=== PATIENT | male | born 1975 | race Caucasian/White ===

== ENCOUNTER 2018-06-26 19:16 | Inpatient (IN) ==
[2018-06-26] MEDS ORDERED: 0.9 % Sodium Chloride 1,000 ML IVC ONE (19:53)
--- NOTE | 2018-06-26 19:56 | Emergency Department Note ---
Disposition Clinical Impression: Seizure disorder, Encephalopathy Disposition: Admitted As Inpatient Condition: Fair Seizure HPI - General Chief Complaint: ED Seizure Stated Complaint: headache,disoriented Time Seen by Provider: 06/26/18 19:31 Source: patient Mode of arrival: ambulatory Limitations: no limitations Nursing Notes Reviewed: Yes Vital Signs Reviewed: Yes - History of Present Illness HPI Narrative: 43-year-old male history of seizure disorder presents for evaluation of disorientation. Patient's history provided V the family at bedside. Patient patient had a seizure proximally 3 days ago decided to burger. States that he has had 2 seizures that prompted that ED visit and hospitalization. Patient observed overnight and was sent home. Since in the patient's had 3 seizures yesterday the longest lasting proximally 20 minutes. No abortive medication was given. Described as generalized convulsive seizures with postictal periods. Patient denied any chest pain, short of breath, fevers. Family states that his seizures are typically do not last that long. Patient reports that he has been taking seizure medications as prescribed. Patient denies any abdominal pain. Patient's family became concerned today as the patient's been acting differently over the past 24 hours. States the patient has seen things that are not entirely there. Also states the patient has been hearing things that are not there is well. Patient's also been acting inappropriately for the family that is not his normal self. - Related Data Allergies Allergy/AdvReac Type Severity Reaction Status Date / Time No Known Allergies Allergy Verified 06/26/18 20:04 All systems ED: reviewed and negative except as stated. Constitutional: Denies: fever Cardiovascular: Denies: chest pain Respiratory: Denies: cough Gastrointestinal: Denies: abdominal pain, nausea, vomiting Musculoskeletal: Denies: back pain, neck pain Past Medical History - Past Medical History Source: patient Medical history: Reports: diabetes, hypertension Psychiatric history: Reports: no psych history - Social History Smoking Status: Never smoker Alcohol use: Reports: none Drug use: Reports: none Physical Exam - General Limitations: altered mental status General appearance: alert - Head Head exam: atraumatic, normocephalic, normal inspection - Eye Eye exam: Present: normal appearance, PERRL, EOMI - ENT ENT exam: normal exam, mucous membranes moist - Neck Neck exam: Present: normal inspection - Chest Chest inspection: Present: normal inspection, symmetric chest wall rise - Respiratory Respiratory exam: Present: normal lung sounds bilaterally. Absent: respiratory distress - Cardiovascular Cardiovascular exam: Present: regular rate, normal rhythm. Absent: systolic murmur - Abdominal Exam Abdominal exam: Present: soft, Non-Tender - Extremities Exam Extremities exam: Present: normal inspection. Absent: pedal edema - Back Exam Back exam: Present: normal inspection - Neurological Exam Neurological exam: Present: alert, CN II-XII intact. Absent: oriented X3 - Expanded Neurological Exam Patient oriented to: Present: person, place Speech: Present: fluid speech Cranial nerves: EOM function (II, III, IV, ): Normal, facial sensation (V): Normal, facial palsy (VII): Normal, spinal accessory function (XI): Normal, tongue deviation (XII): Normal Motor strength - LUE: 5/5 Motor strength - RUE: 5/5 Motor strength - LLE: 5/5 Motor strength - RLE: 5/5 Coma Scale Eye Opening: Spontaneous Coma Scale Motor Response: Obeys Commands Coma Scale Verbal Response: Confused Coma Scale Total: 14 - Skin Skin exam: Present: warm, dry, intact, normal color Course Course Narrative: Patient seen and examined. Patient will get basic laboratory evaluation, and drug levels, urinalysis urine drug screen. Patient also get CT imaging of the head. Will tend to gain records from his hospitalization at [facility]. - Reevaluation(s) Reevaluation #1: Patient's lab results and ED course was discussed with the patient family at bedside. All questions were answered. Time: 22:22 - Consultations Consultation #1: Discussed case with Dr. Garcia, neurology. Was aware of plan of care. States that Depakote typically causes elevated ammonia levels. We will check a Depakote level. Family is not entirely reliable on the patient's medications. Recommended loading with Dilantin. Time: 21:22 Consultation #2: Dr. Dubose discussed the case with hepatology at [facility] who felt this was not related to the liver given the unremarkable labs and INR and trans-aminases. States that they would pursue neurologic evaluation for the elevated ammonia level. Time: 23:43 Vital Signs Temperature 98.2 F 06/26/18 19:23 Pulse Rate 86 06/26/18 19:23 Respiratory Rate 18 06/26/18 19:23 Blood Pressure 170/83 06/26/18 19:23 O2 Sat by Pulse Oximetry 97 06/26/18 19:23 Temperature 98.7 F 06/27/18 00:25 Pulse Rate 79 06/27/18 00:25 Respiratory Rate 16 06/27/18 03:35 Blood Pressure 140/85 06/27/18 03:35 O2 Sat by Pulse Oximetry 100 06/27/18 03:35 Oxygen Delivery Oxygen Delivery Room Air Seizure - MDM Narrative Medical decision making narrative: Patient presents with confusion and altered mental status with disorientation. Patient does have history of seizure disorder. Patient has been having seizures concerns for possible post ictal. Patient does not appear to be having any subclinical seizures. Patient had subtherapeutic levels and was loaded with Dilantin per neurology's recommendations. Patient also is noted have an elevated ammonia level. Etiology of this is unclear as the patient does not appear to be Depakote toxic. Patient was given lactulose. Patient will be admitted to the hospital service to help ensure symptom resolution. Ultimately the patient's case was also discussed with hepatology at [facility]. They recommended did not believe that this was related to his liver given his normal liver function tests. Stated they would continue to pursue MANUAL LAT[employer]ACHIN[employer] etiology of his encephalopathy. Agreed with the lactulose. Clinically on exam the patient does not appear to have any signs would exhibit any meningitis symptoms. Patient's altered mental status is likely secondary to his metabolic abnormalities. - Lab Data Lab results reviewed: Yes I reviewed the patient's lab results. Result diagrams: 06/27/18 03:15 06/27/18 03:15 Lab Results 06/26/18 06/26/18 06/26/18 Range/Units 20:00 20:00 20:00 WBC 6.6 (4.3-11.1) K/mcL RBC 4.45 (4.19-5.50) M/mcL Hgb 14.4 (12.9-16.9) g/dL Hct 40.1 (37.5-50.1) % MCV 90.1 (83.0-100.0) fL MCH 32.4 (28.0-33.3) pg MCHC 35.9 H (31.6-35.5) g/dL RDW 13.5 (11.5-14.5) % Plt Count 127 L (140-400) K/mcL MPV 10.7 (9.4-12.4) fL Immature Gran % 0.2 (0-4) % Seg Neutrophils % 39.7 % Lymphocytes % 45.5 % Monocytes % 11.5 % Eosinophils % 1.7 % Basophils % 1.4 % Neutrophils # 2.6 (1.6-8.9) K/mcL Lymphocytes # 3.0 (0.6-4.6) K/mcL Monocytes # 0.8 (0.0-1.3) K/mcL Eosinophils # 0.1 (0.0-0.6) K/mcL Basophils # 0.1 (0.0-0.2) K/mcL PT (9.4-12.1) Seconds INR Sodium 141 (136-145) mEq/L Potassium 3.6 (3.5-5.1) mEq/L Chloride 109 H (98-107) mEq/L Carbon Dioxide 22 L (23-29) mEq/L BUN 8 (6-20) mg/dL Creatinine 0.91 (0.70-1.30) mg/dL Est GFR ( Amer) > 60 (> 60) Est GFR (Non-Af Amer) > 60 (> 60) BUN/Creatinine Ratio 9 (6-26) Glucose 141 H (70-105) mg/dL Calculated Osmolality 293 (280-300) Calcium 9.3 (8.6-10.3) mg/dL Phosphorus 3.6 (2.7-4.5) mg/dL Magnesium 1.9 (1.6-2.6) mg/dL Total Bilirubin 1.3 H (0.3-1.0) mg/dL AST 15 (13-39) Units/L ALT 11 (7-52) Units/L Alkaline Phosphatase 77 (34-104) Units/L Ammonia 130 H (16-53) mcmol/L Troponin I 0.03 (< 0.04) ng/mL Serum Total Protein 8.1 (6.4-8.9) g/dL Albumin 4.0 (3.5-5.7) g/dL Globulin 4.1 H (2.4-3.5) g/dL Albumin/Globulin Ratio 1.0 L (1.1-2.2) Urine Color (Yellow) Urine Clarity (Clear) Urine pH (5.0-8.0) pH Units Ur Specific [place] (1.010-1.025) Urine Protein (Neg-Trace) mg/dL Urine Glucose (UA) (Normal) mg/dL Urine Ketones (Negative) mg/dL Urine Blood (Negative) Urine Nitrite (Negative) Urine Bilirubin (Negative) Urine Urobilinogen (Normal) mg/dL Ur Leukocyte Esterase (Negative) Urine Opiates Screen (Elfkrm=110) ng/mL Ur Barbiturates Screen (Iraonr=731) ng/mL Phenytoin < 0.5 L (10.0-20.0) mcg/mL Valproic Acid < 4 L (50-100) mcg/mL Carbamazepine < 1 L (4-12) mcg/mL Ur Phencyclidine Scrn (Cutoff=25) ng/mL Ur Amphetamines Screen (Tsdrou=6940) ng/mL U Benzodiazepines Scrn (Addtmc=376) ng/mL Urine Cocaine Screen (Cutoff= 300) ng/mL U Marijuana (THC) Screen (Cutoff = 50) ng/mL Ur Drug Screen Interp Ethyl Alcohol < 10 (Less than 10) mg/dL 06/26/18 06/26/18 06/26/18 Range/Units 20:00 20:25 20:25 WBC (4.3-11.1) K/mcL RBC (4.19-5.50) M/mcL Hgb (12.9-16.9) g/dL Hct (37.5-50.1) % MCV (83.0-100.0) fL MCH (28.0-33.3) pg MCHC (31.6-35.5) g/dL RDW (11.5-14.5) % Plt Count (140-400) K/mcL MPV (9.4-12.4) fL Immature Gran % (0-4) % Seg Neutrophils % % Lymphocytes % % Monocytes % % Eosinophils % % Basophils % % Neutrophils # (1.6-8.9) K/mcL Lymphocytes # (0.6-4.6) K/mcL Monocytes # (0.0-1.3) K/mcL Eosinophils # (0.0-0.6) K/mcL Basophils # (0.0-0.2) K/mcL PT 15.9 H (9.4-12.1) Seconds INR 1.4 Sodium (136-145) mEq/L Potassium (3.5-5.1) mEq/L Chloride (98-107) mEq/L Carbon Dioxide (23-29) mEq/L BUN (6-20) mg/dL Creatinine (0.70-1.30) mg/dL Est GFR ( Amer) (> 60) Est GFR (Non-Af Amer) (> 60) BUN/Creatinine Ratio (6-26) Glucose (70-105) mg/dL Calculated Osmolality (280-300) Calcium (8.6-10.3) mg/dL Phosphorus (2.7-4.5) mg/dL Magnesium (1.6-2.6) mg/dL Total Bilirubin (0.3-1.0) mg/dL AST (13-39) Units/L ALT (7-52) Units/L Alkaline Phosphatase (34-104) Units/L Ammonia (16-53) mcmol/L Troponin I (< 0.04) ng/mL Serum Total Protein (6.4-8.9) g/dL Albumin (3.5-5.7) g/dL Globulin (2.4-3.5) g/dL Albumin/Globulin Ratio (1.1-2.2) Urine Color Yellow (Yellow) Urine Clarity Clear (Clear) Urine pH 6.5 (5.0-8.0) pH Units Ur Specific [place] 1.010 (1.010-1.025) Urine Protein Negative (Neg-Trace) mg/dL Urine Glucose (UA) Normal (Normal) mg/dL Urine Ketones Negative (Negative) mg/dL Urine Blood Negative (Negative) Urine Nitrite Negative (Negative) Urine Bilirubin Negative (Negative) Urine Urobilinogen 4.0 H (Normal) mg/dL Ur Leukocyte Esterase Negative (Negative) Urine Opiates Screen Negative (Gatapf=504) ng/mL Ur Barbiturates Screen Negative (Knxuwm=518) ng/mL Phenytoin (10.0-20.0) mcg/mL Valproic Acid (50-100) mcg/mL Carbamazepine (4-12) mcg/mL Ur Phencyclidine Scrn Negative (Cutoff=25) ng/mL Ur Amphetamines Screen Negative (Zqvsap=7098) ng/mL U Benzodiazepines Scrn Negative (Ecddrk=079) ng/mL Urine Cocaine Screen Negative (Cutoff= 300) ng/mL U Marijuana (THC) Screen Negative (Cutoff = 50) ng/mL Ur Drug Screen Interp See Below Ethyl Alcohol (Less than 10) mg/dL - EKG Data EKG attestation: Yes I reviewed and interpreted this EKG. EKG shows normal: sinus rhythm Rate: normal Rhythm: NSR [place]/QRS: normal ST segment depression in: v2, v3, v4 Interpretation: no acute changes, nonspecific ST-T wave changes S.B.A.R. - S.[email or web address].ASumi Situation: Demographics Background: Presenting Complaint Assessment: Vital Signs, Course and respsone to treatment, Patient/Family Expectation Recommendation: Barrier(s) to disposition, Recommendation based on pending studies, treatments, or consults S.B.A.RJelani Report Given to: Dr. Mimi Guallpa Repor Time: 22:08 Attestation Statement - Attestation Attestation: I examined this patient and my medical decision-making was reviewed with the Resident Physician. I agree with the documented findings, disposition and treatment plan as described except to the extent set forth below. Findings consistent with encephalopathy. Discussed case with on-call storm window installer at [facility] who felt this is a neurological problem and not related to the liver dysfunction. Before meals nail to normal, total bilirubin is mildly elevated, no history of cirrhotic disease. We will admit for mental status clearance, start lactulose, discussed case with hospitalist.
[2018-06-26 20:10] LABS: Basophils # 0.1 K/mcL (0.0-0.2); Basophils % 1.4 %; Eosinophils # 0.1 K/mcL (0.0-0.6); Eosinophils % 1.7 %; Hematocrit 40.1 % (37.5-50.1); Hemoglobin 14.4 g/dL (12.9-16.9); Immature Granulocytes % 0.2 % (0-4); Lymphocytes % 45.5 %; Mean Corpuscular HGB Conc 35.9 g/dL (31.6-35.5); Mean Corpuscular Hemoglobin 32.4 pg (28.0-33.3); Mean Corpuscular Volume 90.1 fL (83.0-100.0); Mean Platelet Volume 10.7 fL (9.4-12.4); Monocytes # 0.8 K/mcL (0.0-1.3); Monocytes % 11.5 %; Neutrophils # 2.6 K/mcL (1.6-8.9); Platelet Count 127 K/mcL (140-400); Red Blood Count 4.45 M/mcL (4.19-5.50); Red Cell Distribution Width 13.5 % (11.5-14.5); Segmented Neutrophils % 39.7 %
[2018-06-26 20:39] LABS: Bilirubin,Urine Negative (Negative); Blood,Urine Negative (Negative); Clarity,Urine Clear (Clear); Color,Urine Yellow (Yellow); Glucose,Urine (UA) Normal (Normal); Ketones,Urine Negative (Negative); Leukocyte Esterase,Urine Negative (Negative); Nitrite,Urine Negative (Negative); PH,Urine 6.5 pH Units (5.0-8.0); Protein,Urine Negative (Neg-Trace)
[2018-06-26 20:53] LABS: Alanine Aminotransferase 11 Units/L (7-52); Alkaline Phosphatase 77 Units/L (34-104); Aspartate Amino Transferase 15 Units/L (13-39); BUN/Creatinine Ratio 9 (6-26); Bilirubin,Total 1.3 mg/dL (0.3-1.0); Blood Urea Nitrogen 8 mg/dL (6-20); Calcium 9.3 mg/dL (8.6-10.3); Carbamazepine (Tegretol) < 1 mcg/mL (4-12); Carbon Dioxide 22 mEq/L (23-29); Chloride 109 mEq/L (98-107); Globulin 4.1 g/dL (2.4-3.5); Glucose 141 mg/dL (70-105); Magnesium 1.9 mg/dL (1.6-2.6); Osmolality,Calculated 293 (280-300); Phenytoin (Dilantin) < 0.5 mcg/mL (10.0-20.0); Phosphorous 3.6 mg/dL (2.7-4.5); Potassium 3.6 mEq/L (3.5-5.1); Sodium 141 mEq/L (136-145); Total Protein 8.1 g/dL (6.4-8.9); Troponin I 0.03 ng/mL (< 0.04); eGFR For Non-African Americans > 60 (> 60)
[2018-06-26 20:58] LABS: Amphetamine Screen,Urine Negative ng/mL (Cutoff=1000); Barbiturate Screen,Urine Negative ng/mL (Cutoff=200); Benzodiazepines Screen,Urine Negative ng/mL (Cutoff=200); Cannabinoid Screen,Urine Negative ng/mL (Cutoff = 50); Cocaine Screen,Urine Negative ng/mL (Cutoff= 300); Opiate Screen,Urine Negative ng/mL (Cutoff=300); Phencyclidine Screen,Urine Negative ng/mL (Cutoff=25)
[2018-06-26] MEDS ORDERED: Lactulose Oral Soln 20 GM/30 ML UDC PO ONE (21:05)
[2018-06-26 21:41] LABS: Valproate < 4 mcg/mL (50-100)
[2018-06-26] MEDS ORDERED: Phenytoin 1,000 MG in SYRINGE 1 EACH IVPB ONE (21:49)
--- NOTE | 2018-06-26 22:38 | Internal Med History&Physical ---
<Peewee Alvarado - Last Filed: 06/27/18 01:30> Date of Encounter: 06/26/18 Time of Encounter: 22:38 Internal Medicine - H&P: HPI Chief complaint: Seizure Admitted From: Home History of present illness: Mr. Carreon is a 43 year old male with a PMH of DM type 2, HTN, and Seizure disorder who presented form home due to recurrent seizure activity. Of note, patient was admitted at [facility] 3 days ago for similar symptoms. Patient was discharged home without abortive medication after overnight observation. He presented to the [facility] ED today because family reports he had two more witnessed generalized convulsive seizures with postictal periods. Patient is very confused on exam and unable to provide adequate history of present illness. The patient has been seeing things and hearing things for the past 24 hours that other people don't see or hear according to his family. This is an acute change from his baseline mental status. Patient reports that he has been taking all of his seizure medications as prescribed. Patient denies fever, chills, head or neck trauma, tongue trauma, CP, SOB, abd pain, N/V/D, constipation, urinary incontinence, dysuria, leg edema, or extremity injuries. Past Med Surg Social Fam HX - Past Medical History Medical history: diabetes, hypertension Psychiatric history: no psych history - Past Surgical History Surgical History: no surgical history Additional surgical history: EEG - Social History Smoking Status: Never smoker Alcohol use: none Drug use: none Occupational status: employed ("[employer]") Current living situation: Home, With Family Activity Level: Independent ambulation - Family History Mother Living Status: Still Living Hx Family Neuromuscular Disorders: No Hx Family Neurologic Disorders: No Hx Family Psychosocial Disorders: Yes (ADHD) Father Living Status: Still Living Hx Family Neuromuscular Disorders: No Hx Family Neurologic Disorders: No Internal Medicine - H&P: Meds 3 Allergy/AdvReac Type Severity Reaction Status Date / Time No Known Allergies Allergy Verified 06/26/18 20:04 ROS unobtainable: due to mental status All Systems PM: A 10-system review of systems was performed and is negative for pertinent findings except as documented above in the HPI. - Constitutional Vitals: Temp Pulse Resp BP Pulse Ox 98.2 F 18 85 128/74 96 06/26/18 19:23 06/26/18 21:19 06/26/18 21:19 06/26/18 21:19 06/26/18 21:19 General appearance: Present: cooperative, A&O X 2, no acute distress, obese. Absent: answers questions appropriately - Head Head exam: Present: atraumatic, normocephalic - Eye Eye exam: Present: EOMI, PERRL, conjuntiva pink, sclera anicteric Pupils: Present: PERRL - ENT ENT exam: Present: mucous membranes dry, normal oropharynx - Neck Neck exam general surgery: Present: full ROM, normal inspection, supple, trachea midline. Absent: lymphadenopathy, tenderness, nuchal rigidity - Respiratory Respiratory exam: Present: CTAB. Absent: accessory muscle use, rales, rhonchi, wheezes - Cardiovascular Cardiovascular exam: Present: RRR, +S1, +S2. Absent: diastolic murmur, gallop, rubs, systolic murmur - GI/Abdominal GI/Abdominal exam: Present: guarding (RUQ), normal bowel sounds, soft, no peritoneal signs. Absent: distended, tenderness - Extremities Exam Extremities exam: Present: normal capillary refill, normal inspection, warm, radial pulses palpable and symmetrical. Absent: calf tenderness, cyanotic, pedal edema - Back Exam Back exam: Present: normal inspection. Absent: paraspinal tenderness, tenderness - Neurological Exam Neurological exam: Present: abnormal gait (unsteady), altered, strengths equal and symetr throughout (unable to co-operate with exam due to AMS, no gross neurologic motor sensory deficits). Absent: motor sensory deficit, pronater drift, facial droop, speech deficit - Skin Skin exam: Present: dry, intact, normal color, warm. Absent: rash Internal Med - H&P Results - Labs CBC & Chem 7: 06/26/18 20:00 06/26/18 20:00 - Pulse Oximetry Interpretation Digit-Finger O2 Sat by Pulse Oximetry: 96 (On room air) - EKG Data -: EKG Interpreted by Myself EKG shows normal: sinus rhythm Rate: normal (nonspecific ST-T wave changes with ST segment depression in: v2, v3, v4) - Impressions ITS Impressions Head CT 06/26/18 19:54 IMPRESSION: No acute intracranial abnormality. Unchanged encephalomalacia within the right anterior temporal lobe, with unchanged slight midline shift to the right secondary to volume loss. No new abnormalities identified. D/ / 06/26/2018 20:41:39 Jayce Rodriguez MD / [email or web address] Interpreting Provider: Jayce Rodriguez MD - Assessment and plan (1) Acute metabolic encephalopathy Current Visit: Yes Status: Acute Assessment and plan: Ammonia level 130 (Depakote typically causes elevated ammonia levels per neurologist) Dilantin level < 0.5, Valproic acid level < 4, Carbamazepine level < 1 CT brain revealed no acute intracranial abnormality. Unchanged encephalomalacia within the right anterior temporal lobe, with unchanged slight midline shift to the right secondary to volume loss. Continue Lactulose 30mg PO q1h until patient has 2-3 soft bowel movements Sitter at bedside (2) Seizure disorder Current Visit: Yes Status: Chronic Assessment and plan: On 06/16/17 his 48 hour ambulatory EEG captured intermittent epileptiform discharged at the right anterior temporal region. 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 Please correlate clinically. Patient admitted at [facility] 3 days ago for similar symptoms. Patient was discharged home without abortive medication after overnight observation. Records were requested. Emergency room physician discussed case with neurologist, Dr. Garcia, who recommended giving a loading dose of Dilantin EEG pending Continue seizure precautions Fall/ aspiration precautions Neurology consulted (3) DM type 2 (diabetes mellitus, type 2) Current Visit: No Status: Chronic Assessment and plan: HGB a1c level 5.9 on 01/04/18 Continue accuchecks and low dose SSI Continue monitoring Qualifiers: Diabetes mellitus fci insulin use: without intermediate project manager use Diabetes mellitus complication status: without complication Qualified Code(s): E11.9 - Type 2 diabetes mellitus without complications (4) HTN (hypertension) Current Visit: Yes Status: Chronic Assessment and plan: Hydralazine prn SBP >170 / DBP >100 Continue monitoring Qualifiers: Hypertension type: essential hypertension Qualified Code(s): I10 - Essential (primary) hypertension (5) Obesity (BMI 30.0-34.9) Current Visit: No Status: Chronic Assessment and plan: Lifestyle modification (6) DVT prophylaxis Current Visit: Yes Status: Acute Assessment and plan: EPCDs - Time Spent With Patient Total time spent is greater than 50% in coordination of care (as documented) at patient's floor/unit and/or counseling patient: <Burton Le P - Last Filed: 06/27/18 07:40> Date of Encounter: 06/27/18 Internal Medicine - H&P: HPI History of present illness: Mr. Carreon is a 43 year old male All Systems PM: A 10-system review of systems was performed and is negative for pertinent findings except as documented above in the HPI. - Constitutional Vitals: Temp Pulse Resp BP Pulse Ox 98.5 F 80 17 145/95 99 06/27/18 07:21 06/27/18 07:21 06/27/18 07:21 06/27/18 07:21 06/27/18 07:21 Internal Med - H&P Results - Labs CBC & Chem 7: 06/27/18 03:15 06/27/18 03:15 Labs: Short CBC 06/27/18 Range/Units 03:15 WBC 6.3 (4.3-11.1) K/mcL Hgb 14.0 (12.9-16.9) g/dL Hct 39.7 (37.5-50.1) % Plt Count 131 L (140-400) K/mcL BMP 06/27/18 03:15 Sodium 140 Potassium 3.5 Chloride 111 H Carbon Dioxide 20 L BUN 7 Creatinine 0.74 Glucose 154 H Calcium 8.9 - Attending Attestation I have seen the patient and performed my own history and physical examination. I have discussed the case with the admitting resident, and I agree with his assessment and plan of care as documented in his H&P. Briefly, patient admitted for seizure activity and post-ictal state. He also had hyperammonemia , possibly secondary to depakote use. Patient was loaded with dilantin in ED. Neurology has been consulted. We will admit inpatient. Obtain EEG in AM. We will await further recommendations from neurology in regards to anti- epileptics. We have started lactulose for hyperammonemia. We will need to investigate this further in the AM, as patient is still confused, and it is difficult to get accurate history from him. - Assessment and plan (1) Seizure disorder Current Visit: Yes Status: Chronic (2) Acute metabolic encephalopathy Current Visit: Yes Status: Acute (3) DM type 2 (diabetes mellitus, type 2) Current Visit: No Status: Chronic Qualifiers: Diabetes mellitus intermediate project manager insulin use: without intermediate project manager use Diabetes mellitus complication status: without complication Qualified Code(s): E11.9 - Type 2 diabetes mellitus without complications (4) Obesity (BMI 30.0-34.9) Current Visit: No Status: Chronic (5) HTN (hypertension) Current Visit: Yes Status: Chronic Qualifiers: Hypertension type: essential hypertension Qualified Code(s): I10 - Essential (primary) hypertension (6) DVT prophylaxis Current Visit: Yes Status: Acute - Time Spent With Patient Total time spent is greater than 50% in coordination of care (as documented) at patient's floor/unit and/or counseling patient:
[2018-06-26] MEDS ORDERED: D5% in Water 1,000 ML IVC PRN (23:33)
[2018-06-26] MEDS ORDERED: Naloxone 0.4 MG/ML INJ IVP PRN (23:33)
[2018-06-26] MEDS ORDERED: Dextrose Gel 15 GM/37.5 ML TUBE PO PRN ×2 (23:33)
[2018-06-26] MEDS ORDERED: *HR* Dextrose 50 % in Water (Syg) 50 ML SYRINGE IVP PRN (23:33)
[2018-06-27 00:09] LABS: INR 1.4; Prothrombin Time 15.9 Seconds (9.4-12.1)
[2018-06-27 00:15] LABS: Ethanol < 10 mg/dL (Less than 10)
[2018-06-27] MEDS: Insulin LISPRO 300 UNITS/3 ML VIAL SQ SCH ×4 (01:49→18:01)
[2018-06-27] MEDS: OXcarbazepine 150 MG TABLET PO SCH ×5 (02:25→20:35)
[2018-06-27] MEDS: 0.9 % Sodium Chloride 1,000 ML IVC SCH ×2 (02:25→11:54)
[2018-06-27] MEDS: Lactulose Oral Soln 20 GM/30 ML UDC PO SCH ×5 (02:25→20:32)
[2018-06-27 03:58] LABS: Hematocrit 39.7 % (37.5-50.1); Mean Corpuscular HGB Conc 35.3 g/dL (31.6-35.5); Mean Corpuscular Hemoglobin 31.6 pg (28.0-33.3); Mean Corpuscular Volume 89.6 fL (83.0-100.0); Mean Platelet Volume 10.9 fL (9.4-12.4); Platelet Count 131 K/mcL (140-400); Red Blood Count 4.43 M/mcL (4.19-5.50); Red Cell Distribution Width 13.5 % (11.5-14.5)
[2018-06-27 04:19] LABS: BUN/Creatinine Ratio 9 (6-26); Blood Urea Nitrogen 7 mg/dL (6-20); Calcium 8.9 mg/dL (8.6-10.3); Carbon Dioxide 20 mEq/L (23-29); Chloride 111 mEq/L (98-107); Glucose 154 mg/dL (70-105); Osmolality,Calculated 291 (280-300); Potassium 3.5 mEq/L (3.5-5.1); Sodium 140 mEq/L (136-145); eGFR For Non-African Americans > 60 (> 60)
[2018-06-27 05:02] LABS: Hepatitis A Antibody IgM Nonreactive (Nonreactive); Hepatitis B Core IgM Nonreactive (Nonreactive); Hepatitis B Surface Antigen Nonreactive (Nonreactive); Hepatitis C Virus Antibody Nonreactive (Nonreactive)
[2018-06-27] MEDS: Pantoprazole 40 MG VIAL IVP SCH (06:46)
[2018-06-27] MEDS: Topiramate 100 MG TABLET PO SCH ×2 (08:36→20:35)
[2018-06-27] MEDS: Acetaminophen 325 MG TABLET PO PRN (08:41)
[2018-06-27] MEDS ORDERED: Lactulose Oral Soln 20 GM/30 ML UDC PO SCH (09:00)
--- NOTE | 2018-06-27 10:38 | Internal Med Progress Note ---
<SpencerEmigdioMoi W - Last Filed: 06/27/18 15:08> Date of Encounter: 06/27/18 Time of Encounter: 10:34 - Assessment and plan (1) Acute metabolic encephalopathy Current Visit: Yes Status: Acute Assessment and plan: Cause of KESHIA unknown at this time seizure related vs metabolic vs infectious Ammonia level 130 (Depakote typically causes elevated ammonia levels per neurologist) today it is 47 after lactulose treatment Dilantin level < 0.5, Valproic acid level < 4, Carbamazepine level < 1 CT brain revealed no acute intracranial abnormality. Unchanged encephalomalacia within the right anterior temporal lobe, with unchanged slight midline shift to the right secondary to volume loss. Continue Lactulose until patient has 2-3 soft bowel movements continue Sitter at bedside (2) Seizure disorder Current Visit: Yes Status: Chronic Assessment and plan: On 06/16/17 his 48 hour ambulatory EEG captured intermittent epileptiform discharged at the right anterior temporal region. 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 Please correlate clinically. Patient admitted at [facility] 3 days ago for similar symptoms. Patient was discharged home without abortive medication after overnight observation. Records were requested. Emergency roomgave loading dose of Dilantin EEG pending Continue current seizure medications per neurology appreciate recs Fall/ aspiration precautions (3) DM type 2 (diabetes mellitus, type 2) Current Visit: No Status: Chronic Assessment and plan: HGB a1c level 5.9 on 01/04/18 Continue accuchecks and low dose SSI Continue monitoring Qualifiers: Diabetes mellitus residential insulin use: without residential use Diabetes mellitus complication status: without complication Qualified Code(s): E11.9 - Type 2 diabetes mellitus without complications (4) HTN (hypertension) Current Visit: Yes Status: Chronic Assessment and plan: Hydralazine prn SBP >170 / DBP >100 Continue monitoring Qualifiers: Hypertension type: essential hypertension Qualified Code(s): I10 - Essential (primary) hypertension (5) DVT prophylaxis Current Visit: Yes Status: Acute Assessment and plan: Pt refused EPCDs - Subjective Interval history: Mr. Carreon is a 43 year old male with a PMH of DM type 2, HTN, and Seizure disorder who presented form home due to recurrent seizure activity. Of note, patient was admitted at [facility] 3 days ago for similar symptoms. Patient was discharged home without abortive medication after overnight observation. He presented to the [facility] ED today because family reports he had two more witnessed generalized convulsive seizures with postictal periods. Patient was sitting up in bed on exam. sitter was in the room. Patient still appears to be altered. He was slow to respond on questioning. Patient states he is doing the same since yesterday. He states he it "tired of this" but wouldn't elaborate. Patient was easily agitated. No seizures today. ammonia level 47 today down from 130 on admission. - Constitutional Vitals: Temp Pulse Resp BP Pulse Ox 98.5 F 80 17 145/95 99 06/27/18 07:21 06/27/18 07:21 06/27/18 07:21 06/27/18 07:21 06/27/18 07:21 General appearance: Present: A&O X 3. Absent: answers questions appropriately - Head Head exam: Present: atraumatic, normocephalic - Eye Eye exam: Present: EOMI, normal appearance Pupils: Present: PERRL - Respiratory Respiratory exam: Present: CTAB. Absent: accessory muscle use, respiratory distress, rhonchi, stridor, wheezes - Cardiovascular Cardiovascular exam: Present: RRR, +S1, +S2 - GI/Abdominal GI/Abdominal exam: Present: normal bowel sounds, soft. Absent: diminished bowel sounds, rebound - Neurological Exam Neurological exam: Present: CN II-XII intact - Psychiatric Psychiatric exam: Present: agitated, flat affect (some inappropriate responses) Internal Medicine: Result - Labs CBC & Chem 7: 06/27/18 03:15 06/27/18 03:15 Labs: Short CBC 06/27/18 Range/Units 03:15 WBC 6.3 (4.3-11.1) K/mcL Hgb 14.0 (12.9-16.9) g/dL Hct 39.7 (37.5-50.1) % Plt Count 131 L (140-400) K/mcL BMP 06/27/18 03:15 Sodium 140 Potassium 3.5 Chloride 111 H Carbon Dioxide 20 L BUN 7 Creatinine 0.74 Glucose 154 H Calcium 8.9 - ABG Interpretation ABG results: PT/INR, D-dimer PT 15.9 Seconds (9.4-12.1) H 06/26/18 20:00 - VTE Documentation of Mechanical Device: Intermittent pneumatic compression device Consult Discharge Plan - Plan Referrals: Henri Montejo DO [Primary Care Provider] - <Janis Chaparro - Last Filed: 06/27/18 22:37> Date of Encounter: 06/27/18 - Constitutional Vitals: Temp Pulse Resp BP Pulse Ox 99.4 F 72 17 131/94 97 06/27/18 19:33 06/27/18 19:33 06/27/18 19:33 06/27/18 19:33 06/27/18 19:33 Internal Medicine: Result - Labs CBC & Chem 7: 06/27/18 03:15 06/27/18 03:15 Labs: Short CBC 06/27/18 Range/Units 03:15 WBC 6.3 (4.3-11.1) K/mcL Hgb 14.0 (12.9-16.9) g/dL Hct 39.7 (37.5-50.1) % Plt Count 131 L (140-400) K/mcL BMP 06/27/18 03:15 Sodium 140 Potassium 3.5 Chloride 111 H Carbon Dioxide 20 L BUN 7 Creatinine 0.74 Glucose 154 H Calcium 8.9 - ABG Interpretation ABG results: PT/INR, D-dimer PT 15.9 Seconds (9.4-12.1) H 06/26/18 20:00 - Impressions Impressions Abdomen Ultrasound 06/27/18 13:00 IMPRESSION: Coarsened liver echotexture with slightly nodular contour concerning for cirrhosis. No other liver abnormality noted. Nonspecific wall thickening to the gallbladder which otherwise appears unremarkable without findings for acute cholecystitis. If there is persistent clinical concern for gallbladder pathology consider further evaluation with nuclear medicine study. Nonvisualization of the pancreas. D/ / 06/27/2018 14:02:37 Satya Villafuerte MD / Shannon Elizondo Interpreting Provider: Satya Villafuerte MD - Attending Attestation I examined this patient and my medical decision-making was reviewed with the Resident Physician. I agree with the documented findings, disposition and treatment plan as described except to the extent set forth below. Patient has been removing IV sites multiple times today. Patient has flat affect this AM and not easily cooperative with exam. Lungs CTAB, CVS: RRR. Neuro CN II-XII grossly intact. INR elevated at 1.4. Ammonia was in 130s now is within normal limits. No reports of seizure like activities today. 1. Acute metabolic encephalopathy - Seizures vs hyperammonemia vs psychiatric in nature vs other 2. Seizure disorder 3. DM 4. Hypertension - Appreciate Neurology input. Currently getting EEG - Liver biopsy scheduled for today - Continue seizure medications as per Neurology guidance. Appreciate input.
--- NOTE | 2018-06-27 12:26 | Neurology - Consult Note ---
<Leopoldo Daniel - Last Filed: 06/27/18 12:35> Date of Encounter: 06/27/18 Time of Encounter: 11:50 Assessment and Plan (1) Acute metabolic encephalopathy Current Visit: Yes Status: Acute Code(s): G93.41 - Metabolic encephalopathy SNOMED Code(s): 40338508, 756170367 (2) Seizure disorder Current Visit: Yes Status: Chronic Code(s): G40.909 - Epilepsy, unspecified , not intractable, without status epilepticus SNOMED Code(s): 082783267 History of Present Illness Chief complaint: Neurology consult for seizure/confusion HPI: Mr. Carreon is a 43 year old male with a PMH significant for seizure's who he is a pt of Dr Wang, HTN and DM with neurology being consulted for seizures and confusion. Most of the history is obtained from nursing staff and his medical record as he is not providing adequate history due to confusion. 4 days ago he had seizure activity and went to the ED where he was observed overnight and sent home without any antiepileptics given. The next day, he had 2 seizures that were described as "major" and witnessed by his . He denies remembering the event or leading up to the event. His reported he has been confused for about a week and has been very confused since having the seizure activity. He reports losing bladder control he noticed on the way to [place] ED. He says he has been very fatigued and has some minor muscle weakness since. He thinks the last time he had a seizure was months ago. He takes phenytoin and valproic acid at home and says he does not miss any doses. He denies having any aura or knows he is about to have an event. He denies any dizziness, vision changes, diplopia , blurry vision, JI, recent illness/vomiting/diarrhea, cocaine use, anxiety, falls/head trauma, muscle soreness, parasthesia's, or loss of bowel function. Past Med Surg Social Fam HX - Past Medical History Medical history: diabetes, hypertension Psychiatric history: no psych history - Past Surgical History Surgical History: no surgical history Additional surgical history: EEG - Social History Smoking Status: Never smoker Alcohol use: none Drug use: none - Family History Mother Living Status: Still Living Hx Family Neuromuscular Disorders: No Hx Family Neurologic Disorders: No Hx Family Psychosocial Disorders: Yes (ADHD) Father Living Status: Still Living Hx Family Neuromuscular Disorders: No Hx Family Neurologic Disorders: No Medications and Allergies Amitriptyline [Elavil] 50 mg PO DAILY 06/27/18 [History] Metformin HCl [Glucophage] 1,000 mg PO BID 06/27/18 [History] OXcarbazepine [Oxcarbazepine] 300 mg PO QID 06/27/18 [History] Omeprazole [PriLOSEC] 20 mg PO DAILY 06/27/18 [History] Sertraline [Zoloft] 50 mg PO DAILY 06/27/18 [History] Topiramate [Topamax] 100 mg PO BID 06/27/18 [History] 3 Allergy/AdvReac Type Severity Reaction Status Date / Time No Known Allergies Allergy Verified 06/26/18 20:04 All Systems: The remainder of the systems were reviewed and are negative - Constitutional Constitutional ROS IM: fatigue, lethargy - Neurological Neurological ROS: as per HPI Physical Examination - Vital Signs Vital Signs: Initial Vital Signs Temp Pulse Resp BP Pulse Ox 98.2 F 86 18 170/83 97 06/26/18 19:23 06/26/18 19:23 06/26/18 19:23 06/26/18 19:23 06/26/18 19:23 - Constitutional General appearance: comfortable - Neurologic Sensorimotor examination: intact Motor examination - right side: 5/5: deltoids, biceps, triceps, wrist flexion, wrist extension, diabetes manager, hip flexors, tibialis Anterior, quadriceps, toe extension (EHL), plantarflexion Motor examination - left side: 5/5: deltoids, biceps, triceps, wrist flexion, wrist extension, hip flexors, diabetes manager, quadriceps, tibialis Anterior, toe extension (EHL), plantarflexion Detailed sensory examination: intact Mental Status Examination: drowsy, lethargic, agitated, opens eyes to voice, follows simple commands, not reliable historian Cranial nerve examination: PERRL, EOMI, visual maravilla intact, sensory to face intact, no facial asymmetry is present, no dysarthria, hearing is intact symmetrically, soft palate elevates bilaterally upon phonation, flexes SCM and trapezius muscles symmetrically with full power, tongue protrudes midline, no atrophy or facial fasiculations present Cerebellar examination: performs finger to nose and heel to brower symmetrically without ataxia, no difficulty with rapid alternating movements Results - Laboratory Findings CBC and BMP: 06/27/18 03:15 06/27/18 03:15 Abnormal lab findings: Abnormal lab results Plt Count 131 K/mcL (140-400) L 06/27/18 03:15 PT 15.9 Seconds (9.4-12.1) H 06/26/18 20:00 Chloride 111 mEq/L (98-107) H 06/27/18 03:15 Carbon Dioxide 20 mEq/L (23-29) L 06/27/18 03:15 Glucose 154 mg/dL (70-105) H 06/27/18 03:15 Total Bilirubin 1.3 mg/dL (0.3-1.0) H 06/26/18 20:00 Globulin 4.1 g/dL (2.4-3.5) H 06/26/18 20:00 Albumin/Globulin Ratio 1.0 (1.1-2.2) L 06/26/18 20:00 Urine Urobilinogen 4.0 mg/dL (Normal) H 06/26/18 20:25 Phenytoin < 0.5 mcg/mL (10.0-20.0) L 06/26/18 20:00 Valproic Acid < 4 mcg/mL (50-100) L 06/26/18 20:00 Carbamazepine < 1 mcg/mL (4-12) L 06/26/18 20:00 Consult Discharge Plan - Plan Referrals: NONE,PCP [Primary Care Provider] - <Gilbert Garcia I - Last Filed: 06/27/18 13:16> Date of Encounter: 06/27/18 Assessment and Plan (1) Seizure disorder Current Visit: Yes Status: Chronic (2) Acute metabolic encephalopathy Current Visit: Yes Status: Acute Pt was seen and examined, my medical decision was reviewed with the Resident Physician, I agree with the documented findings, disposition and treatment plas as described except to the extent set forth below This is a 43 years old male who was been admitted with increasing confusion without any clinical sinus symptoms to be suggestive of seizure. Patient has an history of seizures and is been on multiple medications for it. He noted to have increasing confusion distal not back to his baseline. His ammonia level at the time of admission was noted to be elevated but that has been decreased and back to normal now your functions are within normal limits. At the moment no clinical sinus symptoms to be suggestive of meningitis neither any sinus symptoms to be suggestive of his stroke. With this clinical presentation certainly there is a possibility of nonconvulsive seizures will get a stat EEG. In the meantime we will continue him on current seizure medication. Next and also suggested check for underlying metabolic or any infectious etiologies that might be causing or contributing to his symptoms. If all is been negative perhaps he may need spinal tap to rule out any underlying ARCHITECTURE PROFESSOR infection though clinically does not seem to have any features at the moment. Other treatment is as per primary team also suggested check for other metabolic and infectious etiologies like UTI or any other sinus symptoms of infection Gilbert Garcia MD History of Present Illness HPI: Mr. Carreon is a 43 year old male All Systems: The remainder of the systems were reviewed and are negative Physical Examination - Vital Signs Vital Signs: Initial Vital Signs Temp Pulse Resp BP Pulse Ox 98.2 F 86 18 170/83 97 06/26/18 19:23 06/26/18 19:23 06/26/18 19:23 06/26/18 19:23 06/26/18 19:23 Results - Laboratory Findings CBC and BMP: 06/27/18 03:15 06/27/18 03:15 Abnormal lab findings: Abnormal lab results Plt Count 131 K/mcL (140-400) L 06/27/18 03:15 PT 15.9 Seconds (9.4-12.1) H 06/26/18 20:00 Chloride 111 mEq/L (98-107) H 06/27/18 03:15 Carbon Dioxide 20 mEq/L (23-29) L 06/27/18 03:15 Glucose 154 mg/dL (70-105) H 06/27/18 03:15 Total Bilirubin 1.3 mg/dL (0.3-1.0) H 06/26/18 20:00 Globulin 4.1 g/dL (2.4-3.5) H 06/26/18 20:00 Albumin/Globulin Ratio 1.0 (1.1-2.2) L 06/26/18 20:00 Urine Urobilinogen 4.0 mg/dL (Normal) H 06/26/18 20:25 Phenytoin < 0.5 mcg/mL (10.0-20.0) L 06/26/18 20:00 Valproic Acid < 4 mcg/mL (50-100) L 06/26/18 20:00 Carbamazepine < 1 mcg/mL (4-12) L 06/26/18 20:00
--- NOTE | 2018-06-27 15:12 | EEG/EMG/Oth Biometrics Report ---
EEG Procedure Report EEG Procedure: Routine EEG Procedure Note: FINDINGS: Background rhythm during awake stage shows poorly organized, low voltage fast beta activity in the anterior regions. No [id number] discharges or any lateralizing abnormalities are seen. Almost constant EMG artifacts and tremor artifacts are noted making the study suboptimal. Photic stimulation did not produce any abnormalities. Stage II sleep was not observed. The patient was noted by the radiography technician to be restless and moving all the time during the study and having tremors of the mouth and arms. Stage II sleep was not achieved. IMPRESSION: Suboptimal study, no clear paroxysmal activities or epileptiform discharges were seen. Prominent beta activity in the anterior regions could be secondary to anxiety or medication effect.
[2018-06-27] MEDS: Ondansetron 4 MG/2 ML VIAL IVP PRN (15:35)
--- NOTE | 2018-06-27 17:20 | Electrocardiograph Report ---
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
[2018-06-28] MEDS: Insulin LISPRO 300 UNITS/3 ML VIAL SQ SCH ×4 (01:03→17:55)
[2018-06-28] MEDS: Ondansetron 4 MG/2 ML VIAL IVP PRN ×2 (04:29→20:54)
[2018-06-28] MEDS: Pantoprazole 40 MG VIAL IVP SCH (04:32)
[2018-06-28 08:49] LABS: Basophils # 0.1 K/mcL (0.0-0.2); Basophils % 1.2 %; Eosinophils # 0.1 K/mcL (0.0-0.6); Eosinophils % 0.7 %; Hematocrit 44.5 % (37.5-50.1); Immature Granulocytes % 0.4 % (0-4); Lymphocytes # 2.7 K/mcL (0.6-4.6); Lymphocytes % 25.7 %; Mean Corpuscular HGB Conc 36.4 g/dL (31.6-35.5); Mean Corpuscular Hemoglobin 33.1 pg (28.0-33.3); Mean Corpuscular Volume 90.8 fL (83.0-100.0); Mean Platelet Volume 10.5 fL (9.4-12.4); Monocytes # 1.1 K/mcL (0.0-1.3); Monocytes % 10.7 %; Neutrophils # 6.4 K/mcL (1.6-8.9); Platelet Count 127 K/mcL (140-400); Red Cell Distribution Width 13.4 % (11.5-14.5); Segmented Neutrophils % 61.3 %
[2018-06-28 09:03] LABS: Hemoglobin 16.2 g/dL (12.9-16.9)
[2018-06-28 09:06] LABS: BUN/Creatinine Ratio 9 (6-26); Blood Urea Nitrogen 7 mg/dL (6-20); Calcium 8.9 mg/dL (8.6-10.3); Carbon Dioxide 19 mEq/L (23-29); Chloride 110 mEq/L (98-107); Glucose 138 mg/dL (70-105); Osmolality,Calculated 284 (280-300); Potassium 3.4 mEq/L (3.5-5.1); Sodium 137 mEq/L (136-145); eGFR For Non-African Americans > 60 (> 60)
[2018-06-28] MEDS: Lactulose Oral Soln 20 GM/30 ML UDC PO SCH ×2 (09:30→20:54)
[2018-06-28] MEDS: OXcarbazepine 150 MG TABLET PO SCH ×4 (09:30→20:54)
[2018-06-28] MEDS: Topiramate 100 MG TABLET PO SCH ×2 (09:30→20:54)
--- NOTE | 2018-06-28 10:21 | Internal Med Progress Note ---
<Moi Palmer W - Last Filed: 06/28/18 15:08> Date of Encounter: 06/28/18 Time of Encounter: 10:19 - Assessment and plan (1) Acute metabolic encephalopathy Current Visit: Yes Status: Acute Assessment and plan: Cause of KESHIA unknown at this time seizure related vs metabolic vs infectious white count still normal but has incase from 6.3 to 10.4 ammonia was elevate at 78 lactulose is continued to be given. no bowel movements but patient is NPO still altered IR on board liver biopsy possible Infectious source workup spinal tap MRI of Head and brain (2) Seizure disorder Current Visit: Yes Status: Chronic Assessment and plan: On 06/16/17 his 48 hour ambulatory EEG captured intermittent epileptiform discharged at the right anterior temporal region. 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 Please correlate clinically. Most current EEG showed no seizure activity Patient admitted at [facility] 3 days ago for similar symptoms. Patient was discharged home without abortive medication after overnight observation. Continue current seizure medications per neurology appreciate recs Fall/ aspiration precautions (3) DM type 2 (diabetes mellitus, type 2) Current Visit: No Status: Chronic Assessment and plan: HGB a1c level 5.9 on 01/04/18 Continue accuchecks and low dose SSI Continue monitoring Qualifiers: Diabetes mellitus manager intermediate insulin use: without manager intermediate use Diabetes mellitus complication status: without complication Qualified Code(s): E11.9 - Type 2 diabetes mellitus without complications (4) HTN (hypertension) Current Visit: Yes Status: Chronic Assessment and plan: Hydralazine prn SBP >170 / DBP >100 Continue monitoring Qualifiers: Hypertension type: essential hypertension Qualified Code(s): I10 - Essential (primary) hypertension (5) DVT prophylaxis Current Visit: Yes Status: Acute Assessment and plan: Pt refused EPCDs - Subjective Interval history: Mr. Carreon is a 43 year old male with a PMH of DM type 2, HTN, and Seizure disorder who presented form home due to recurrent seizure activity. Of note, patient was admitted at [facility] 3 days ago for similar symptoms. Patient was discharged home without abortive medication after overnight observation. He presented to the [facility] ED today because family reports he had two more witnessed generalized convulsive seizures with postictal periods. 06/27/18 Patient was sitting up in bed on exam. sitter was in the room. Patient still appears to be altered. He was slow to respond on questioning. Patient states he is doing the same since yesterday. He states he it "tired of this" but wouldn't elaborate. Patient was easily agitated. No seizures today. ammonia level 47 today down from 130 on admission. 06/28/18 no acute events overnight. Sitter at bedside. Patient still with altered mental status. When entering the room he told me to take out my headphones. He did seem less agitated today however, he did not answer questions appropriately. Concerns for hallucination. Admits to sleeping well. States she has some pain in his lower abdominal quadrants. - Constitutional Vitals: Temp Pulse Resp BP Pulse Ox 100.3 F H 82 20 142/84 100 06/28/18 07:55 06/28/18 07:55 06/28/18 07:55 06/28/18 07:55 06/28/18 09:38 General appearance: Present: A&O X 1 (oriented to person). Absent: answers questions appropriately - Head Head exam: Present: atraumatic, normocephalic - Eye Eye exam: Present: EOMI, PERRL - Respiratory Respiratory exam: Present: CTAB. Absent: respiratory distress, rhonchi, stridor , wheezes - Cardiovascular Cardiovascular exam: Present: RRR, +S1, +S2. Absent: +S3, +S4 - GI/Abdominal GI/Abdominal exam: Present: normal bowel sounds, soft, tenderness. Absent: hepatomegaly, splenomegaly - Neurological Exam Neurological exam: Present: altered - Psychiatric Psychiatric exam: Present: agitated (possible hallucinations), flat affect Internal Medicine: Result - Labs CBC & Chem 7: 06/28/18 08:35 06/28/18 08:35 Labs: Short CBC 06/28/18 Range/Units 08:35 WBC 10.4 D (4.3-11.1) K/mcL Hgb 16.2 D (12.9-16.9) g/dL Hct 44.5 (37.5-50.1) % Plt Count 127 L (140-400) K/mcL Neutrophils # 6.4 (1.6-8.9) K/mcL BMP 06/28/18 08:35 Sodium 137 Potassium 3.4 L Chloride 110 H Carbon Dioxide 19 L BUN 7 Creatinine 0.74 Glucose 138 H Calcium 8.9 - ABG Interpretation ABG results: PT/INR, D-dimer PT 15.9 Seconds (9.4-12.1) H 06/26/18 20:00 - Impressions Impressions Abdomen Ultrasound 06/27/18 13:00 IMPRESSION: Coarsened liver echotexture with slightly nodular contour concerning for cirrhosis. No other liver abnormality noted. Nonspecific wall thickening to the gallbladder which otherwise appears unremarkable without findings for acute cholecystitis. If there is persistent clinical concern for gallbladder pathology consider further evaluation with nuclear medicine study. Nonvisualization of the pancreas. D/ / 06/27/2018 14:02:37 Satya Villafuerte MD / Shannon Elizondo Interpreting Provider: Satya Villafuerte MD - VTE Documentation of Mechanical Device: Intermittent pneumatic compression device Consult Discharge Plan - Plan Referrals: Henri Montejo DO [Primary Care Provider] - <Janis Chaparro - Last Filed: 06/28/18 22:23> Date of Encounter: 06/28/18 - Constitutional Vitals: Temp Pulse Resp BP Pulse Ox 99.6 F 84 16 131/81 95 06/28/18 18:44 06/28/18 18:44 06/28/18 18:44 06/28/18 18:44 06/28/18 21:15 Internal Medicine: Result - Labs CBC & Chem 7: 06/28/18 08:35 06/28/18 08:35 Labs: Short CBC 06/28/18 Range/Units 08:35 WBC 10.4 D (4.3-11.1) K/mcL Hgb 16.2 D (12.9-16.9) g/dL Hct 44.5 (37.5-50.1) % Plt Count 127 L (140-400) K/mcL Neutrophils # 6.4 (1.6-8.9) K/mcL BMP 06/28/18 08:35 Sodium 137 Potassium 3.4 L Chloride 110 H Carbon Dioxide 19 L BUN 7 Creatinine 0.74 Glucose 138 H Calcium 8.9 - ABG Interpretation ABG results: PT/INR, D-dimer PT 15.9 Seconds (9.4-12.1) H 06/26/18 20:00 - Impressions Impressions Brain MRI 06/28/18 08:24 IMPRESSION: 1. No acute intracranial abnormality. 2. Stable right temporal encephalomalacia in keeping with sequela of prior infarct. D/ / Satya Ozuna / Satya Ozuna Interpreting Provider: Satya Ozuna - Attending Attestation I examined this patient and my medical decision-making was reviewed with the Resident Physician. I agree with the documented findings, disposition and treatment plan as described except to the extent set forth below. No change in mental status today. Family at bedside stating this is not his baseline, he is usually dependant and able to do tasks on his own and usually has coherent thought process. MRI done today showed no acute findings, showed an old infarct that was seen on a previous MRI. I was informed by IR that LP could not be done because of patient lack of cooperation. Will need close monitoring. Appreciate recommendations 1. Acute encephalopathy 2. Elevated INR - suspect liver pathology related 3. History of CVA as seen on MRI and previous MRI 4. Seizure disorder 5. Diabetes 6. Hypertension - Unsure if LP should be reattempted given his inability to cooperate with exam. There are no signs of acute meningitis/encephalitis - Continue close monitoring. - Continue home seizure medications. - If all remain negative findings, may need Psychiatric eval in case this is psychosis-related mental status changes.
--- NOTE | 2018-06-28 10:32 | Neurology Progress Note ---
<Leopoldo Daniel - Last Filed: 06/28/18 10:34> Date of Encounter: 06/28/18 Time of Encounter: 10:20 Assessment and Plan (1) Acute metabolic encephalopathy Current Visit: Yes Status: Acute Ammonia level back to normal since lactulose Metabolic labs are normal with only slight abnormalities unlikely to cause his state All [employer] imaging has been normal. Abdominal US report concerning for possible cirrhosis Recommend ID workup and will hold off on LP for now due to no supporting symptoms Code(s): G93.41 - Metabolic encephalopathy SNOMED Code(s): 39801356, 407422676 (2) Seizure disorder Current Visit: Yes Status: Chronic No new seizure activity EEG normal from yesterday Labs have been reassuring as unlikely cause of seizures Continue current antiepileptics Code(s): G40.909 - Epilepsy, unspecified, not intractable, without status epilepticus SNOMED Code(s): 942446274 Subjective Principal diagnosis: Acute metabolic encephalopathy with seizure activity Interval history: He seems to be doing better today. He is less agitated with questioning and seems less confused. He gave more appropriate answers. He no longer complains of fatigue and says he slept well. He says he is feeling better. He denies any further seizure activity. He says he no longer is seeing "the tv bounce around" and has no new neurological complaints today. He denies any fever/chills, JI, neck pain, N/V. Objective - Constitutional Vitals: Temp Pulse Resp BP Pulse Ox 100.3 F H 82 20 142/84 100 06/28/18 07:55 06/28/18 07:55 06/28/18 07:55 06/28/18 07:55 06/28/18 09:38 General appearance: Present: cooperative, A&O X 3, no acute distress, answers questions appropriately - Head Head exam: Present: atraumatic, normocephalic - Eye Eye exam: Present: EOMI, normal appearance, PERRL - Neurological Exam Sensorimotor examination: Present: intact Motor examination - right side: 5/5: deltoids, biceps, triceps, wrist flexion, wrist extension, police pilot, hip flexors, tibialis Anterior, quadriceps, toe extension (EHL), plantarflexion Motor examination - left side: 5/5: deltoids, biceps, triceps, wrist flexion, wrist extension, hip flexors, police pilot, quadriceps, tibialis Anterior, toe extension (EHL), plantarflexion Sensation intact: Present: intact Mental Status Examination: Present: alert, oriented to person, oriented to place , oriented to time, follows commands appropriately, answers questions appropriately Cranial nerve examination: Present: PERRL, EOMI, visual maravilla intact, sensory to face intact, no facial asymmetry is present, no dysarthria, hearing is intact symmetrically, soft palate elevates bilaterally upon phonation, flexes SCM and trapezius muscles symmetrically with full power, tongue protrudes midline, no atrophy or facial fasiculations present Cerebellar examination: Present: performs finger to nose and heel to brower symmetrically without ataxia, no difficulty with rapid alternating movements - VTE Documentation of Mechanical Device: Intermittent pneumatic compression device Results - Laboratory Findings CBC and BMP: 06/28/18 08:35 06/28/18 08:35 Abnormal lab findings: Abnormal lab results MCHC 36.4 g/dL (31.6-35.5) H 06/28/18 08:35 Plt Count 127 K/mcL (140-400) L 06/28/18 08:35 PT 15.9 Seconds (9.4-12.1) H 06/26/18 20:00 Potassium 3.4 mEq/L (3.5-5.1) L 06/28/18 08:35 Chloride 110 mEq/L (98-107) H 06/28/18 08:35 Carbon Dioxide 19 mEq/L (23-29) L 06/28/18 08:35 Glucose 138 mg/dL (70-105) H 06/28/18 08:35 POC Glucose 133 mg/dL (70-99) H 06/28/18 05:43 Total Bilirubin 1.3 mg/dL (0.3-1.0) H 06/26/18 20:00 Globulin 4.1 g/dL (2.4-3.5) H 06/26/18 20:00 Albumin/Globulin Ratio 1.0 (1.1-2.2) L 06/26/18 20:00 Urine Urobilinogen 4.0 mg/dL (Normal) H 06/26/18 20:25 Phenytoin < 0.5 mcg/mL (10.0-20.0) L 06/26/18 20:00 Valproic Acid < 4 mcg/mL (50-100) L 06/26/18 20:00 Carbamazepine < 1 mcg/mL (4-12) L 06/26/18 20:00 Consult Discharge Plan - Plan Referrals: Henri Montejo, [Primary Care Provider] - <Gilbert Garcia I - Last Filed: 06/28/18 12:19> Date of Encounter: 06/28/18 Assessment and Plan (1) Seizure disorder Current Visit: Yes Status: Chronic Pt was seen and examined, my medical decision was reviewed with the Resident Physician, I agree with the documented findings, disposition and treatment plas as described except to the extent set forth below Patient continued to have these fluctuating mental status though no obvious sign of infection and no other significant metabolic abnormalities his ammonia and I will seems to be back to normal now. No clinical sinus symptoms to be suggestive of meningitis. As he still not back to the baseline I suggest getting an MRI of the brain to look for any other abnormality. He may need to repeat EEG did have an abnormal EEG in the past at the same time if MRI is normal in patients did not show any sign of improvement perhaps may need a spinal tap. Continue on current seizure medication check the level especially of Dilantin and keep it therapeutic Gilbert Garcia MD (2) Acute metabolic encephalopathy Current Visit: Yes Status: Acute Objective - Constitutional Vitals: Temp Pulse Resp BP Pulse Ox 99.4 F 84 20 152/98 100 06/28/18 11:51 06/28/18 11:51 06/28/18 11:51 06/28/18 11:51 06/28/18 11:51 Results - Laboratory Findings CBC and BMP: 06/28/18 08:35 06/28/18 08:35 Abnormal lab findings: Abnormal lab results MCHC 36.4 g/dL (31.6-35.5) H 06/28/18 08:35 Plt Count 127 K/mcL (140-400) L 06/28/18 08:35 PT 15.9 Seconds (9.4-12.1) H 06/26/18 20:00 Potassium 3.4 mEq/L (3.5-5.1) L 06/28/18 08:35 Chloride 110 mEq/L (98-107) H 07/31/18 08:35 Carbon Dioxide 19 mEq/L (23-29) L 06/28/18 08:35 Glucose 138 mg/dL (70-105) H 06/28/18 08:35 POC Glucose 153 mg/dL (70-99) H 06/28/18 11:45 Total Bilirubin 1.3 mg/dL (0.3-1.0) H 06/26/18 20:00 Ammonia 78 mcmol/L (16-53) H 06/28/18 10:57 Globulin 4.1 g/dL (2.4-3.5) H 06/26/18 20:00 Albumin/Globulin Ratio 1.0 (1.1-2.2) L 06/26/18 20:00 Urine Urobilinogen 4.0 mg/dL (Normal) H 06/26/18 20:25 Phenytoin < 0.5 mcg/mL (10.0-20.0) L 06/26/18 20:00 Valproic Acid < 4 mcg/mL (50-100) L 06/26/18 20:00 Carbamazepine < 1 mcg/mL (4-12) L 06/26/18 20:00
[2018-06-29] MEDS: Insulin LISPRO 300 UNITS/3 ML VIAL SQ SCH ×4 (01:19→17:32)
[2018-06-29 05:27] LABS: Basophils # 0.1 K/mcL (0.0-0.2); Basophils % 1.1 %; Eosinophils # 0.2 K/mcL (0.0-0.6); Eosinophils % 1.3 %; Hematocrit 43.6 % (37.5-50.1); Immature Granulocytes % 0.4 % (0-4); Lymphocytes # 4.1 K/mcL (0.6-4.6); Lymphocytes % 32.9 %; Mean Corpuscular HGB Conc 36.7 g/dL (31.6-35.5); Mean Corpuscular Hemoglobin 32.5 pg (28.0-33.3); Mean Corpuscular Volume 88.6 fL (83.0-100.0); Mean Platelet Volume 10.9 fL (9.4-12.4); Monocytes # 1.2 K/mcL (0.0-1.3); Monocytes % 9.9 %; Neutrophils # 6.7 K/mcL (1.6-8.9); Platelet Count 138 K/mcL (140-400); Red Blood Count 4.92 M/mcL (4.19-5.50); Red Cell Distribution Width 13.3 % (11.5-14.5); Segmented Neutrophils % 54.4 %
[2018-06-29 06:03] LABS: BUN/Creatinine Ratio 13 (6-26); Blood Urea Nitrogen 10 mg/dL (6-20); Carbon Dioxide 17 mEq/L (23-29); Chloride 112 mEq/L (98-107); Glucose 129 mg/dL (70-105); Osmolality,Calculated 291 (280-300); Potassium 3.3 mEq/L (3.5-5.1); Sodium 140 mEq/L (136-145); eGFR For Non-African Americans > 60 (> 60)
[2018-06-29] MEDS: Pantoprazole 40 MG VIAL IVP SCH (06:25)
--- NOTE | 2018-06-29 08:33 | Neurology Progress Note ---
<Leopoldo Daniel - Last Filed: 06/29/18 08:27> Date of Encounter: 06/29/18 Time of Encounter: 08:15 Assessment and Plan (1) Acute metabolic encephalopathy Current Visit: Yes Status: Acute Mental status decline from yesterday. Complaining of people spying on him and watching him through the TV. LP attempted yesterday but unsuccessful due to pt moving on side. Can retry today with some sedation. MRI brain did not show any new lesions but a stable R encephalomalacia from prior infarct. When infectious origin ruled out, would recommend psych consult Code(s): G93.41 - Metabolic encephalopathy SNOMED Code(s): 18491218, 412800444 (2) Seizure disorder Current Visit: Yes Status: Chronic Self reported seizure yesterday, sitter in room denies. Will repeat portable EEG today Continue current antiepileptics Code(s): G40.909 - Epilepsy, unspecified, not intractable, without status epilepticus SNOMED Code(s): 274811002 Subjective Principal diagnosis: Acute metabolic encephalopathy with seizure activity Interval history: He is complaining today of people in the hallway spying on him and listening to everything he says. He indicate his tv has been flickering more and that is someone watching him. He has self reported seizure yesterday afternoon but his room sitter denied this. ID attempted a LP yesterday and was unable to get a sample cause the pt was moving around on his side. Today, he is drowsy and needs questions repeated multiple times before providing an answer that sometimes does not make sense to what was asked. He denies any dizziness, lightheadedness, vision changes, JI, fever/chills, neck pain, N/V, or muscle weakness/soreness. MRI brain from yesterday did not show any acute changes. Objective - Constitutional Vitals: Temp Pulse Resp BP Pulse Ox 98.0 F 84 19 145/93 100 06/29/18 08:05 06/29/18 08:05 06/29/18 08:05 06/29/18 08:05 06/29/18 08:05 General appearance: Present: no acute distress - Neurological Exam Sensorimotor examination: Present: intact Motor examination - right side: 5/5: deltoids, biceps, triceps, wrist flexion, wrist extension, pest control supervisor, hip flexors, tibialis Anterior, quadriceps, toe extension (EHL), plantarflexion Motor examination - left side: 04/02: deltoids, biceps, triceps, wrist flexion, wrist extension, hip flexors, pest control supervisor, quadriceps, tibialis Anterior, toe extension (EHL), plantarflexion Sensation intact: Present: intact Mental Status Examination: Present: drowsy, lethargic, delerious, opens eyes to voice, follows simple commands, impaired cognition, not reliable historian Cranial nerve examination: Present: PERRL, EOMI, visual maravilla intact, sensory to face intact, no facial asymmetry is present, no dysarthria, hearing is intact symmetrically, soft palate elevates bilaterally upon phonation, flexes SCM and trapezius muscles symmetrically with full power, tongue protrudes midline, no atrophy or facial fasiculations present - VTE Documentation of Mechanical Device: Intermittent pneumatic compression device Results - Laboratory Findings CBC and BMP: 06/29/18 05:12 06/29/18 05:12 Abnormal lab findings: Abnormal lab results WBC 12.4 K/mcL (4.3-11.1) H 06/29/18 05:12 MCHC 36.7 g/dL (31.6-35.5) H 06/29/18 05:12 Plt Count 138 K/mcL (140-400) L 06/29/18 05:12 PT 15.9 Seconds (9.4-12.1) H 06/26/18 20:00 Potassium 3.3 mEq/L (3.5-5.1) L 06/29/18 05:12 Chloride 112 mEq/L (98-107) H 06/29/18 05:12 Carbon Dioxide 17 mEq/L (23-29) L 06/29/18 05:12 Glucose 129 mg/dL (70-105) H 06/29/18 05:12 POC Glucose 144 mg/dL (70-99) H 06/28/18 23:59 Total Bilirubin 1.3 mg/dL (0.3-1.0) H 06/26/18 20:00 Ammonia 70 mcmol/L (16-53) H 06/29/18 05:12 Globulin 4.1 g/dL (2.4-3.5) H 06/26/18 20:00 Albumin/Globulin Ratio 1.0 (1.1-2.2) L 06/26/18 20:00 Urine Urobilinogen 4.0 mg/dL (Normal) H 06/26/18 20:25 Phenytoin < 0.5 mcg/mL (10.0-20.0) L 06/26/18 20:00 Valproic Acid < 4 mcg/mL (50-100) L 06/26/18 20:00 Carbamazepine < 1 mcg/mL (4-12) L 06/26/18 20:00 Consult Discharge Plan - Plan Referrals: Henri Montejo DO [Primary Care Provider] - <Gilbert Garcia I - Last Filed: 06/29/18 10:13> Date of Encounter: 06/29/18 Assessment and Plan (1) Seizure disorder Current Visit: Yes Status: Chronic Pt was seen and examined, my medical decision was reviewed with the Resident Physician, I agree with the documented findings, disposition and treatment plas as described except to the extent set forth below Patient continued to have these fluctuating mental status predominantly more paranoid behavior now no focal neurological deficit. No evidence of any clinical DISTRICT [employer]NAGER [employer] infection. With his history of for seizure disorder and being on multiple antiepileptic medication I would like to repeat an EEG to make sure that he is not having any nonconvulsive episodic seizures. MRI of the brain is negative for any acute abnormality. So far neurological workup seems to be negative strongly recommend evaluation by a psychiatrist. Discussed with the primary team Gilbert Garcia MD (2) Acute metabolic encephalopathy Current Visit: Yes Status: Acute Objective - Constitutional Vitals: Temp Pulse Resp BP Pulse Ox 98.0 F 84 19 145/93 100 06/29/18 08:05 06/29/18 08:05 06/29/18 08:05 06/29/18 08:05 06/29/18 08:05 Results - Laboratory Findings CBC and BMP: 06/29/18 05:12 06/29/18 05:12 Abnormal lab findings: Abnormal lab results WBC 12.4 K/mcL (4.3-11.1) H 06/29/18 05:12 MCHC 36.7 g/dL (31.6-35.5) H 06/29/18 05:12 Plt Count 138 K/mcL (140-400) L 06/29/18 05:12 PT 15.9 Seconds (9.4-12.1) H 06/26/18 20:00 Potassium 3.3 mEq/L (3.5-5.1) L 06/29/18 05:12 Chloride 112 mEq/L (98-107) H 06/29/18 05:12 Carbon Dioxide 17 mEq/L (23-29) L 06/29/18 05:12 Glucose 129 mg/dL (70-105) H 06/29/18 05:12 POC Glucose 144 mg/dL (70-99) H 06/28/18 23:59 Total Bilirubin 1.3 mg/dL (0.3-1.0) H 06/26/18 20:00 Ammonia 70 mcmol/L (16-53) H 06/29/18 05:12 Globulin 4.1 g/dL (2.4-3.5) H 06/26/18 20:00 Albumin/Globulin Ratio 1.0 (1.1-2.2) L 06/26/18 20:00 Urine Urobilinogen 4.0 mg/dL (Normal) H 06/26/18 20:25 Phenytoin < 0.5 mcg/mL (10.0-20.0) L 06/26/18 20:00 Valproic Acid < 4 mcg/mL (50-100) L 06/26/18 20:00 Carbamazepine < 1 mcg/mL (4-12) L 06/26/18 20:00
--- NOTE | 2018-06-29 09:11 | Internal Med Progress Note ---
<SpencerEmigdioMoi W - Last Filed: 06/29/18 11:10> Date of Encounter: 06/29/18 Time of Encounter: 09:08 - Assessment and plan (1) Acute encephalopathy Current Visit: Yes Status: Acute Assessment and plan: Cause of encephalopathy unknown at this time seizure related vs metabolic vs infectious white count elevated todayl but has incase from 6.3 to 10.4 to 12.4 today ammonia was elevate at 70 Patient passed swallow eval advanced to regular diet restart lactulose. 1 small bowel movement yesterday still altered dilantin level ordered US concerned from cirrhosis IR on board liver biopsy possible B1, B6, B12, folate ABG Infectious source workup spinal tap unable to be performed yesterday due to non compliance will reattempt today with possible anxiolytic If infectious and metabolic workup negative consider psych consult continue supportive care MRI of Head and brain 1. No acute intracranial abnormality. 2. Stable right temporal encephalomalacia in keeping with sequela of prior infarct. (2) Seizure disorder Current Visit: Yes Status: Chronic Assessment and plan: On 06/16/17 his 48 hour ambulatory EEG captured intermittent epileptiform discharged at the right anterior temporal region. 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 Please correlate clinically. Patient admitted at [facility] 3 days ago for similar symptoms. Patient was discharged home without abortive medication after overnight observation. Most current EEG showed no seizure activity Discussed with neuro possible repeat EEG today Continue current seizure medications per neurology appreciate recs Fall/ aspiration precautions (3) History of CVA (cerebrovascular accident) Current Visit: Yes Status: Acute Assessment and plan: MRI 06/28/18 1. No acute intracranial abnormality. 2. Stable right temporal encephalomalacia in keeping with sequela of prior infarct. 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: without waste management recycling technician use Diabetes mellitus complication status: without complication Qualified Code(s): E11.9 - Type 2 diabetes mellitus without complications (5) HTN (hypertension) Current Visit: Yes Status: Chronic Assessment and plan: Hydralazine prn SBP >170 / DBP >100 Continue monitoring Qualifiers: Hypertension type: essential hypertension Qualified Code(s): I10 - Essential (primary) hypertension (6) Hypokalemia Current Visit: Yes Status: Acute Assessment and plan: Potassium 3.3 today 40 juan potassium chloride PO ordered (7) DVT prophylaxis Current Visit: Yes Status: Acute Assessment and plan: Pt refused EPCDs - Subjective Interval history: Mr. Carreon is a 43 year old male with a PMH of DM type 2, HTN, and Seizure disorder who presented form home due to recurrent seizure activity. Of note, patient was admitted at [facility] 3 days ago for similar symptoms. Patient was discharged home without abortive medication after overnight observation. He presented to the [facility] ED today because family reports he had two more witnessed generalized convulsive seizures with postictal periods. 06/27/18 Patient was sitting up in bed on exam. sitter was in the room. Patient still appears to be altered. He was slow to respond on questioning. Patient states he is doing the same since yesterday. He states he it "tired of this" but wouldn't elaborate. Patient was easily agitated. No seizures today. ammonia level 47 today down from 130 on admission. 06/28/18 no acute events overnight. Sitter at bedside. Patient still with altered mental status. When entering the room he told me to take out my headphones. He did seem less agitated today however, he did not answer questions appropriately. Concerns for hallucination. Admits to sleeping well. States she has some pain in his lower abdominal quadrants. 06/29/18 No acute events overnight. Patient is still altered. Said there were children and people in the room when there wasn't. Asked me to turn off his glasses because there was a listening device hat was giving him a JI. Also stated he had a seizure last night but there was no report of this per bedside sitter. Lumbar puncture has not done yesterday due to patients inability to comply - Constitutional Vitals: Temp Pulse Resp BP Pulse Ox 98.0 F 84 19 145/93 100 06/29/18 08:05 06/29/18 08:05 06/29/18 08:05 06/29/18 08:05 06/29/18 08:05 General appearance: Present: A&O X 1 (oriented to person). Absent: answers questions appropriately - Head Head exam: Present: atraumatic, normocephalic - Eye Eye exam: Present: EOMI, PERRL - Respiratory Respiratory exam: Present: CTAB. Absent: respiratory distress, rhonchi, stridor , wheezes - Cardiovascular Cardiovascular exam: Present: RRR, +S1, +S2. Absent: +S3, +S4 - Neurological Exam Neurological exam: Present: altered. Absent: oriented X3, pronater drift, facial droop - Psychiatric Additional comments: As per HPI Internal Medicine: Result - Labs CBC & Chem 7: 06/29/18 05:12 06/29/18 05:12 Labs: Short CBC 06/29/18 Range/Units 05:12 WBC 12.4 H (4.3-11.1) K/mcL Hgb 16.0 (12.9-16.9) g/dL Hct 43.6 (37.5-50.1) % Plt Count 138 L (140-400) K/mcL Neutrophils # 6.7 (1.6-8.9) K/mcL BMP 06/29/18 05:12 Sodium 140 Potassium 3.3 L Chloride 112 H Carbon Dioxide 17 L BUN 10 Creatinine 0.79 Glucose 129 H Calcium 9.0 - ABG Interpretation ABG results: PT/INR, D-dimer PT 15.9 Seconds (9.4-12.1) H 06/26/18 20:00 - Impressions Impressions Brain MRI 06/28/18 08:24 IMPRESSION: 1. No acute intracranial abnormality. 2. Stable right temporal encephalomalacia in keeping with sequela of prior infarct. D/ / Satya Ozuna / Satya Ozuna Interpreting Provider: Satya Ozuna - VTE Documentation of Mechanical Device: Intermittent pneumatic compression device Consult Discharge Plan - Plan Referrals: Henri Montejo DO [Primary Care Provider] - <Janis Chaparro - Last Filed: 06/29/18 17:42> Date of Encounter: 06/29/18 - Constitutional Vitals: Temp Pulse Resp BP Pulse Ox 99.3 F 75 18 123/79 97 06/29/18 11:33 06/29/18 17:01 06/29/18 17:01 06/29/18 17:01 06/29/18 17:01 Internal Medicine: Result - Labs CBC & Chem 7: 06/29/18 05:12 06/29/18 05:12 Labs: Short CBC 06/29/18 Range/Units 05:12 WBC 12.4 H (4.3-11.1) K/mcL Hgb 16.0 (12.9-16.9) g/dL Hct 43.6 (37.5-50.1) % Plt Count 138 L (140-400) K/mcL Neutrophils # 6.7 (1.6-8.9) K/mcL BMP 06/29/18 05:12 Sodium 140 Potassium 3.3 L Chloride 112 H Carbon Dioxide 17 L BUN 10 Creatinine 0.79 Glucose 129 H Calcium 9.0 - ABG Interpretation ABG results: PT/INR, D-dimer PT 15.9 Seconds (9.4-12.1) H 06/26/18 20:00 - Impressions Impressions Lumbar Puncture Fluoroscopy 06/28/18 08:51 IMPRESSION: Unsuccessful lumbar puncture. D/ / Michele Gonzalez MD / Michele Gonzalez MD Interpreting Provider: Michele Gonzalez MD - Attending Attestation I examined this patient and my medical decision-making was reviewed with the Resident Physician. I agree with the documented findings, disposition and treatment plan as described except to the extent set forth below. Patient more alert today but still confused. at bedside. He is eating without difficulty but does have some paranoid thoughts and delusions. B12 level has returned low, TSH low. LP could not be done yesterday due to non compliance. Ammonia high again today at 70. Restart lactulose now that he can safely eat Replace B12 Neurology following, recommendations appreciated May need Psychiatry consulted tomorrow.
[2018-06-29 10:12] LABS: VBG HCO3 21 mEq/L (21-27); VBG PCO2 37 mmHg (41-51); VBG PH 7.35 pH Units (7.32-7.42); VBG PO2 56 mmHg (25-50)
[2018-06-29] MEDS: Lactulose Oral Soln 20 GM/30 ML UDC PO SCH ×2 (10:51→20:26)
[2018-06-29] MEDS: OXcarbazepine 150 MG TABLET PO SCH ×4 (10:52→20:25)
[2018-06-29] MEDS: Topiramate 100 MG TABLET PO SCH ×2 (10:52→20:25)
[2018-06-29 10:55] LABS: Thyroid Stimulating Hormone 0.258 mcIU/mL (0.340-5.600)
[2018-06-29 10:58] LABS: Acetaminophen < 10 mcg/mL (10-20); Salicylate < 2.5 mg/dL (15.0-30.0)
[2018-06-29 11:05] LABS: Folate 13.4 ng/mL (3.0-16.0)
[2018-06-29 12:48] LABS: Phenytoin (Dilantin) 1.9 mcg/mL (10.0-20.0)
--- NOTE | 2018-06-29 14:40 | EEG/EMG/Oth Biometrics Report ---
EEG Procedure Report EEG Procedure: Routine EEG Procedure Note: Routine 21-channel digital EEG performed and recorded utilizing the standard international 10-20 electrode placement system. FINDINGS: This patient has predominant waking background rhythm which is well- organized, well-developed, average voltage 8 to 10 hertz alpha activity in the posterior regions, symmetrical over the both hemispheres reactive to eye opening and closing, and it is bilaterally synchronous. No [id number] discharges or any lateralizing abnormalities are seen. Photic stimulation and hyperventilation did not produce any convulsive response. No abnormalities were found during the procedure. Intermittent EMG artifacts were seen. Stage II sleep was not achieved. IMPRESSION: Within the broad range of normal EEG, No epileptiform discharges or any other paroxysmal activities or focal abnormalities seen. ( Please note that normal EEG does not exclude the diagnosis of seizure or epilepsy, Clinical correlation is recommended.
[2018-06-29] MEDS: *HR* Enoxaparin 40 MG/0.4 ML SYRINGE SQ SCH (17:22)
[2018-06-29] MEDS: Aspirin Enteric Coated 81 MG Tablet PO SCH (17:22)
[2018-06-29] MEDS ORDERED: Cyanocobalamin (B-12) 1,000 MCG/ML VIAL SQ ONE (17:38)
[2018-06-30 03:48] LABS: Basophils # 0.1 K/mcL (0.0-0.2); Basophils % 1.4 %; Eosinophils # 0.2 K/mcL (0.0-0.6); Eosinophils % 1.8 %; Hematocrit 43.5 % (37.5-50.1); Hemoglobin 15.7 g/dL (12.9-16.9); Immature Granulocytes % 0.3 % (0-4); Mean Corpuscular HGB Conc 36.1 g/dL (31.6-35.5); Mean Corpuscular Volume 88.6 fL (83.0-100.0); Mean Platelet Volume 10.7 fL (9.4-12.4); Monocytes # 1.1 K/mcL (0.0-1.3); Monocytes % 10.5 %; Neutrophils # 4.8 K/mcL (1.6-8.9); Platelet Count 144 K/mcL (140-400); Red Blood Count 4.91 M/mcL (4.19-5.50); Red Cell Distribution Width 13.3 % (11.5-14.5)
[2018-06-30 04:13] LABS: BUN/Creatinine Ratio 13 (6-26); Blood Urea Nitrogen 10 mg/dL (6-20); Calcium 8.9 mg/dL (8.6-10.3); Carbon Dioxide 18 mEq/L (23-29); Chloride 109 mEq/L (98-107); Glucose 140 mg/dL (70-105); Osmolality,Calculated 287 (280-300); Potassium 3.1 mEq/L (3.5-5.1); Sodium 138 mEq/L (136-145); eGFR For Non-African Americans > 60 (> 60)
[2018-06-30 04:15] LABS: Chol/HDL Ratio 3.2 (0-4.9)
[2018-06-30 04:29] LABS: Triiodothyronine (T3) Free 3.23 pg/mL (2.50-3.90)
[2018-06-30] MEDS: Insulin LISPRO 300 UNITS/3 ML VIAL SQ SCH ×4 (07:10→20:47)
[2018-06-30] MEDS: *HR* Enoxaparin 40 MG/0.4 ML SYRINGE SQ SCH (07:11)
[2018-06-30] MEDS: OXcarbazepine 150 MG TABLET PO SCH ×4 (08:48→21:03)
[2018-06-30] MEDS: Aspirin Enteric Coated 81 MG Tablet PO SCH (08:48)
[2018-06-30] MEDS: Topiramate 100 MG TABLET PO SCH ×2 (08:48→21:03)
[2018-06-30] MEDS: Lactulose Oral Soln 20 GM/30 ML UDC PO SCH ×2 (08:48→21:04)
[2018-06-30] MEDS: Cyanocobalamin (B-12) 1,000 MCG TABLET PO SCH (08:48)
--- NOTE | 2018-06-30 08:50 | Neurology Progress Note ---
<Leopoldo Daniel - Last Filed: 06/30/18 09:07> Date of Encounter: 06/30/18 Time of Encounter: 08:30 Assessment and Plan (1) Acute metabolic encephalopathy Current Visit: Yes Status: Acute B12 yst low and being replaced. Will check homocysteine level Lactulose restarted Retry LP with premed lorazepam but further supporting infectious origin not present currently Recommend psych consult as status does not seem to be metabolic/toxic/infectious /neurologic in origin Code(s): G93.41 - Metabolic encephalopathy SNOMED Code(s): 56312116, [id number] (2) Seizure disorder Current Visit: Yes Status: Chronic Repeat EEG yesterday did not show any epileptiform activity Continue current antiepileptics Dilantin level 1.9 mcg/ml Code(s): G40.909 - Epilepsy, unspecified, not intractable, without status epilepticus SNOMED Code(s): 642840074 Subjective Principal diagnosis: Acute metabolic encephalopathy with seizure activity Interval history: He is complaining today of people in the hallway spying on him and listening to everything he says while also indicating his tv has been flickering more and that is someone watching him the same as yesterday. He has self reported seizure yesterday afternoon but his room sitter denied this. He says he was dreaming during the seizure yesterday and that's how he knows it happened. Today , he is not as drowsy and answers questions more quickly than before. He denies any dizziness, lightheadedness, vision changes, JI, fever/chills, neck pain, N/V , or muscle weakness/soreness. Objective - Constitutional Vitals: Temp Pulse Resp BP Pulse Ox 98.2 F 77 16 134/88 97 06/30/18 07:15 06/30/18 07:15 06/30/18 07:15 06/30/18 07:15 06/30/18 07:15 General appearance: Present: no acute distress - Neurological Exam Sensorimotor examination: Present: intact Motor examination - right side: 5/5: deltoids, biceps, triceps, wrist flexion, wrist extension, dental floss packer, hip flexors, tibialis Anterior, quadriceps, toe extension (EHL), plantarflexion Motor examination - left side: 5/5: deltoids, biceps, triceps, wrist flexion, wrist extension, hip flexors, dental floss packer, quadriceps, tibialis Anterior, toe extension (EHL), plantarflexion Sensation intact: Present: intact Mental Status Examination: Present: drowsy, delerious, follows simple commands, impaired cognition, not reliable historian Cranial nerve examination: Present: PERRL, EOMI, visual maravilla intact, sensory to face intact, no facial asymmetry is present, no dysarthria, hearing is intact symmetrically, soft palate elevates bilaterally upon phonation, flexes SCM and trapezius muscles symmetrically with full power, tongue protrudes midline, no atrophy or facial fasiculations present Cerebellar examination: Present: performs finger to nose and heel to brower symmetrically without ataxia, no difficulty with rapid alternating movements - VTE Documentation of Mechanical Device: Intermittent pneumatic compression device Results - Laboratory Findings CBC and BMP: 06/30/18 03:32 06/30/18 03:32 Abnormal lab findings: Abnormal lab results MCHC 36.1 g/dL (31.6-35.5) H 06/30/18 03:32 PT 15.9 Seconds (9.4-12.1) H 06/26/18 20:00 VBG pCO2 37 mmHg (41-51) L 06/29/18 10:03 VBG pO2 56 mmHg (25-50) H 06/29/18 10:03 Potassium 3.1 mEq/L (3.5-5.1) L 06/30/18 03:32 Chloride 109 mEq/L (98-107) H 06/30/18 03:32 Carbon Dioxide 18 mEq/L (23-29) L 06/30/18 03:32 Glucose 140 mg/dL (70-105) H 06/30/18 03:32 POC Glucose 125 mg/dL (70-99) H 06/30/18 06:02 Total Bilirubin 1.3 mg/dL (0.3-1.0) H 06/26/18 20:00 Ammonia 70 mcmol/L (16-53) H 06/29/18 05:12 Globulin 4.1 g/dL (2.4-3.5) H 06/26/18 20:00 Albumin/Globulin Ratio 1.0 (1.1-2.2) L 06/26/18 20:00 HDL Cholesterol 38 mg/dL (40-59) L 06/30/18 03:32 Vitamin B12 138 pg/mL (250-1100) L 06/29/18 09:30 TSH 0.258 mcIU/mL (0.340-5.600) L 06/29/18 09:30 Urine Urobilinogen 4.0 mg/dL (Normal) H 06/26/18 20:25 Salicylates < 2.5 mg/dL (15.0-30.0) L 06/29/18 09:30 Acetaminophen < 10 mcg/mL (10-20) L 06/29/18 09:30 Phenytoin 1.9 mcg/mL (10.0-20.0) L 06/29/18 09:30 Valproic Acid < 4 mcg/mL (50-100) L 06/26/18 20:00 Carbamazepine < 1 mcg/mL (4-12) L 06/26/18 20:00 Consult Discharge Plan - Plan Referrals: Henri Montejo DO [Primary Care Provider] - <Gilbert Garcia I - Last Filed: 06/30/18 13:18> Date of Encounter: 06/30/18 Assessment and Plan (1) Seizure disorder Current Visit: Yes Status: Chronic (2) Acute metabolic encephalopathy Current Visit: Yes Status: Acute Pt was seen and examined, my medical decision was reviewed with the Resident Physician, I agree with the documented findings, disposition and treatment plas as described except to the extent set forth below So far all workup is been negative including MRI of the brain, EEG, blood work did reveal significantly low level of vitamin B12 and folic acid though potentially B12 deficiency can cause memory changes but does does not explain patient paranoid and aggressive behavior which is be very unusual for B12 deficiency He has already received the B12 injection I would suggest that we should continue with oral supplementation with multivitamins including folate Recommend psych evaluation, discussed plan with the family Gilbert Garcia MD Objective - Constitutional Vitals: Temp Pulse Resp BP Pulse Ox 99.3 F 80 16 130/87 94 06/30/18 11:05 06/30/18 11:05 06/30/18 11:05 06/30/18 11:05 06/30/18 11:05 Results - Laboratory Findings CBC and BMP: 06/30/18 03:32 06/30/18 03:32 Abnormal lab findings: Abnormal lab results MCHC 36.1 g/dL (31.6-35.5) H 06/30/18 03:32 PT 15.9 Seconds (9.4-12.1) H 06/26/18 20:00 VBG pCO2 37 mmHg (41-51) L 06/29/18 10:03 VBG pO2 56 mmHg (25-50) H 06/29/18 10:03 Potassium 3.1 mEq/L (3.5-5.1) L 06/30/18 03:32 Chloride 109 mEq/L (98-107) H 06/30/18 03:32 Carbon Dioxide 18 mEq/L (23-29) L 06/30/18 03:32 Glucose 140 mg/dL (70-105) H 06/30/18 03:32 POC Glucose 125 mg/dL (70-99) H 06/30/18 06:02 Total Bilirubin 1.3 mg/dL (0.3-1.0) H 06/26/18 20:00 Ammonia 70 mcmol/L (16-53) H 06/29/18 05:12 Globulin 4.1 g/dL (2.4-3.5) H 06/26/18 20:00 Albumin/Globulin Ratio 1.0 (1.1-2.2) L 06/26/18 20:00 HDL Cholesterol 38 mg/dL (40-59) L 06/30/18 03:32 Vitamin B12 138 pg/mL (250-1100) L 06/29/18 09:30 TSH 0.258 mcIU/mL (0.340-5.600) L 06/29/18 09:30 Urine Urobilinogen 4.0 mg/dL (Normal) H 06/26/18 20:25 Salicylates < 2.5 mg/dL (15.0-30.0) L 06/29/18 09:30 Acetaminophen < 10 mcg/mL (10-20) L 06/29/18 09:30 Phenytoin 1.9 mcg/mL (10.0-20.0) L 06/29/18 09:30 Valproic Acid < 4 mcg/mL (50-100) L 06/26/18 20:00 Carbamazepine < 1 mcg/mL (4-12) L 06/26/18 20:00
--- NOTE | 2018-06-30 10:27 | Internal Med Progress Note ---
<Moi Palmer W - Last Filed: 06/30/18 16:10> Date of Encounter: 06/30/18 Time of Encounter: 10:23 - Assessment and plan (1) Acute encephalopathy Current Visit: Yes Status: Acute Assessment and plan: Cause of encephalopathy unknown at this time seizure related vs metabolic vs infectious WBC count 8.6 still altered US concerned from cirrhosis Slight B12 deficiency Spinal tap attempted after ativan was unsuccessful Plan Psych has been consulted; family approved Considering sedated spinal tap per neuro continue lactulose will reassess tomorrow B12 given follow labs continue supportive care (2) Seizure disorder Current Visit: Yes Status: Chronic Assessment and plan: On 06/16/17 his 48 hour ambulatory EEG captured intermittent epileptiform discharged at the right anterior temporal region. 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 Please correlate clinically. Patient admitted at [facility] days ago for similar symptoms. Patient was discharged home without abortive medication after overnight observation. Most current EEG showed no seizure activity Plan Continue current seizure medications per neurology appreciate recs Fall/ aspiration precautions (3) History of CVA (cerebrovascular accident) Current Visit: Yes Status: Acute Assessment and plan: MRI 06/28/18 1. No acute intracranial abnormality. 2. Stable right temporal encephalomalacia in keeping with sequela of prior infarct. (4) DM type 2 (diabetes mellitus, type 2) Current Visit: No Status: Chronic Assessment and plan: HGB a1c level 5.9 on 01/04/18 Continue accuchecks and low dose SSI Qualifiers: Diabetes mellitus supervisor intermediates insulin use: without fdc use Diabetes mellitus complication status: without complication Qualified Code(s): E11.9 - Type 2 diabetes mellitus without complications (5) HTN (hypertension) Current Visit: Yes Status: Chronic Assessment and plan: Hydralazine prn SBP >170 / DBP >100 Continue monitoring Qualifiers: Hypertension type: essential hypertension Qualified Code(s): I10 - Essential (primary) hypertension (6) Hypokalemia Current Visit: Yes Status: Acute Assessment and plan: Potassium 3.1 today 40 juan potassium chloride PO given this am another scheduled this afternoon (7) DVT prophylaxis Current Visit: Yes Status: Acute - Subjective Interval history: no acute events overnight. Patient still altered, however, he seemed improved since yesterday. He does have a history of waxing and waning mentation throughout the day. Patient was able to say his name date of . And with slight prompting this able to say he was at [place]. He knew the year and the president. However, he did state that the TV was telling him things. Last evening patient exhibited some inappropriate sexual behavior in the restroom. Patient does seem less agitated. States he is writing things down to help him remember because he has been confused the past 3 days. - Constitutional Vitals: Temp Pulse Resp BP Pulse Ox 98.2 F 77 16 134/88 97 06/30/18 07:15 06/30/18 07:15 06/30/18 07:15 06/30/18 07:15 06/30/18 07:15 General appearance: Present: A&O X 1 (With prompting was able to stay where he was and the year). Absent: answers questions appropriately - Eye Eye exam: Present: EOMI, PERRL - Respiratory Respiratory exam: Present: CTAB. Absent: rales, respiratory distress, rhonchi, stridor, wheezes - Cardiovascular Cardiovascular exam: Present: RRR, +S1, +S2. Absent: +S3, +S4 - Neurological Exam Neurological exam: Present: altered, CN II-XII intact. Absent: oriented X3, no focal deficits, facial droop, speech deficit - Psychiatric Additional comments: As per history of present illness Internal Medicine: Result - Labs CBC & Chem 7: 06/30/18 03:32 06/30/18 03:32 Labs: Short CBC 06/30/18 Range/Units 03:32 WBC 10.2 (4.3-11.1) K/mcL Hgb 15.7 (12.9-16.9) g/dL Hct 43.5 (37.5-50.1) % Plt Count 144 (140-400) K/mcL Neutrophils # 4.8 (1.6-8.9) K/mcL BMP 06/30/18 03:32 Sodium 138 Potassium 3.1 L Chloride 109 H Carbon Dioxide 18 L BUN 10 Creatinine 0.77 Glucose 140 H Calcium 8.9 - ABG Interpretation ABG results: PT/INR, D-dimer PT 15.9 Seconds (9.4-12.1) H 06/26/18 20:00 - Impressions Impressions Lumbar Puncture Fluoroscopy 06/28/18 08:51 IMPRESSION: Unsuccessful lumbar puncture. D/ / Michele Gonzalez MD / Michele Gonzalez MD Interpreting Provider: Michele Gonzalez MD - VTE Documentation of Mechanical Device: Intermittent pneumatic compression device Consult Discharge Plan - Plan Referrals: Henri Montejo DO [Primary Care Provider] - <[email or web address] - Last Filed: 06/30/18 17:32> Date of Encounter: 06/30/18 - Constitutional Vitals: Temp Pulse Resp BP Pulse Ox 97.6 F 67 18 115/71 96 06/30/18 15:49 06/30/18 15:49 06/30/18 15:49 06/30/18 15:49 06/30/18 15:49 Internal Medicine: Result - Labs CBC & Chem 7: 06/30/18 03:32 06/30/18 03:32 Labs: Short CBC 06/30/18 Range/Units 03:32 WBC 10.2 (4.3-11.1) K/mcL Hgb 15.7 (12.9-16.9) g/dL Hct 43.5 (37.5-50.1) % Plt Count 144 (140-400) K/mcL Neutrophils # 4.8 (1.6-8.9) K/mcL BMP 06/30/18 03:32 Sodium 138 Potassium 3.1 L Chloride 109 H Carbon Dioxide 18 L BUN 10 Creatinine 0.77 Glucose 140 H Calcium 8.9 - ABG Interpretation ABG results: PT/INR, D-dimer PT 15.9 Seconds (9.4-12.1) H 06/26/18 20:00 - Attending Attestation I examined this patient and my medical decision-making was reviewed with the Resident Physician. I agree with the documented findings, disposition and treatment plan as described except to the extent set forth below.
[2018-06-30] MEDS ORDERED: *HR* LORazepam 2 MG/ML VIAL IVP STA (11:21)
[2018-06-30] MEDS ORDERED: *HR* LORazepam 2 MG/ML VIAL IVP PRN (11:21)
[2018-06-30] MEDS: Acetaminophen 325 MG TABLET PO PRN (11:42)
--- NOTE | 2018-06-30 13:26 | Event Note ---
<MaríaLeopoldo T - Last Filed: 06/30/18 13:17> Date of Encounter: 06/30/18 Time of Encounter: 12:30 LP was attempted but unsuccessful with pt inability to stay still. Consent for LP signed, pt was premedicated with 1 mg IV Ativan, correctly positioned pt L lateral decubitis with hips/knees flexed for flexion of lumbar spine. After mechanical and chemical prep with betadine x3 and sterile drapes placed attempted to inject local anesthetic when he moved backwards, reached behind himself and grabbed the syringe containing lidocaine. LP was aborted at this point due to risk of pt inability to stay still when spinal needle placed. <Gilbert Garcia I - Last Filed: 07/06/18 11:42> Date of Encounter: 07/06/18 I was present for LP , pt not cooperative, procedure discontinued Gilbert Garcia MD
--- NOTE | 2018-06-30 18:14 | Consult Note ---
Date of Encounter: 06/30/18 Time of Encounter: 17:45 Assessment & Recommendation (1) Delirium due to known physiological condition Current visit: Yes Status: Acute History of Present Illness Patient: new to practice Requesting Physician: Burton Le Reason for consult: AMS paranoia History of present illness: Mr. Carreon is a 43 year old male This patient has been diagnosed with seizure disorder for a long period of time and he reports that he has been dealing with seizures since 6 months old. Chief complaint I saw small helicopter and I thought I was flying. I think I am and TV. History of present illness the patient continued as having seizures and today a lumbar puncture was attempted but fluid was not collected. Nonetheless the patient has had EEGs showing Ye and wave back to temporal lobe ablation. The patient and I speculated on the cause of this but his level of confusion. The patient has been observed to have ideas of reference and thought insertion thought withdrawal. The patient is also identified little helicopters and little man suggesting lilliputian hallucinations. These are visual hallucinations and he has some insight into the. The patient was able to identify a window but saw this as a large picture suggesting an illusion. His interpretation was idiosyncratic or concrete. He was overinclusive in his answers he was perseverative in his answers and incorporated additional details. There is a slight amount of confabulation. The patient is grossly oriented but his calculation is poor. His memory is impaired his reasoning is impaired he has some insight into his illness and recognizes that he was not functioning well. Report of observation of the family suggest the patient's mental status is changed in the past week. This is most consistent with an interictal psychosis. The location and the disturbance may account for this. In some patients a more chronic pattern that resemble schizophrenia may occur. This patient's presentation is more acute. CC: Burton Le Past Med Surg Social Fam HX - Past Medical History Medical history: diabetes, hypertension - Past Psychiatric History Psychiatric history: Reports: no psych history Family psychiatric history: Unknown Family History of Suicide: Unknown - Past Surgical History Surgical History: no surgical history - Social History Smoking Status: Never smoker Alcohol use: none Drug use: none Occupational status: disabled Current living situation: Home, With Family Activity Level: Independent ambulation Recent Out of Country Travel Within the Last 8 Weeks: No Exposure or Possible Exposure to Illness During Travel: No - Family History Mother Living Status: Still Living Hx Family Neuromuscular Disorders: No Hx Family Neurologic Disorders: No Hx Family Psychosocial Disorders: Yes (ADHD) Father Living Status: Still Living Hx Family Neuromuscular Disorders: No Hx Family Neurologic Disorders: No Medications & Allergies Amitriptyline [Elavil] 50 mg PO DAILY 06/27/18 [History] Metformin HCl [Glucophage] 1,000 mg PO BID 06/27/18 [History] OXcarbazepine [Oxcarbazepine] 300 mg PO QID 06/27/18 [History] Omeprazole [PriLOSEC] 20 mg PO DAILY 06/27/18 [History] Sertraline [Zoloft] 50 mg PO DAILY 06/27/18 [History] Topiramate [Topamax] 100 mg PO BID 06/27/18 [History] 3 Allergy/AdvReac Type Severity Reaction Status Date / Time No Known Allergies Allergy Verified 06/26/18 20:04 Review of Systems Psychiatric: Reports: anxiety, visual hallucinations, difficulty concentrating Psychiatry Exam - Constitutional Vitals: Temp Pulse Resp BP Pulse Ox 97.6 F 67 18 115/71 96 06/30/18 15:49 06/30/18 15:49 06/30/18 15:49 06/30/18 15:49 06/30/18 15:49 General appearance: age & developmentally appropriate, well-nourished - Musculoskeletal Station: posturing Strength & Tone: abnormal flexion - Psychiatric Patient Orientation: Yes Person, Yes Time, Yes Place Level of alertness: Alert Behavior: calm, cooperative Psychomotor activity: Normal Eye Contact: Maintains Eye Contact Mood Description: Euthymic/stable Affect description: congruent with mood, blunted Speech Volume: Normal Speech pattern: normal rate, normal rhythm, normal tone, fluent, spontaneous Language & Vocabulary: limited Thought Process: Linear, Goal Oriented, [place] Thought Content: No Suicidal ideation, No Homicidal ideation, No Overt delusions , Yes Ideas of reference, Yes Paranoid delusion, Yes Thought broadcasting, Yes Thought insertion Perceptual Disturbances: No Auditory hallucinations, Yes Visual hallucinations, Yes Illusions Attention Span Ability: Capable of Focused Attention Memory Description: Grossly Intact Patient Reliability: Not Reliable Historian Fund of knowledge: Yes below average, Yes aware of current events Intelligence Estimate: Average Judgment: Limited Insight: Minimal Results - Labs Labs: Laboratory Last Values WBC 10.2 K/mcL (4.3-11.1) 06/30/18 03:32 RBC 4.91 M/mcL (4.19-5.50) 06/30/18 03:32 Hgb 15.7 g/dL (12.9-16.9) 06/30/18 03:32 Hct 43.5 % (37.5-50.1) 06/30/18 03:32 MCV 88.6 fL (83.0-100.0) 06/30/18 03:32 MCH 32.0 pg (28.0-33.3) 06/30/18 03:32 MCHC 36.1 g/dL (31.6-35.5) H 06/30/18 03:32 RDW 13.3 % (11.5-14.5) 06/30/18 03:32 Plt Count 144 K/mcL (140-400) 06/30/18 03:32 MPV 10.7 fL (9.4-12.4) 06/30/18 03:32 Immature Gran % 0.3 % (0-4) 06/30/18 03:32 Seg Neutrophils % 47.0 % 06/30/18 03:32 Lymphocytes % 39.0 % 06/30/18 03:32 Monocytes % 10.5 % 06/30/18 03:32 Eosinophils % 1.8 % 06/30/18 03:32 Basophils % 1.4 % 06/30/18 03:32 Neutrophils # 4.8 K/mcL (1.6-8.9) 06/30/18 03:32 Lymphocytes # 4.0 K/mcL (0.6-4.6) 06/30/18 03:32 Monocytes # 1.1 K/mcL (0.0-1.3) 06/30/18 03:32 Eosinophils # 0.2 K/mcL (0.0-0.6) 06/30/18 03:32 Basophils # 0.1 K/mcL (0.0-0.2) 06/30/18 03:32 PT 15.9 Seconds (9.4-12.1) H 06/26/18 20:00 INR 1.4 06/26/18 20:00 VBG pH 7.35 pH Units (7.32-7.42) 06/29/18 10:03 VBG pCO2 37 mmHg (41-51) L 06/29/18 10:03 VBG pO2 56 mmHg (25-50) H 06/29/18 10:03 VBG HCO3 21 mEq/L (21-27) 06/29/18 10:03 Sodium 138 mEq/L (136-145) 06/30/18 03:32 Potassium 3.1 mEq/L (3.5-5.1) L 06/30/18 03:32 Chloride 109 mEq/L (98-107) H 06/30/18 03:32 Carbon Dioxide 18 mEq/L (23-29) L 06/30/18 03:32 BUN 10 mg/dL (6-20) 06/30/18 03:32 Creatinine 0.77 mg/dL (0.70-1.30) 06/30/18 03:32 Est GFR ( Amer) > 60 (> 60) 06/30/18 03:32 Est GFR (Non-Af Amer) > 60 (> 60) 06/30/18 03:32 BUN/Creatinine Ratio 13 (6-26) 06/30/18 03:32 Glucose 140 mg/dL (70-105) H 06/30/18 03:32 POC Glucose 125 mg/dL (70-99) H 06/30/18 11:45 Calculated Osmolality 287 (280-300) 06/30/18 03:32 Calcium 8.9 mg/dL (8.6-10.3) 06/30/18 03:32 Phosphorus 3.6 mg/dL (2.7-4.5) 06/26/18 20:00 Magnesium 1.9 mg/dL (1.6-2.6) 06/26/18 20:00 Total Bilirubin 1.3 mg/dL (0.3-1.0) H 06/26/18 20:00 AST 15 Units/L (13-39) 06/26/18 20:00 ALT 11 Units/L (7-52) 06/26/18 20:00 Alkaline Phosphatase 77 Units/L (34-104) 06/26/18 20:00 Ammonia 70 mcmol/L (16-53) H 06/29/18 05:12 Troponin I 0.03 ng/mL (< 0.04) 06/26/18 20:00 Serum Total Protein 8.1 g/dL (6.4-8.9) 06/26/18 20:00 Albumin 4.0 g/dL (3.5-5.7) 06/26/18 20:00 Globulin 4.1 g/dL (2.4-3.5) H 06/26/18 20:00 Albumin/Globulin Ratio 1.0 (1.1-2.2) L 06/26/18 20:00 Triglycerides 60 mg/dL (< 150) 06/30/18 03:32 Cholesterol 121 mg/dL (< 200) 06/30/18 03:32 LDL Cholesterol, Calc 71 mg/dL (0-99) 06/30/18 03:32 VLDL Cholesterol, Calc 12 mg/dL (< 31) 06/30/18 03:32 HDL Cholesterol 38 mg/dL (40-59) L 06/30/18 03:32 Cholesterol/HDL Ratio 3.2 (0-4.9) 06/30/18 03:32 Lipase 39 Units/L (11-82) 06/27/18 03:15 Vitamin B12 138 pg/mL (250-1100) L 06/29/18 09:30 Folate 13.4 ng/mL (3.0-16.0) 06/29/18 09:30 TSH 0.258 mcIU/mL (0.340-5.600) L 06/29/18 09:30 Free T4 0.75 ng/dl (0.70-2.00) 06/30/18 03:32 Free T3 3.23 pg/mL (2.50-3.90) 06/30/18 03:32 Urine Color Yellow (Yellow) 06/26/18 20:25 Urine Clarity Clear (Clear) 06/26/18 20:25 Urine pH 6.5 pH Units (5.0-8.0) 06/26/18 20:25 Ur Specific [place] 1.010 (1.010-1.025) 06/26/18 20:25 Urine Protein Negative mg/dL (Neg-Trace) 06/26/18 20:25 Urine Glucose (UA) Normal mg/dL (Normal) 06/26/18 20:25 Urine Ketones Negative mg/dL (Negative) 06/26/18 20:25 Urine Blood Negative (Negative) 06/26/18 20:25 Urine Nitrite Negative (Negative) 06/26/18 20:25 Urine Bilirubin Negative (Negative) 06/26/18 20:25 Urine Urobilinogen 4.0 mg/dL (Normal) H 06/26/18 20:25 Ur Leukocyte Esterase Negative (Negative) 06/26/18 20:25 Salicylates < 2.5 mg/dL (15.0-30.0) L 06/29/18 09:30 Urine Opiates Screen Negative ng/mL (Sghqbz=652) 06/26/18 20:25 Acetaminophen < 10 mcg/mL (10-20) L 06/29/18 09:30 Ur Barbiturates Screen Negative ng/mL (Eiqbfg=878) 06/26/18 20:25 Phenytoin 1.9 mcg/mL (10.0-20.0) L 06/29/18 09:30 Valproic Acid < 4 mcg/mL (50-100) L 06/26/18 20:00 Carbamazepine < 1 mcg/mL (4-12) L 06/26/18 20:00 Ur Phencyclidine Scrn Negative ng/mL (Cutoff=25) 06/26/18 20:25 Ur Amphetamines Screen Negative ng/mL (Gzhhil=3992) 06/26/18 20:25 U Benzodiazepines Scrn Negative ng/mL (Xrewci=352) 06/26/18 20:25 Urine Cocaine Screen Negative ng/mL (Cutoff= 300) 06/26/18 20:25 U Marijuana (THC) Screen Negative ng/mL (Cutoff = 50) 06/26/18 20:25 Ur Drug Screen Interp See Below 06/26/18 20:25 Ethyl Alcohol < 10 mg/dL (Less than 10) 06/26/18 20:00 Hepatitis A IgM Ab Nonreactive (Nonreactive) 06/27/18 03:15 Hep Bs Antigen Nonreactive (Nonreactive) 06/27/18 03:15 Hep B Core IgM Ab Nonreactive (Nonreactive) 06/27/18 03:15 Hepatitis C Ab Screen Nonreactive (Nonreactive) 06/27/18 03:15 Consult Discharge Plan - Plan Referrals: Henri Montejo DO [Primary Care Provider] -
[2018-07-01] MEDS: Insulin LISPRO 300 UNITS/3 ML VIAL SQ SCH ×4 (00:54→18:14)
[2018-07-01 01:46] LABS: Basophils # 0.1 K/mcL (0.0-0.2); Basophils % 1.6 %; Eosinophils # 0.2 K/mcL (0.0-0.6); Eosinophils % 2.3 %; Hemoglobin 14.7 g/dL (12.9-16.9); Immature Granulocytes % 0.1 % (0-4); Lymphocytes # 2.9 K/mcL (0.6-4.6); Lymphocytes % 39.9 %; Mean Corpuscular HGB Conc 35.9 g/dL (31.6-35.5); Mean Corpuscular Hemoglobin 31.7 pg (28.0-33.3); Mean Corpuscular Volume 88.6 fL (83.0-100.0); Mean Platelet Volume 10.6 fL (9.4-12.4); Monocytes # 0.8 K/mcL (0.0-1.3); Monocytes % 10.4 %; Neutrophils # 3.3 K/mcL (1.6-8.9); Platelet Count 136 K/mcL (140-400); Red Blood Count 4.63 M/mcL (4.19-5.50); Red Cell Distribution Width 13.2 % (11.5-14.5); Segmented Neutrophils % 45.7 %
[2018-07-01 02:12] LABS: BUN/Creatinine Ratio 13 (6-26); Blood Urea Nitrogen 9 mg/dL (6-20); Calcium 8.7 mg/dL (8.6-10.3); Carbon Dioxide 18 mEq/L (23-29); Chloride 111 mEq/L (98-107); Glucose 125 mg/dL (70-105); Osmolality,Calculated 288 (280-300); Potassium 3.3 mEq/L (3.5-5.1); Sodium 139 mEq/L (136-145); eGFR For Non-African Americans > 60 (> 60)
[2018-07-01] MEDS: *HR* Enoxaparin 40 MG/0.4 ML SYRINGE SQ SCH (07:41)
--- NOTE | 2018-07-01 09:25 | Internal Med Progress Note ---
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 Patient admitted at [facility] [place] 3 days ago for similar symptoms. Patient was discharged home without abortive medication after overnight observation. 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 Diabetes mellitus complication status: without complication Qualified Code(s): E11.9 - Type 2 diabetes mellitus without complications (4) HTN (hypertension) Current Visit: Yes Status: Chronic Assessment and plan: Hydralazine prn SBP >170 / DBP >100 Continue monitoring Qualifiers: Hypertension type: essential hypertension Qualified Code(s): I10 - Essential (primary) hypertension (5) Hypokalemia Current Visit: Yes Status: Acute Assessment and plan: Potassium 3.3 today after 2 doses of 40 juan Potassium chloride yesterday 40meq IV over 4 hours ordered (6) DVT prophylaxis Current Visit: Yes Status: Acute Assessment and plan: Pt refused EPCDs - Subjective Interval history: No acute events overnight. The patient's mentation seemed to be improving from yesterday, however, he is still altered. He was A&Ox3 and was able to answer the questions more quickly, but he did stop to look at the TV remote and say "foss, they can still hear us". States he knows he has been confused but it is improving. He thinks it has something to do with his seizure medication. - Constitutional Vitals: Temp Pulse Resp BP Pulse Ox 98.3 F 71 18 134/83 95 07/01/18 07:30 07/01/18 07:30 07/01/18 07:30 07/01/18 07:30 07/01/18 07:30 General appearance: Present: A&O X 3, no acute distress. Absent: answers questions appropriately - Eye Eye exam: Present: EOMI, PERRL - Respiratory Respiratory exam: Present: CTAB. Absent: respiratory distress, rhonchi, stridor , wheezes - Cardiovascular Cardiovascular exam: Present: RRR, +S1, +S2. Absent: +S3, +S4 - GI/Abdominal GI/Abdominal exam: Present: normal bowel sounds, soft - Neurological Exam Neurological exam: Present: altered, CN II-XII intact, oriented X3. Absent: no focal deficits, pronater drift, facial droop, speech deficit - Psychiatric Psychiatric exam: Present: flat affect. Absent: agitated Additional comments: Improving but still inappropriate. says he speaks with people or hears people who are not there. Internal Medicine: Result - Labs CBC & Chem 7: 07/01/18 01:24 07/01/18 01:24 Labs: Short CBC 07/01/18 Range/Units 01:24 WBC 7.3 (4.3-11.1) K/mcL Hgb 14.7 (12.9-16.9) g/dL Hct 41.0 (37.5-50.1) % Plt Count 136 L (140-400) K/mcL Neutrophils # 3.3 (1.6-8.9) K/mcL BMP 07/01/18 01:24 Sodium 139 Potassium 3.3 L Chloride 111 H Carbon Dioxide 18 L BUN 9 Creatinine 0.71 Glucose 125 H Calcium 8.7 - ABG Interpretation Interpretation: ABG interpreted by me ABG results: PT/INR, D-dimer PT 15.9 Seconds (9.4-12.1) H 06/26/18 20:00 - VTE Documentation of Mechanical Device: Intermittent pneumatic compression device Consult Discharge Plan - Plan Referrals: Henri Montejo DO [Primary Care Provider] - <Janis Chaparro - Last Filed: 07/01/18 19:33> Date of Encounter: 07/01/18 - Constitutional Vitals: Temp Pulse Resp BP Pulse Ox 98.5 F 98 16 123/71 97 07/01/18 19:24 07/01/18 19:24 07/01/18 19:24 07/01/18 19:24 07/01/18 19:24 Internal Medicine: Result - Labs CBC & Chem 7: 07/01/18 01:24 07/01/18 01:24 - ABG Interpretation ABG results: PT/INR, D-dimer PT 15.9 Seconds (9.4-12.1) H 06/26/18 20:00 - Attending Attestation I examined this patient and my medical decision-making was reviewed with the Resident Physician. I agree with the documented findings, disposition and treatment plan as described except to the extent set forth below.
[2018-07-01] MEDS: Cyanocobalamin (B-12) 1,000 MCG TABLET PO SCH (10:53)
[2018-07-01] MEDS: Topiramate 100 MG TABLET PO SCH ×2 (10:53→20:41)
[2018-07-01] MEDS: Aspirin Enteric Coated 81 MG Tablet PO SCH (10:54)
[2018-07-01] MEDS: Lactulose Oral Soln 20 GM/30 ML UDC PO SCH ×2 (10:54→20:40)
[2018-07-01] MEDS: OXcarbazepine 150 MG TABLET PO SCH ×3 (10:54→20:41)
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
[2018-07-01] MEDS ORDERED: 0.9 % Sodium Chloride 500 ML ONE (12:58)
[2018-07-01] MEDS ORDERED: *HR* LORazepam 2 MG/ML VIAL IVP PRN (15:01)
[2018-07-02] MEDS ORDERED: Haloperidol Lactate 5 MG/ML VIAL IVP ONE (00:29)
[2018-07-02] MEDS: Insulin LISPRO 300 UNITS/3 ML VIAL SQ SCH ×4 (00:32→16:53)
[2018-07-02] MEDS ORDERED: Haloperidol Lactate 5 MG/ML VIAL ONE (00:35)
[2018-07-02 06:41] LABS: Basophils # 0.1 K/mcL (0.0-0.2); Basophils % 1.5 %; Eosinophils # 0.2 K/mcL (0.0-0.6); Eosinophils % 3.2 %; Hematocrit 37.7 % (37.5-50.1); Hemoglobin 13.4 g/dL (12.9-16.9); Immature Granulocytes % 0.2 % (0-4); Lymphocytes # 3.2 K/mcL (0.6-4.6); Lymphocytes % 48.2 %; Mean Corpuscular HGB Conc 35.5 g/dL (31.6-35.5); Mean Corpuscular Hemoglobin 31.2 pg (28.0-33.3); Mean Corpuscular Volume 87.7 fL (83.0-100.0); Mean Platelet Volume 11.1 fL (9.4-12.4); Monocytes # 0.7 K/mcL (0.0-1.3); Monocytes % 10.7 %; Neutrophils # 2.4 K/mcL (1.6-8.9); Platelet Count 152 K/mcL (140-400); Red Cell Distribution Width 13.2 % (11.5-14.5); Segmented Neutrophils % 36.2 %
[2018-07-02 07:03] LABS: BUN/Creatinine Ratio 10 (6-26); Blood Urea Nitrogen 7 mg/dL (6-20); Calcium 8.4 mg/dL (8.6-10.3); Carbon Dioxide 19 mEq/L (23-29); Chloride 110 mEq/L (98-107); Glucose 115 mg/dL (70-105); Osmolality,Calculated 285 (280-300); Potassium 3.2 mEq/L (3.5-5.1); Sodium 138 mEq/L (136-145); eGFR For Non-African Americans > 60 (> 60)
[2018-07-02] MEDS: Aspirin Enteric Coated 81 MG Tablet PO SCH (09:11)
[2018-07-02] MEDS: Lactulose Oral Soln 20 GM/30 ML UDC PO SCH ×2 (09:11→22:53)
[2018-07-02] MEDS: Cyanocobalamin (B-12) 1,000 MCG TABLET PO SCH (09:11)
[2018-07-02] MEDS: *HR* Enoxaparin 40 MG/0.4 ML SYRINGE SQ SCH (09:11)
[2018-07-02] MEDS: Topiramate 100 MG TABLET PO SCH ×2 (09:11→22:53)
[2018-07-02] MEDS: OXcarbazepine 150 MG TABLET PO SCH ×2 (09:11→22:53)
--- NOTE | 2018-07-02 10:59 | Internal Med Progress Note ---
Hospitalist Progress Note - Encounter Date of Encounter: 07/02/18 Time of Encounter: 10:55 - Subjective Interval History: No acute events. and family at bedside. Patient has no complaints. He is slightly confused this morning. - Exam Vitals: Temp Pulse Resp BP Pulse Ox 97.8 F 76 16 116/78 96 07/02/18 06:45 07/02/18 06:45 07/02/18 04:45 07/02/18 06:45 07/02/18 04:45 Exam: GEN: NAD, AAOx3 CVS: RRR Lungs: CTAB ABD: sot, NT/ND Ext: no edema, no cyanosis Neuro: no focal deficits Psych: blunted affect, confused of current hospital situation. - Assessment and Plan (1) Acute encephalopathy Current Visit: Yes Status: Acute Assessment and Plan: Possibly interictal psychosis, based on Psychiatry eval. Remainder of workup was negative. LP was unable to be done due to compliance Seems to be improving but he is still confused. Psychiatry evaluated patient on 06/30 and addendum as well on 07/01. Recommend continuing Haldol on discharge. - Contiue Haldol as inpatient with close monitoring. He appears to be unsafe to go home at this time, he is still requiring a sitter. (2) Seizure disorder Current Visit: Yes Status: Chronic Assessment and Plan: On 06/16/17 his 48 hour ambulatory EEG captured intermittent epileptiform discharged at the right anterior temporal region. 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 Please correlate clinically. Patient admitted at [facility] 3 days prior to admission for similar symptoms. Continue seizure precautions Continue oxycarbazepine, Topamax. Ativan as prn seizures. Neurology Following (3) DM type 2 (diabetes mellitus, type 2) Current Visit: No Status: Chronic Assessment and Plan: HGB a1c level 5.9 on 01/04/18 Continue accuchecks and low dose SSI (4) HTN (hypertension) Current Visit: Yes Status: Chronic Assessment and Plan: Hydralazine prn SBP >170 / DBP >100 (5) DVT prophylaxis Current Visit: Yes Status: Acute Assessment and Plan: EPCDs (6) Hypokalemia Current Visit: Yes Status: Acute - Time Spent with Patient Total time spent is greater than 50% in coordination of care (as documented) at patient's floor/unit and/or counseling patient: Internal Medicine: Result - Labs CBC & Chem 7: 07/02/18 06:12 07/02/18 06:12 Labs: Short CBC 07/02/18 Range/Units 06:12 WBC 6.6 (4.3-11.1) K/mcL Hgb 13.4 (12.9-16.9) g/dL Hct 37.7 (37.5-50.1) % Plt Count 152 (140-400) K/mcL Neutrophils # 2.4 (1.6-8.9) K/mcL BMP 07/02/18 06:12 Sodium 138 Potassium 3.2 L Chloride 110 H Carbon Dioxide 19 L BUN 7 Creatinine 0.69 L Glucose 115 H Calcium 8.4 L - ABG Interpretation ABG results: PT/INR, D-dimer PT 15.9 Seconds (9.4-12.1) H 06/26/18 20:00 - VTE Documentation of Mechanical Device: Intermittent pneumatic compression device Consult Discharge Plan - Plan Referrals: Henri Montejo DO [Primary Care Provider] - (3) DM type 2 (diabetes mellitus, type 2) 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
[2018-07-03] MEDS: Insulin LISPRO 300 UNITS/3 ML VIAL SQ SCH ×4 (01:26→19:01)
[2018-07-03 04:56] LABS: BUN/Creatinine Ratio 7 (6-26); Blood Urea Nitrogen 5 mg/dL (6-20); Carbon Dioxide 24 mEq/L (23-29); Chloride 107 mEq/L (98-107); Glucose 146 mg/dL (70-105); Osmolality,Calculated 286 (280-300); Potassium 3.7 mEq/L (3.5-5.1); Sodium 138 mEq/L (136-145); eGFR For Non-African Americans > 60 (> 60)
[2018-07-03] MEDS: *HR* Enoxaparin 40 MG/0.4 ML SYRINGE SQ SCH (05:55)
[2018-07-03] MEDS: OXcarbazepine 150 MG TABLET PO SCH ×2 (09:23→19:06)
[2018-07-03] MEDS: Cyanocobalamin (B-12) 1,000 MCG TABLET PO SCH (09:24)
[2018-07-03] MEDS: Aspirin Enteric Coated 81 MG Tablet PO SCH (09:24)
[2018-07-03] MEDS: Topiramate 100 MG TABLET PO SCH (09:24)
[2018-07-03] MEDS: Lactulose Oral Soln 20 GM/30 ML UDC PO SCH (09:26)
--- NOTE | 2018-07-03 09:26 | Internal Med Progress Note ---
Hospitalist Progress Note - Encounter Date of Encounter: 07/03/18 Time of Encounter: 09:23 - Subjective Interval History: No acute events. and family at bedside. Patient has no complaints. reported to overnight nurse patient might need placement. No family at bedside during my assessment. He has no complaints. He is AAOx3. He does not appear to have any delusions or hallucinations at this point. He denies any history of abuse, PTSD that he knows of. Confused thoughts are less profound this AM compared to last several days, but he is still confused however. - Exam Vitals: Temp Pulse Resp BP Pulse Ox 98.8 F 76 14 145/95 94 07/03/18 06:20 07/03/18 06:20 07/03/18 06:20 07/03/18 06:20 07/03/18 06:20 Exam: Gen: NAD, AAOx3, slight confusion of situation CVS: RRR Lungs: CTAB Abd: NT/ND Ext: no edema Psych: AAOx3, affect no longer flat. confused of recent hospitalization but he is aware of his seizure issue causing hospitalization. No hallucinations or delusions. Normal Mood. No agitation. - Assessment and Plan (1) Acute encephalopathy Current Visit: Yes Status: Acute Assessment and Plan: Possibly interictal psychosis, based on Psychiatry evaluation on 06/30-07/01. Remainder of workup was negative. LP was unable to be done due to compliance, though suspicion for meningitis is low at this point. - MRI negative for acute process but does show a prior CVA. - Mental status improving, he has remained AAOx3, confusion is better but still present. - He still requires a sitter, making it questionable if he is safe for discharge. Disposition: - SW for resources if patient needs more [facility] services than what he has at home. The other situation is if the patient needs placed due to current mental capacity might make him unsafe at home. - He will need outpatient GI referral for hyperammonemia. Will need Lactulose on discharge. - He will need Psychiatry appointment follow-up. He will need Psychiatry appointment set on discharge. He will need Haldol rx for 1-6 months per Psychiatry recommendations. (2) Seizure disorder Current Visit: Yes Status: Chronic Assessment and Plan: On 06/16/17 his 48 hour ambulatory EEG captured intermittent epileptiform discharged at the right anterior temporal region. 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 Patient admitted at [facility] 3 days prior to admission for similar symptoms. Continue seizure precautions Continue oxycarbazepine, Topamax. Ativan as prn seizures. Neurology Following (3) DM type 2 (diabetes mellitus, type 2) Current Visit: No Status: Chronic Assessment and Plan: HGB a1c level 5.9 on 01/04/18 Continue accuchecks and low dose SSI (4) HTN (hypertension) Current Visit: Yes Status: Chronic Assessment and Plan: Hydralazine prn SBP >170 / DBP >100 (5) DVT prophylaxis Current Visit: Yes Status: Acute Assessment and Plan: EPCDs (6) Hypokalemia Current Visit: Yes Status: Acute - Time Spent with Patient Total time spent is greater than 50% in coordination of care (as documented) at patient's floor/unit and/or counseling patient: Internal Medicine: Result - Labs CBC & Chem 7: 07/02/18 06:12 07/03/18 04:08 Labs: BMP 07/03/18 04:08 Sodium 138 Potassium 3.7 Chloride 107 Carbon Dioxide 24 BUN 5 L Creatinine 0.70 Glucose 146 H Calcium 9.0 - ABG Interpretation ABG results: PT/INR, D-dimer PT 15.9 Seconds (9.4-12.1) H 06/26/18 20:00 - VTE Documentation of Mechanical Device: Intermittent pneumatic compression device Consult Discharge Plan - Plan Referrals: Henri Montejo DO [Primary Care Provider] - (3) DM type 2 (diabetes mellitus, type 2) 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
--- NOTE | 2018-07-03 15:01 | Discharge Summary ---
- NOTES TO OUTPATIENT PROVIDER Notes to Outpatient Provider: - Need follow-up with Psychiatry for Haldol and possible Psychiatric issues, vs itraictal psychosis. - Need GI follow-up for hyperammonemia. Sent home on Lactulose. - Follow-up B12 level in 4 weeks. Orders not resulted at time of discharge: Pending orders 07/02/18 06:12 Oxcarbazepine Routine Date of Encounter: 07/03/18 Time of Encounter: 14:54 - Discharge Diagnosis (1) Acute encephalopathy Priority: Primary Status: Acute (2) Seizure disorder Priority: Secondary Status: Chronic (3) DM type 2 (diabetes mellitus, type 2) Priority: Secondary Status: Chronic Qualifiers: Diabetes mellitus group home insulin use: without group home use Diabetes mellitus complication status: without complication Qualified Code(s): E11.9 - Type 2 diabetes mellitus without complications (4) HTN (hypertension) Priority: Secondary Status: Chronic Qualifiers: Hypertension type: essential hypertension Qualified Code(s): I10 - Essential (primary) hypertension (5) DVT prophylaxis Priority: Secondary Status: Acute (6) Hypokalemia Priority: Secondary Status: Acute Hospital course: Mr. Carreon is a 43 year old male with a PMH of DM type 2, HTN, and Seizure disorder who presented form home due to recurrent seizure activity. Of note, patient was admitted at [facility] 3 days ago for similar symptoms. Patient was discharged home without abortive medication after overnight observation. He presented to the [facility] ED because family reports he had two more witnessed generalized convulsive seizures with postictal periods. Patient is very confused on exam and unable to provide adequate history of present illness. The patient has been seeing things and hearing things for the past 24 hours that other people don't see or hear according to his family. This is an acute change from his baseline mental status. Patient reports that he has been taking all of his seizure medications as prescribed.He had no history of fever, chills, head or neck trauma, tongue trauma, CP, SOB, abd pain, N/V/D, constipation, urinary incontinence, dysuria, leg edema, or extremity injuries. His ammonia level was found to be elevated at 130. A CT of head showed no acute abnormalities. Ammonia level was corrected but patient still had confusion and encephalopathy. Neurology was consulted. An MRI of brain showed an old infarct but no acute process. Suspicion for meningitis was low, but an LP was attempted but could not be performed due to patient compliance with procedure and attempting to grab LP needle. TWo EEGs were done and fairly unremarkable, no signs of encephalopathy. Psychiatry was consulted since workup was unremarkable. 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 He was started on low dose Haldol. Patient confusion was still present but was better. He was AAOx3 and aware of situation but occasionally had delusions with confused thinking. His stated that patient is near his baseline mental status. She does, however, deny that he has any past psychiatric illness. They do not want to look into placement facility for patient and both patient and family feel safe for him to go home. Neurology has no further workup needed. Psychiatry to give recommendation if he is safe to be discharged home. - Continuing Lactulose on discharge - B12 low being replaced - Psychiatry notes that he will likely need 1-6 months of Haldol treatment. - Should get a GI follow-up for ammonia - Should get Psych appointment follow-up - Time Spent with Patient Total time spent providing and/or coordinating discharge services: - Discharge Medications Prescriptions: Aspirin Enteric Coated [Aspirin EC] 81 mg PO DAILY #30 tablet. Cyanocobalamin (B-12) [Vitamin B12] 1,000 mcg PO DAILY #30 tablet Home Medications: Amitriptyline [Elavil] 50 mg PO DAILY 06/27/18 [History] Metformin HCl [Glucophage] 1,000 mg PO BID 06/27/18 [History] OXcarbazepine [Oxcarbazepine] 600 mg PO QID 06/27/18 [History] Omeprazole [PriLOSEC] 20 mg PO DAILY 06/27/18 [History] Sertraline [Zoloft] 50 mg PO DAILY 06/27/18 [History] Topiramate [Topamax] 150 mg PO BID 06/27/18 [History] Aspirin Enteric Coated [Aspirin EC] 81 mg PO DAILY #30 tablet. 07/03/18 [Rx] Atorvastatin [Lipitor] 40 mg PO HS #30 tablet 07/03/18 [Rx] Cyanocobalamin (B-12) [Vitamin B12] 1,000 mcg PO DAILY #30 tablet 07/03/18 [Rx] Haloperidol [Haldol] 0.5 tab PO BID #30 tablet 07/03/18 [Rx] Lactulose 45 ml PO BID #2700 mls 07/03/18 [Rx] Allergies/Adverse Reactions: 3 Allergy/AdvReac Type Severity Reaction Status Date / Time No Known Allergies Allergy Verified 06/26/18 20:04 Date of admission: 07/01/18 15:22 Primary care physician: Henri Montejo DO Consults: 07/03/18 09:32 Consult to Slice Cutting Machine Operator [CONS] Routine Reason for SW Consult: Dispo: Placement vs [facility] Discharging clinician: Janis Chaparro - Constitutional Vitals: Temp Pulse Resp BP Pulse Ox 98.8 F 78 14 137/81 98 07/03/18 13:33 07/03/18 13:33 07/03/18 13:33 07/03/18 13:33 07/03/18 13:33 General appearance: Present: A&O X 3, no acute distress. Absent: answers questions appropriately - Head Head exam: Present: atraumatic, normocephalic - Eye Eye exam: Present: PERRL, conjuntiva pink, sclera anicteric Pupils: Present: PERRL - Neck Neck exam general surgery: Present: supple, trachea midline. Absent: lymphadenopathy - Respiratory Respiratory exam: Present: CTAB. Absent: accessory muscle use, rales, rhonchi, wheezes - Cardiovascular Cardiovascular exam: Present: RRR, +S1, +S2. Absent: diastolic murmur, gallop, rubs, systolic murmur - GI/Abdominal GI/Abdominal exam: Present: normal bowel sounds, soft, no peritoneal signs. Absent: distended, tenderness - Extremities Exam Extremities exam: Present: warm, radial pulses palpable and symmetrical. Absent : calf tenderness, cyanotic, pedal edema - Neurological Exam Neurological exam: Present: CN II-XII intact, oriented X3, no focal deficits. Absent: pronater drift, facial droop, speech deficit - Psychiatric Psychiatric exam: Present: normal affect, normal mood. Absent: agitated, anxious, depressed, flat affect Additional comments: occasional delusional thought process but otherwise cognitive function is normal. - Skin Skin exam: Present: dry, intact - Patient Status Disposition: Home, Self-Care Condition: Fair Functional capacity at discharge: independent ambulation Overall status at discharge: patient is progressing back to baseline - Discharge Instructions Follow Up With: Henri Montejo DO [Primary Care Provider] - - Diet and Activity Activity: increase activity as tolerated Diet: diabetic diet - VTE Documentation of Mechanical Device: Intermittent pneumatic compression device
--- NOTE | 2018-07-03 16:23 | Physician Discharge Referral ---
Home Health/Hosp Referral Info Transfer to: Home Health Provider in Charge Post Discharge: PCP (Psychiatry GI) - Diagnosis (1) Acute encephalopathy Priority: Primary Status: Acute (2) Seizure disorder Priority: Secondary Status: Chronic (3) DM type 2 (diabetes mellitus, type 2) Priority: Secondary Status: Chronic (4) HTN (hypertension) Priority: Secondary Status: Chronic (5) DVT prophylaxis Priority: Secondary Status: Acute (6) Hypokalemia Priority: Secondary Status: Acute - Respiratory Orders Smoking Cessation: Smoking cessation has been advised. For more information, call the [place] Tobacco Quit Line at 7-015-RFNB-NOW. - Diet/Nutrition Diet/Nutrition Orders: No Added Salt (CARYN), No Concentrated Sweets - Activity Activity Orders: Up ad drew - Services Needed Following services are medically necessary services: Nursing, Home Health Aide, Physical Therapy, Occupational Therapy, Med Social Work - Transfer Medications Prescriptions: Aspirin Enteric Coated [Aspirin EC] 81 mg PO DAILY #30 tablet. Atorvastatin [Lipitor] 40 mg PO HS #30 tablet Cyanocobalamin (B-12) [Vitamin B12] 1,000 mcg PO DAILY #30 tablet Haloperidol [Haldol] 0.5 tab PO BID #30 tablet Lactulose 45 ml PO BID #2700 mls Home Medications: Amitriptyline [Elavil] 50 mg PO DAILY 06/27/18 [History] Metformin HCl [Glucophage] 1,000 mg PO BID 06/27/18 [History] OXcarbazepine [Oxcarbazepine] 600 mg PO QID 06/27/18 [History] Omeprazole [PriLOSEC] 20 mg PO DAILY 06/27/18 [History] Sertraline [Zoloft] 50 mg PO DAILY 06/27/18 [History] Topiramate [Topamax] 150 mg PO BID 06/27/18 [History] Aspirin Enteric Coated [Aspirin EC] 81 mg PO DAILY #30 tablet. 07/03/18 [Rx] Atorvastatin [Lipitor] 40 mg PO HS #30 tablet 07/03/18 [Rx] Cyanocobalamin (B-12) [Vitamin B12] 1,000 mcg PO DAILY #30 tablet 07/03/18 [Rx] Haloperidol [Haldol] 0.5 tab PO BID #30 tablet 07/03/18 [Rx] Lactulose 45 ml PO BID #2700 mls 07/03/18 [Rx] Allergies/Adverse Reactions: 3 Allergy/AdvReac Type Severity Reaction Status Date / Time No Known Allergies Allergy Verified 06/26/18 20:04 Certification: Further, I certify that my clinical findings support that this patient is homebound (i.e. absences from home require considerable and taxing effort and are for medical reasons or voodoo services or infrequently or short duration when for other reasons) because: Homebound Reason: Altered mental status requiring supervision when leaving home Attestation: My signature below is to certify that this patient is under my care and that I, or nurse practitioner, or a physician's community relations assistant working with me, has a face-to -face encounter with this patient.
[2018-07-03 16:43] VITALS: BP 118/83
== END 2018-07-03 19:17 | disposition home or self-care (01) | DRG 53 ==
LOC: EMEROO 19:16 → 2NENU 19:16
PROVIDERS: ADMIT Family Medicine; ATTEND Family Medicine

== ENCOUNTER 2018-10-28 14:08 | Inpatient (IN) ==
[2018-10-28 15:12] LABS: Basophils # 0.1 K/mcL (0.0-0.2); Basophils % 1.4 %; Eosinophils # 0.2 K/mcL (0.0-0.6); Eosinophils % 1.6 %; Hematocrit 45.1 % (37.5-50.1); Hemoglobin 15.8 g/dL (12.9-16.9); Immature Granulocytes % 0.1 % (0-4); Lymphocytes # 3.6 K/mcL (0.6-4.6); Lymphocytes % 37.4 %; Mean Corpuscular Hemoglobin 30.6 pg (28.0-33.3); Mean Corpuscular Volume 87.4 fL (83.0-100.0); Mean Platelet Volume 10.7 fL (9.4-12.4); Monocytes # 0.9 K/mcL (0.0-1.3); Monocytes % 9.1 %; Neutrophils # 4.8 K/mcL (1.6-8.9); Platelet Count 138 K/mcL (140-400); Red Blood Count 5.16 M/mcL (4.19-5.50); Red Cell Distribution Width 14.1 % (11.5-14.5); Segmented Neutrophils % 50.4 %
--- NOTE | 2018-10-28 15:16 | Emergency Department Note ---
Disposition Clinical Impression: Acute metabolic encephalopathy, History of CVA (cerebrovascular accident), Hyperammonemia Disposition: Admitted As Inpatient Condition: Good Referrals: NONE,PCP [Primary Care Provider] - Forms: ED Satisfaction Letter General Adult HPI - General Chief complaint: ED Seizure Stated complaint: seizures Time Seen by Provider: 10/28/18 14:31 Source: family Mode of arrival: ambulatory Limitations: altered mental status Nursing Notes Reviewed: Yes Vital Signs Reviewed: Yes - History of Present Illness HPI Narrative: 43yo male presents from home with his due to altered mental status after seizures on Wednesday. His states he had 3 seizures on Wednesday, at 1000, 1300, and 2000. During one of these episodes he fell and hit his head on a glass table. He has been acting confused since then. He sees Dr. Vasquez for neurology but has not seen him since June when he was in the hospital. His thinks he takes Topimax for his seizures and he has not missed any doses. She denies fevers or recent illness at home for the patient. He had not complained of anything prior to the seizures. His describes the seizures as him staring off into space, and sometimes he collapses and convulses with them. Pain Scale: 0 - Related Data Home Medications Medication Instructions Recorded Confirmed Amitriptyline [Elavil] 50 mg PO DAILY 06/27/18 06/27/18 Metformin HCl [Glucophage] 1,000 mg PO BID 06/27/18 06/27/18 OXcarbazepine [Oxcarbazepine] 600 mg PO QID 06/27/18 07/01/18 Omeprazole [PriLOSEC] 20 mg PO DAILY 06/27/18 06/27/18 Sertraline [Zoloft] 50 mg PO DAILY 06/27/18 06/27/18 Topiramate [Topamax] 150 mg PO BID 06/27/18 07/01/18 Previous Rx's Medication Instructions Recorded Aspirin Enteric Coated [Aspirin EC] 81 mg PO DAILY #30 tablet. 07/03/18 Atorvastatin [Lipitor] 40 mg PO HS #30 tablet 07/03/18 Cyanocobalamin (B-12) [Vitamin B12] 1,000 mcg PO DAILY #30 tablet 07/03/18 Haloperidol [Haldol] 0.5 tab PO BID #30 tablet 07/03/18 Lactulose 45 ml PO BID #2700 mls 07/03/18 Allergies Allergy/AdvReac Type Severity Reaction Status Date / Time No Known Allergies Allergy Verified 10/28/18 14:19 Constitutional: Denies: fever, chills, weakness Eyes: Denies: vision change Cardiovascular: Denies: chest pain Respiratory: Denies: cough, dyspnea, wheezes Gastrointestinal: Denies: abdominal pain, nausea, vomiting, diarrhea Musculoskeletal: Denies: back pain, neck pain Integumentary: Denies: rash Psychiatric: Denies: anxiety Endocrine: Denies: fatigue Hematological/Lymphatic: Denies: easy bleeding Past Medical History - Past Medical History Medical history: Reports: diabetes, hypertension, seizures Surgical history: Reports: no surgical history Psychiatric history: Reports: no psych history - Social History Smoking Status: Never smoker Smokeless Tobacco Status: No Alcohol use: Reports: none Drug use: Reports: none Physical Exam - General Limitations: altered mental status General appearance: alert, in no apparent distress - Head Head exam: other (scrape on left side of face) - Eye Eye exam: Present: normal appearance, PERRL, EOMI - ENT ENT exam: normal exam, normal oropharynx - Neck Neck exam: Present: normal inspection. Absent: tenderness, meningismus, lymphadenopathy - Chest Chest inspection: Present: tenderness, other (bruising on left side of chest) - Respiratory Respiratory exam: Present: normal lung sounds bilaterally. Absent: wheezes - Cardiovascular Cardiovascular exam: Present: regular rate, normal rhythm - Abdominal Exam Abdominal exam: Present: soft, tenderness Abdominal tenderness: Present: epigastrium - Neurological Exam Neurological exam: Present: alert, other (confused, answers some yes no questions but cannot state his name or where he is) - Psychiatric Psychiatric exam: Present: normal affect - Skin Skin exam: Present: warm, dry, intact Course - Reevaluation(s) Reevaluation #1: Patient with elevated lactate. No infectious symptoms at this time. Will temperature heart rate and blood pressure. Blood cultures were drawn and sent. Patient with elevated ammonia. Lactulose given. 2 L of fluids given. Patient will require admission for metabolic encephalopathy. Vital Signs Temperature 98.6 F 10/28/18 14:20 Pulse Rate 74 10/28/18 14:20 Respiratory Rate 20 10/28/18 14:20 Blood Pressure 125/89 10/28/18 14:20 O2 Sat by Pulse Oximetry 97 10/28/18 14:20 Temperature 98.6 F 10/28/18 14:49 Pulse Rate 84 10/28/18 17:55 Respiratory Rate 16 10/28/18 17:55 Blood Pressure 124/62 10/28/18 17:55 O2 Sat by Pulse Oximetry 98 10/28/18 17:55 Oxygen Delivery Oxygen Delivery Room Air Medical Decision Making - MDM Narrative Medical decision making narrative: Due to the patient's continued AMS we will evaluate for metabolic encephalopathy and head trauma from the fall. Will do a head CT, as well as CBC, BMP, LFTs, lactic and ammonia. 1615 - CXR showed no acute cardiopulmonary process. Lactic is elevated at 4.0, total bili at 2 and ammonia at 95. Will give lactulose in ED and order US gallbladder. Also ordering mag, troponin, PT/INR, blood cultures, urine and giving IV fluids. Awaiting CT head results. 1710 - Mag wnl. PT slightly elevated. Head CT shows an old infarct but no acute bleed. GB US showed trace sludge without evidence of cholecystitis and mild hepatomegaly suggestive of diffuse fatty infiltration. This pt was signed out to Dr. Davis at this time for further management and likely admission. - Medical Records Medical records reviewed: Yes I reviewed the patient's medical records. - Lab Data Lab results reviewed: Yes I reviewed the patient's lab results. Result diagrams: 10/28/18 14:50 10/28/18 14:50 Lab Results 10/28/18 10/28/18 10/28/18 Range/Units 14:50 14:50 14:50 WBC 9.5 (4.3-11.1) K/mcL RBC 5.16 (4.19-5.50) M/mcL Hgb 15.8 (12.9-16.9) g/dL Hct 45.1 (37.5-50.1) % MCV 87.4 (83.0-100.0) fL MCH 30.6 (28.0-33.3) pg MCHC 35.0 (31.6-35.5) g/dL RDW 14.1 (11.5-14.5) % Plt Count 138 L (140-400) K/mcL MPV 10.7 (9.4-12.4) fL Immature Gran % 0.1 (0-4) % Seg Neutrophils % 50.4 % Lymphocytes % 37.4 % Monocytes % 9.1 % Eosinophils % 1.6 % Basophils % 1.4 % Neutrophils # 4.8 (1.6-8.9) K/mcL Lymphocytes # 3.6 (0.6-4.6) K/mcL Monocytes # 0.9 (0.0-1.3) K/mcL Eosinophils # 0.2 (0.0-0.6) K/mcL Basophils # 0.1 (0.0-0.2) K/mcL PT (9.4-12.1) Seconds INR Sodium 141 (136-145) mEq/L Potassium 3.3 L (3.5-5.1) mEq/L Chloride 110 H (98-107) mEq/L Carbon Dioxide 18 L (23-29) mEq/L BUN 10 (6-20) mg/dL Creatinine 0.86 (0.70-1.30) mg/dL Est GFR ( Amer) > 60 (> 60) Est GFR (Non-Af Amer) > 60 (> 60) BUN/Creatinine Ratio 12 (6-26) Glucose 106 H (70-105) mg/dL Calculated Osmolality 291 (280-300) Lactic Acid 4.0 H* (0.5-2.2) mmol/L Calcium 9.3 (8.6-10.3) mg/dL Magnesium (1.6-2.6) mg/dL Total Bilirubin 2.0 H (0.3-1.0) mg/dL Direct Bilirubin 0.7 H (0.0-0.2) mg/dL Indirect Bilirubin 1.3 H (0.0-1.2) mg/dL AST 16 (13-39) Units/L ALT 15 (7-52) Units/L Alkaline Phosphatase 77 (34-104) Units/L Ammonia (16-53) mcmol/L Troponin I (< 0.04) ng/mL Serum Total Protein 8.6 (6.4-8.9) g/dL Albumin 4.4 (3.5-5.7) g/dL Globulin 4.2 H (2.4-3.5) g/dL Albumin/Globulin Ratio 1.0 L (1.1-2.2) Urine Color (Yellow) Urine Clarity (Clear) Urine pH (5.0-8.0) pH Units Ur Specific Hudson (1.010-1.025) Urine Protein (Neg-Trace) mg/dL Urine Glucose (UA) (Normal) mg/dL Urine Ketones (Negative) mg/dL Urine Blood (Negative) Urine Nitrite (Negative) Urine Bilirubin (Negative) Urine Urobilinogen (Normal) mg/dL Ur Leukocyte Esterase (Negative) Urine Microscopic RBC (0-3) per hpf Urine Microscopic WBC (0-3) per hpf Ur Squamous Epith Cells (None-Few) per lpf Urine Bacteria (None-Few) per hpf Hyaline Casts (None-Few) per lpf Urine Opiates Screen (Umjofh=003) ng/mL Ur Barbiturates Screen (Qjxxpz=320) ng/mL Ur Phencyclidine Scrn (Cutoff=25) ng/mL Ur Amphetamines Screen (Ddbtfy=9627) ng/mL U Benzodiazepines Scrn (Cbtojh=088) ng/mL Urine Cocaine Screen (Cutoff= 300) ng/mL U Marijuana (THC) Screen (Cutoff = 50) ng/mL Ur Drug Screen Interp 10/28/18 10/28/18 10/28/18 Range/Units 14:50 15:50 15:50 WBC (4.3-11.1) K/mcL RBC (4.19-5.50) M/mcL Hgb (12.9-16.9) g/dL Hct (37.5-50.1) % MCV (83.0-100.0) fL MCH (28.0-33.3) pg MCHC (31.6-35.5) g/dL RDW (11.5-14.5) % Plt Count (140-400) K/mcL MPV (9.4-12.4) fL Immature Gran % (0-4) % Seg Neutrophils % % Lymphocytes % % Monocytes % % Eosinophils % % Basophils % % Neutrophils # (1.6-8.9) K/mcL Lymphocytes # (0.6-4.6) K/mcL Monocytes # (0.0-1.3) K/mcL Eosinophils # (0.0-0.6) K/mcL Basophils # (0.0-0.2) K/mcL PT 16.1 H (9.4-12.1) Seconds INR 1.4 Sodium (136-145) mEq/L Potassium (3.5-5.1) mEq/L Chloride (98-107) mEq/L Carbon Dioxide (23-29) mEq/L BUN (6-20) mg/dL Creatinine (0.70-1.30) mg/dL Est GFR ( Amer) (> 60) Est GFR (Non-Af Amer) (> 60) BUN/Creatinine Ratio (6-26) Glucose (70-105) mg/dL Calculated Osmolality (280-300) Lactic Acid (0.5-2.2) mmol/L Calcium (8.6-10.3) mg/dL Magnesium 2.0 (1.6-2.6) mg/dL Total Bilirubin (0.3-1.0) mg/dL Direct Bilirubin (0.0-0.2) mg/dL Indirect Bilirubin (0.0-1.2) mg/dL AST (13-39) Units/L ALT (7-52) Units/L Alkaline Phosphatase (34-104) Units/L Ammonia 95 H (16-53) mcmol/L Troponin I 0.03 (< 0.04) ng/mL Serum Total Protein (6.4-8.9) g/dL Albumin (3.5-5.7) g/dL Globulin (2.4-3.5) g/dL Albumin/Globulin Ratio (1.1-2.2) Urine Color (Yellow) Urine Clarity (Clear) Urine pH (5.0-8.0) pH Units Ur Specific Hudson (1.010-1.025) Urine Protein (Neg-Trace) mg/dL Urine Glucose (UA) (Normal) mg/dL Urine Ketones (Negative) mg/dL Urine Blood (Negative) Urine Nitrite (Negative) Urine Bilirubin (Negative) Urine Urobilinogen (Normal) mg/dL Ur Leukocyte Esterase (Negative) Urine Microscopic RBC (0-3) per hpf Urine Microscopic WBC (0-3) per hpf Ur Squamous Epith Cells (None-Few) per lpf Urine Bacteria (None-Few) per hpf Hyaline Casts (None-Few) per lpf Urine Opiates Screen (Otcijg=769) ng/mL Ur Barbiturates Screen (Xhkorh=032) ng/mL Ur Phencyclidine Scrn (Cutoff=25) ng/mL Ur Amphetamines Screen (Qcegzm=4799) ng/mL U Benzodiazepines Scrn (Gqgnfo=986) ng/mL Urine Cocaine Screen (Cutoff= 300) ng/mL U Marijuana (THC) Screen (Cutoff = 50) ng/mL Ur Drug Screen Interp 10/28/18 10/28/18 10/28/18 Range/Units 18:12 18:12 19:07 WBC (4.3-11.1) K/mcL RBC (4.19-5.50) M/mcL Hgb (12.9-16.9) g/dL Hct (37.5-50.1) % MCV (83.0-100.0) fL MCH (28.0-33.3) pg MCHC (31.6-35.5) g/dL RDW (11.5-14.5) % Plt Count (140-400) K/mcL MPV (9.4-12.4) fL Immature Gran % (0-4) % Seg Neutrophils % % Lymphocytes % % Monocytes % % Eosinophils % % Basophils % % Neutrophils # (1.6-8.9) K/mcL Lymphocytes # (0.6-4.6) K/mcL Monocytes # (0.0-1.3) K/mcL Eosinophils # (0.0-0.6) K/mcL Basophils # (0.0-0.2) K/mcL PT (9.4-12.1) Seconds INR Sodium (136-145) mEq/L Potassium (3.5-5.1) mEq/L Chloride (98-107) mEq/L Carbon Dioxide (23-29) mEq/L BUN (6-20) mg/dL Creatinine (0.70-1.30) mg/dL Est GFR ( Amer) (> 60) Est GFR (Non-Af Amer) (> 60) BUN/Creatinine Ratio (6-26) Glucose (70-105) mg/dL Calculated Osmolality (280-300) Lactic Acid 3.0 H (0.5-2.2) mmol/L Calcium (8.6-10.3) mg/dL Magnesium (1.6-2.6) mg/dL Total Bilirubin (0.3-1.0) mg/dL Direct Bilirubin (0.0-0.2) mg/dL Indirect Bilirubin (0.0-1.2) mg/dL AST (13-39) Units/L ALT (7-52) Units/L Alkaline Phosphatase (34-104) Units/L Ammonia (16-53) mcmol/L Troponin I (< 0.04) ng/mL Serum Total Protein (6.4-8.9) g/dL Albumin (3.5-5.7) g/dL Globulin (2.4-3.5) g/dL Albumin/Globulin Ratio (1.1-2.2) Urine Color Dark Yellow (Yellow) Urine Clarity Clear (Clear) Urine pH 5.0 (5.0-8.0) pH Units Ur Specific Hudson 1.016 (1.010-1.025) Urine Protein Negative (Neg-Trace) mg/dL Urine Glucose (UA) Normal (Normal) mg/dL Urine Ketones Trace H (Negative) mg/dL Urine Blood Negative (Negative) Urine Nitrite Negative (Negative) Urine Bilirubin Small H (Negative) Urine Urobilinogen Normal (Normal) mg/dL Ur Leukocyte Esterase Small H (Negative) Urine Microscopic RBC 0-3 (0-3) per hpf Urine Microscopic WBC 0-3 (0-3) per hpf Ur Squamous Epith Cells Moderate H (None-Few) per lpf Urine Bacteria None Seen (None-Few) per hpf Hyaline Casts None Seen (None-Few) per lpf Urine Opiates Screen Negative (Naozvx=618) ng/mL Ur Barbiturates Screen Negative (Rsakoe=468) ng/mL Ur Phencyclidine Scrn Negative (Cutoff=25) ng/mL Ur Amphetamines Screen Negative (Npwbfe=0011) ng/mL U Benzodiazepines Scrn Negative (Vgosxx=517) ng/mL Urine Cocaine Screen Negative (Cutoff= 300) ng/mL U Marijuana (THC) Screen Negative (Cutoff = 50) ng/mL Ur Drug Screen Interp See Below - Radiology Data Radiology results reviewed: Yes I reviewed the patient's radiology results. - EKG Data EKG #1 EKG attestation: Yes I reviewed and interpreted this EKG. EKG results narrative: EKG done at 1445 on 10/28/2018 HR 67 bpm, IN interval 143, QRS duration 95, QT 436, QTc 461 Sinus rhythm with borderline repol abnormality. ST segment depression in V2 and V3 which are new from previous EKG done on 06/26/2018. No other changes from previous EKG. Attestation Statement - Attestation Attestation: Resident Attestation: I examined this patient and my medical decision making was reviewed with the Resident Physician. I agree with the documented findings, disposition and treatment plan as described except to the extent set forth below. We independently had [id number] contact with the patient. Patient seen with resident physician Dr. To (Senior Resident) and Dr. Hamlin (Sigifredo Resident). Please see resident note for further details and disposition. Patient presenting today for evaluation of altered mental status. Patient had a seizure 3 on Wednesday. He does have a known seizure disorder from previous stroke versus traumatic brain injury. Patient has been admitted for both metabolic encephalopathy as well as seizures in the past. states he has been taking his medications on a regular basis. He did fall and hit his head. He is not on any anticoagulation. On evaluation the patient is slow to answer. He has inattention and irritability. No gross focal neuro deficits. Patient labs and imaging are pending. Patient with elevated ammonia. Elevated bilirubin. Ultrasound is negative for gallbladder disease. Patient does have hepatic steatosis. Patient has been given lactulose. Patient continues to be confused. Patient be admitted for altered mental status likely from metabolic encephalopathy and elevated ammonia.
[2018-10-28] MEDS ORDERED: 0.9 % Sodium Chloride 1,000 ML IVC ONE ×2 (15:27→18:10)
[2018-10-28 15:31] LABS: Alanine Aminotransferase 15 Units/L (7-52); Albumin 4.4 g/dL (3.5-5.7); Alkaline Phosphatase 77 Units/L (34-104); Aspartate Amino Transferase 16 Units/L (13-39); BUN/Creatinine Ratio 12 (6-26); Bilirubin,Direct 0.7 mg/dL (0.0-0.2); Bilirubin,Indirect 1.3 mg/dL (0.0-1.2); Blood Urea Nitrogen 10 mg/dL (6-20); Calcium 9.3 mg/dL (8.6-10.3); Carbon Dioxide 18 mEq/L (23-29); Chloride 110 mEq/L (98-107); Globulin 4.2 g/dL (2.4-3.5); Glucose 106 mg/dL (70-105); Osmolality,Calculated 291 (280-300); Potassium 3.3 mEq/L (3.5-5.1); Sodium 141 mEq/L (136-145); Total Protein 8.6 g/dL (6.4-8.9); eGFR For Non-African Americans > 60 (> 60)
[2018-10-28] MEDS ORDERED: Lactulose Oral Soln 20 GM/30 ML UDC PO ONE ×2 (16:12→20:48)
[2018-10-28 16:19] LABS: INR 1.4; Prothrombin Time 16.1 Seconds (9.4-12.1)
[2018-10-28 18:27] LABS: Troponin I 0.03 ng/mL (< 0.04)
[2018-10-28 18:29] LABS: Bilirubin,Urine Small (Negative); Blood,Urine Negative (Negative); Clarity,Urine Clear (Clear); Color,Urine Dark Yellow (Yellow); Glucose,Urine (UA) Normal (Normal); Ketones,Urine Trace mg/dL (Negative); Leukocyte Esterase,Urine Small (Negative); Nitrite,Urine Negative (Negative); Protein,Urine Negative (Neg-Trace); Specific Gravity,Urine 1.016 (1.010-1.025); Urobilinogen,Urine Normal (Normal)
[2018-10-28 18:30] LABS: Bacteria,Urine None Seen per hpf (None-Few); Hyaline Casts,Urine None Seen per lpf (None-Few); RBC,Urine 0-3 per hpf (0-3); Squamous Epithelial Cell,Urine Moderate per lpf (None-Few); WBC,Urine 0-3 per hpf (0-3)
[2018-10-28 18:36] LABS: Amphetamine Screen,Urine Negative ng/mL (Cutoff=1000); Barbiturate Screen,Urine Negative ng/mL (Cutoff=200); Benzodiazepines Screen,Urine Negative ng/mL (Cutoff=200); Cannabinoid Screen,Urine Negative ng/mL (Cutoff = 50); Cocaine Screen,Urine Negative ng/mL (Cutoff= 300); Opiate Screen,Urine Negative ng/mL (Cutoff=300); Phencyclidine Screen,Urine Negative ng/mL (Cutoff=25)
--- NOTE | 2018-10-28 20:02 | Internal Med History&Physical ---
<Castro Castellano Eliel - Last Filed: 10/28/18 23:54> Date of Encounter: 10/28/18 Time of Encounter: 20:30 Internal Medicine - H&P: HPI Chief complaint: AMS Admitted From: Home Plans for Post Hospital Care: Home History of present illness: Mr. Carreon is a 43 year old male with PMH of seizures, HTN, and diabetes. He presents to the ED today for altered mental status. Pt's reports that the patient had 3 seizures on Wednesday. She also reported that the pt fell and hit his head on a glass table during one of these seizures. She states he has not complained of any fevers or recent illnesses. Pt's was not at bedside during the encounter with this provider. Pt is alert, but not oriented to time or place or person. When asked what year it is, the patient pointed to the ceiling and said "up there is the year". He also pointed to his sitter in the ED and proclaimed she is president of the . Pt would also laugh sporadically during the encounter. However, I have seen the patient in residency clinic previously and this is far from his normal baseline. Of note he was admitted to [facility] at the end of May for similar episodes. At that time he was thought to have hepatic encephalopathy from elevated ammonia secondary to Keppra use. He was also found to have cirrhosis of unknown origin. Pt does not drink alcohole, nor does he use IV drugs. Sees Dr. Vasquez, neurologist, as outpatient. Past Med Surg Social Fam HX - Past Medical History Medical history: diabetes, hypertension, seizures Psychiatric history: no psych history - Past Surgical History Surgical History: no surgical history Additional surgical history: EEG - Social History Smoking Status: Never smoker Smokeless Tobacco Status: No Alcohol use: none Drug use: none - Family History Mother Living Status: Still Living Hx Family Neuromuscular Disorders: No Hx Family Neurologic Disorders: No Father Living Status: Still Living Hx Family Neuromuscular Disorders: No Hx Family Neurologic Disorders: No Internal Medicine - H&P: Meds Amitriptyline [Elavil] 50 mg PO DAILY 06/27/18 [History] Metformin HCl [Glucophage] 1,000 mg PO BID 06/27/18 [History] Omeprazole [PriLOSEC] 20 mg PO DAILY 06/27/18 [History] Sertraline [Zoloft] 50 mg PO DAILY 06/27/18 [History] Topiramate [Topamax] 150 mg PO BID 06/27/18 [History] Aspirin Enteric Coated [Aspirin EC] 81 mg PO DAILY #30 tablet. 07/03/18 [Rx] Atorvastatin [Lipitor] 40 mg PO HS #30 tablet 07/03/18 [Rx] Cyanocobalamin (B-12) [Vitamin B12] 1,000 mcg PO DAILY #30 tablet 07/03/18 [Rx] Lactulose 45 ml PO BID #2700 mls 07/03/18 [Rx] OXcarbazepine [Oxcarbazepine] 600 mg PO BID 10/28/18 [History] Allergy/AdvReac Type Severity Reaction Status Date / Time No Known Allergies Allergy Verified 10/28/18 14:19 ROS unobtainable: due to mental status All Systems PM: A 10-system review of systems was performed and is negative for pertinent findings except as documented above in the HPI. - Constitutional Vitals: Temp Pulse Resp BP Pulse Ox 98.6 F 65 14 127/84 99 10/28/18 14:49 10/28/18 19:36 10/28/18 19:36 10/28/18 19:36 10/28/18 19:36 General appearance: Present: A&O X 0, cooperative, pleasant. Absent: answers q uestions appropriately Exam: General: well developed, well nourished male in no acute distress Head: normocephalic and atraumatic Eyes: PERRL, EOMI, sclera anicteric, conjunctiva pink Neck: supple, trachea midline Lungs: CTA bilaterally. non-labored breathing. no wheezes, rales, or rhonchi Heart: RRR +s1 +S2. no murmurs, clicks, or rubs GI: abdomen soft, reportedly non-tender, however there is some guarding to palpation diffusely. normoactive bowel sounds Extremities: warm, peripheral pulses palpable and symmetrical. no edema or cyanosis Neuro: Alert, Does not answer questions appropriately. not oriented to time, place, or person. no speech difficulty or abnormality. Sensation intact. Normal motor exam Skin: warm, dry, intact Internal Med - H&P Results - Labs CBC & Chem 7: 10/28/18 14:50 10/28/18 14:50 Labs: Short CBC 10/28/18 Range/Units 14:50 WBC 9.5 (4.3-11.1) K/mcL Hgb 15.8 (12.9-16.9) g/dL Hct 45.1 (37.5-50.1) % Plt Count 138 L (140-400) K/mcL Neutrophils # 4.8 (1.6-8.9) K/mcL BMP 10/28/18 14:50 Sodium 141 Potassium 3.3 L Chloride 110 H Carbon Dioxide 18 L BUN 10 Creatinine 0.86 Glucose 106 H Calcium 9.3 Cardiac Enzymes 10/28/18 Range/Units 15:50 Troponin I 0.03 (< 0.04) ng/mL Liver Function 10/28/18 Range/Units 14:50 Total Bilirubin 2.0 H (0.3-1.0) mg/dL Direct Bilirubin 0.7 H (0.0-0.2) mg/dL AST 16 (13-39) Units/L ALT 15 (7-52) Units/L Alkaline Phosphatase 77 (34-104) Units/L Albumin 4.4 (3.5-5.7) g/dL Urine 10/28/18 Range/Units 18:12 Urine Color Dark Yellow (Yellow) Urine Clarity Clear (Clear) Urine pH 5.0 (5.0-8.0) pH Units Ur Specific [place] 1.016 (1.010-1.025) Urine Protein Negative (Neg-Trace) mg/dL Urine Glucose (UA) Normal (Normal) mg/dL - Impressions ITS Impressions Chest X-Ray 10/28/18 14:51 IMPRESSION: No acute process. D/ / Yassine Woodson MD / Yassine Woodson MD Interpreting Provider: Yassine Woodson MD Head CT 10/28/18 14:51 IMPRESSION: No acute intracranial abnormality. Old right MCA distribution infarct D/ / Jimmie Ingram MD / Jimmie Ingram MD Interpreting Provider: Jimmie Ingram MD Gallbladder Ultrasound 10/28/18 16:16 IMPRESSION: 1. Questionable trace gallbladder sludge. Otherwise, normal sonographic appearance of the gallbladder without findings to suggest acute cholecystitis. 2. Mild hepatomegaly with nonspecific findings most suggestive of diffuse fatty infiltration. D/ / Henri Cutler / Henri Cutler Interpreting Provider: Henri Cutler - Assessment and plan (1) Acute metabolic encephalopathy Current Visit: Yes Status: Acute Assessment and plan: Likely 2/2 cirrhosis with elevated ammonia, elevated INR, and slightly decreased platelets as seen on ED labs Unknown compliance of home meds for seizures and home lactulose UDS in ED was negative CT head negative for acute abnormality Was given 20mg lactulose in ED Will give another 20mg to bring total to 40mg which is home dose BID Replace potassium and continue to monitor electrolytes IV fluids Possible related to seizure medications, will check levels to ensure appropriate dosing If there is no clinical improvement with electrolyte correction, will contact neuro for further assistance and with hx of seizures (2) Seizure disorder Current Visit: Yes Status: Chronic Assessment and plan: Check home med levels as above Seizure precautions (3) DM type 2 (diabetes mellitus, type 2) Current Visit: Yes Status: Chronic Assessment and plan: Hx of DM2 Hold home metformin during admission SSI Qualifiers: Diabetes mellitus fci insulin use: without fci use Diabetes mellitus complication status: without complication Qualified Code(s): E11.9 - Type 2 diabetes mellitus without complications (4) HTN (hypertension) Current Visit: Yes Status: Chronic Assessment and plan: Continue home meds Qualifiers: Hypertension type: essential hypertension Qualified Code(s): I10 - Essential (primary) hypertension (5) DVT prophylaxis Current Visit: Yes Status: Acute Assessment and plan: EPCDs Deferring chemical prophylaxis at this time since pt has elevated INR not on AC related to cirrhosis - Time Spent With Patient Total time spent is greater than 50% in coordination of care (as documented) at patient's floor/unit and/or counseling patient: <Ernesto Rao - Last Filed: 10/29/18 07:48> Date of Encounter: 10/29/18 Internal Medicine - H&P: HPI History of present illness: Mr. Carreon is a 43 year old male All Systems PM: A 10-system review of systems was performed and is negative for pertinent findings except as documented above in the HPI. - Constitutional Vitals: Temp Pulse Resp BP Pulse Ox 98.5 F 60 16 130/82 97 10/29/18 05:57 10/29/18 05:57 10/29/18 05:57 10/29/18 05:57 10/29/18 05:57 Internal Med - H&P Results - Labs CBC & Chem 7: 10/29/18 01:27 10/29/18 01:27 Labs: Short CBC 10/28/18 10/29/18 Range/Units 14:50 01:27 WBC 9.5 8.1 (4.3-11.1) K/mcL Hgb 15.8 14.0 D (12.9-16.9) g/dL Hct 45.1 39.7 (37.5-50.1) % Plt Count 138 L 117 L (140-400) K/mcL Neutrophils # 4.8 3.7 (1.6-8.9) K/mcL BMP 10/28/18 10/29/18 14:50 01:27 Sodium 141 140 Potassium 3.3 L 3.4 L Chloride 110 H 114 H Carbon Dioxide 18 L 19 L BUN 10 9 Creatinine 0.86 0.80 Glucose 106 H 130 H Calcium 9.3 8.4 L Cardiac Enzymes 10/28/18 Range/Units 15:50 Troponin I 0.03 (< 0.04) ng/mL Liver Function 10/28/18 10/29/18 Range/Units 14:50 01:27 Total Bilirubin 2.0 H 1.6 H (0.3-1.0) mg/dL Direct Bilirubin 0.7 H (0.0-0.2) mg/dL AST 16 14 (13-39) Units/L ALT 15 11 (7-52) Units/L Alkaline Phosphatase 77 60 (34-104) Units/L Albumin 4.4 3.6 (3.5-5.7) g/dL Urine 10/28/18 Range/Units 18:12 Urine Color Dark Yellow (Yellow) Urine Clarity Clear (Clear) Urine pH 5.0 (5.0-8.0) pH Units Ur Specific [place] 1.016 (1.010-1.025) Urine Protein Negative (Neg-Trace) mg/dL Urine Glucose (UA) Normal (Normal) mg/dL - Impressions ITS Impressions Chest X-Ray 10/28/18 14:51 IMPRESSION: No acute process. D/ / Yassine Woodson MD / Yassine Woodson MD Interpreting Provider: Yassine Woodson MD Head CT 10/28/18 14:51 IMPRESSION: No acute intracranial abnormality. Old right MCA distribution infarct D/ / Jimmie Ingram MD / Jimmie Ingram MD Interpreting Provider: Jimmie Ingram MD Gallbladder Ultrasound 10/28/18 16:16 IMPRESSION: 1. Questionable trace gallbladder sludge. Otherwise, normal sonographic appearance of the gallbladder without findings to suggest acute cholecystitis. 2. Mild hepatomegaly with nonspecific findings most suggestive of diffuse fatty infiltration. D/ / Henri Cutler / Henri Cutler Interpreting Provider: Henri Cutler - Time Spent With Patient Total time spent is greater than 50% in coordination of care (as documented) at patient's floor/unit and/or counseling patient: - Attending Attestation I saw and evaluated the patient. I reviewed the residents note, performed my own physical examination and agree with findings and plan as documented in the residents note. Patient seen and examined on 10/29/18. Patient presented with altered mental status, found to have elevated ammonia level of 95. Patient does not answer questions appropriately but does not seem to be in distress. Started lactulose, and patient has ad several bowel movements during the night. Patient has had seizures within the last few days, however no seizure like activity since arrival. Will continue to monitor.
[2018-10-28] MEDS ORDERED: Naloxone 0.4 MG/ML INJ IVP PRN (20:44)
[2018-10-28] MEDS ORDERED: Potassium Chloride 40 MEQ, Lidocaine 1% 2 ML in D5% in Water 500 ML IVPB ONE (21:00)
[2018-10-28] MEDS: 0.9 % Sodium Chloride 1,000 ML IVC SCH (22:09)
[2018-10-28] MEDS ORDERED: D5% in Water 1,000 ML IVC PRN (23:28)
[2018-10-28] MEDS ORDERED: Dextrose Gel 15 GM/37.5 ML TUBE PO PRN ×2 (23:28)
[2018-10-28] MEDS ORDERED: *HR* Dextrose 50 % in Water (Syg) 50 ML SYRINGE IVP PRN (23:28)
[2018-10-29 01:48] LABS: Basophils # 0.1 K/mcL (0.0-0.2); Basophils % 1.4 %; Eosinophils # 0.1 K/mcL (0.0-0.6); Eosinophils % 1.7 %; Hematocrit 39.7 % (37.5-50.1); Immature Granulocytes % 0.2 % (0-4); Lymphocytes # 3.4 K/mcL (0.6-4.6); Lymphocytes % 41.9 %; Mean Corpuscular HGB Conc 35.3 g/dL (31.6-35.5); Mean Corpuscular Hemoglobin 30.8 pg (28.0-33.3); Mean Corpuscular Volume 87.4 fL (83.0-100.0); Mean Platelet Volume 10.6 fL (9.4-12.4); Monocytes # 0.7 K/mcL (0.0-1.3); Monocytes % 9.2 %; Neutrophils # 3.7 K/mcL (1.6-8.9); Platelet Count 117 K/mcL (140-400); Red Blood Count 4.54 M/mcL (4.19-5.50); Segmented Neutrophils % 45.6 %
[2018-10-29 01:58] LABS: Alanine Aminotransferase 11 Units/L (7-52); Albumin 3.6 g/dL (3.5-5.7); Alkaline Phosphatase 60 Units/L (34-104); Aspartate Amino Transferase 14 Units/L (13-39); BUN/Creatinine Ratio 11 (6-26); Bilirubin,Total 1.6 mg/dL (0.3-1.0); Blood Urea Nitrogen 9 mg/dL (6-20); Calcium 8.4 mg/dL (8.6-10.3); Carbon Dioxide 19 mEq/L (23-29); Chloride 114 mEq/L (98-107); Globulin 3.5 g/dL (2.4-3.5); Glucose 130 mg/dL (70-105); Osmolality,Calculated 290 (280-300); Phosphorous 2.4 mg/dL (2.7-4.5); Potassium 3.4 mEq/L (3.5-5.1); Sodium 140 mEq/L (136-145); Total Protein 7.1 g/dL (6.4-8.9); eGFR For Non-African Americans > 60 (> 60)
[2018-10-29 02:00] LABS: INR 1.5; Prothrombin Time 16.5 Seconds (9.4-12.1)
[2018-10-29] MEDS: 0.9 % Sodium Chloride 1,000 ML IVC SCH (06:13)
[2018-10-29] MEDS: Insulin LISPRO 300 UNITS/3 ML VIAL SQ SCH ×4 (07:48→20:08)
[2018-10-29] MEDS: Lactulose Oral Soln 20 GM/30 ML UDC PO SCH ×2 (07:56→23:47)
--- NOTE | 2018-10-29 17:20 | Internal Med Progress Note ---
Hospitalist Progress Note - Encounter Date of Encounter: 10/29/18 Time of Encounter: 17:18 - Subjective Interval History: Pt resting and a sitter at bedside. His talk is incoherent and he is disoriented to people and time. but he is not combative, no seizure activity witnessed. - Exam Vitals: Temp Pulse Resp BP Pulse Ox 99.3 F 60 18 129/79 97 10/29/18 16:19 10/29/18 16:19 10/29/18 16:19 10/29/18 16:19 10/29/18 16:19 Exam: General: well developed, well nourished male in no acute distress Head: normocephalic and atraumatic Eyes: PERRL, EOMI, sclera anicteric, conjunctiva pink Neck: supple, trachea midline Lungs: CTA bilaterally. non-labored breathing. no wheezes, rales, or rhonchi Heart: RRR +s1 +S2. no murmurs, clicks, or rubs GI: abdomen soft, reportedly non-tender, however there is some guarding to palpation diffusely. normoactive bowel sounds Extremities: warm, peripheral pulses palpable and symmetrical. no edema or cyanosis Neuro: Alert, Does not answer questions appropriately. not oriented to time, place, or person. no speech difficulty or abnormality. Sensation intact. Normal motor exam Skin: warm, dry, intact - Assessment and Plan (1) Seizure disorder Current Visit: Yes Status: Chronic Assessment and Plan: Check home med levels as above Seizure precautions (2) Acute metabolic encephalopathy Current Visit: Yes Status: Acute Assessment and Plan: Likely 2/2 cirrhosis with elevated ammonia, elevated INR, and slightly decreased platelets as seen on ED labs Unknown compliance of home meds for seizures and home lactulose UDS in ED was negative CT head negative for acute abnormality Received 40 mg lactulose at ED, continue home dose of Lactulose Replace potassium and continue to monitor electrolytes IV fluids Possible related to seizure medications, will check levels to ensure appropriate dosing If there is no clinical improvement with electrolyte correction, will contact neuro for further assistance and with hx of seizures (3) DM type 2 (diabetes mellitus, type 2) Current Visit: No Status: Chronic Assessment and Plan: Hx of DM2 Hold home metformin during admission SSI (4) HTN (hypertension) Current Visit: No Status: Chronic Assessment and Plan: Continue home meds (5) DVT prophylaxis Current Visit: Yes Status: Acute Assessment and Plan: EPCDs Deferring chemical prophylaxis at this time since pt has elevated INR not on AC related to cirrhosis - Time Spent with Patient Total time spent is greater than 50% in coordination of care (as documented) at patient's floor/unit and/or counseling patient: Greater than 35 minutes Plan of Care Discussed with: family Internal Medicine: Result - Labs CBC & Chem 7: 10/29/18 01:27 10/29/18 01:27 Labs: Short CBC 10/29/18 Range/Units 01:27 WBC 8.1 (4.3-11.1) K/mcL Hgb 14.0 D (12.9-16.9) g/dL Hct 39.7 (37.5-50.1) % Plt Count 117 L (140-400) K/mcL Neutrophils # 3.7 (1.6-8.9) K/mcL BMP 10/29/18 01:27 Sodium 140 Potassium 3.4 L Chloride 114 H Carbon Dioxide 19 L BUN 9 Creatinine 0.80 Glucose 130 H Calcium 8.4 L Cardiac Enzymes 10/28/18 Range/Units 15:50 Troponin I 0.03 (< 0.04) ng/mL Liver Function 10/29/18 Range/Units 01:27 Total Bilirubin 1.6 H (0.3-1.0) mg/dL AST 14 (13-39) Units/L ALT 11 (7-52) Units/L Alkaline Phosphatase 60 (34-104) Units/L Albumin 3.6 (3.5-5.7) g/dL Urine 10/28/18 Range/Units 18:12 Urine Color Dark Yellow (Yellow) Urine Clarity Clear (Clear) Urine pH 5.0 (5.0-8.0) pH Units Ur Specific [place] 1.016 (1.010-1.025) Urine Protein Negative (Neg-Trace) mg/dL Urine Glucose (UA) Normal (Normal) mg/dL - ABG Interpretation ABG results: PT/INR, D-dimer PT 16.5 Seconds (9.4-12.1) H 10/29/18 01:27 Consult Discharge Plan - Plan Referrals: Henri Montejo DO [Partnered Physician] - 11/16/18 4:00 pm (3) DM type 2 (diabetes mellitus, type 2) Qualifiers: Diabetes mellitus truck terminal manager insulin use: without fci use Diabetes kayla litus complication status: without complication Qualified Code(s): E11.9 - Type 2 diabetes mellitus without complications (4) HTN (hypertension) Qualifiers: Hypertension type: essential hypertension Qualified Code(s): I10 - Essential (primary) hypertension
--- NOTE | 2018-10-29 20:12 | Electrocardiograph Report ---
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
[2018-10-29] MEDS ORDERED: Ondansetron 4 MG/2 ML VIAL IVP PRN (21:59)
[2018-10-29] MEDS: Topiramate 100 MG TABLET PO SCH (23:47)
[2018-10-30] MEDS ORDERED: Ondansetron 4 MG/2 ML VIAL IVP SCH
[2018-10-30] MEDS ORDERED: Nitroglycerin 0.4 MG TAB.SUBL SL PRN (06:02)
[2018-10-30 07:13] LABS: Troponin I 0.03 ng/mL (< 0.04)
[2018-10-30 08:52] LABS: Alanine Aminotransferase 10 Units/L (7-52); Albumin 3.8 g/dL (3.5-5.7); Alkaline Phosphatase 61 Units/L (34-104); Aspartate Amino Transferase 14 Units/L (13-39); BUN/Creatinine Ratio 12 (6-26); Bilirubin,Total 1.4 mg/dL (0.3-1.0); Blood Urea Nitrogen 8 mg/dL (6-20); Calcium 8.6 mg/dL (8.6-10.3); Carbon Dioxide 17 mEq/L (23-29); Chloride 114 mEq/L (98-107); Globulin 3.8 g/dL (2.4-3.5); Glucose 127 mg/dL (70-105); Osmolality,Calculated 290 (280-300); Potassium 3.3 mEq/L (3.5-5.1); Sodium 140 mEq/L (136-145); Total Protein 7.6 g/dL (6.4-8.9); eGFR For Non-African Americans > 60 (> 60)
[2018-10-30] MEDS: Insulin LISPRO 300 UNITS/3 ML VIAL SQ SCH ×4 (10:33→22:22)
[2018-10-30] MEDS ORDERED: *HR* LORazepam 2 MG/ML VIAL ONE (10:42)
[2018-10-30] MEDS ORDERED: *HR* LORazepam 2 MG/ML VIAL IVP STA (10:45)
[2018-10-30] MEDS: Lactulose Oral Soln 20 GM/30 ML UDC PO SCH ×2 (10:48→22:21)
[2018-10-30] MEDS: Topiramate 100 MG TABLET PO SCH ×2 (10:48→22:20)
[2018-10-30] MEDS: Cyanocobalamin (B-12) 1,000 MCG TABLET PO SCH (10:48)
[2018-10-30] MEDS: Aspirin Enteric Coated 81 MG Tablet PO SCH (10:48)
[2018-10-30] MEDS ORDERED: *HR* LORazepam 2 MG/ML VIAL IVP PRN (12:48)
--- NOTE | 2018-10-30 12:54 | Internal Med Progress Note ---
Hospitalist Progress Note - Encounter Date of Encounter: 10/30/18 Time of Encounter: 12:49 - Subjective Interval History: a sitter at bedside. reported he had one more seizure this morning, lasted about 2 mins, 2 mg ativan IV given. currently resting. - Exam Vitals: Temp Pulse Resp BP Pulse Ox 97.9 F 80 20 109/72 92 10/30/18 11:59 10/30/18 11:59 10/30/18 11:59 10/30/18 11:59 10/30/18 11:59 Exam: General: well developed, well nourished male in no acute distress Head: normocephalic and atraumatic Eyes: PERRL, EOMI, sclera anicteric, conjunctiva pink Neck: supple, trachea midline Lungs: CTA bilaterally. non-labored breathing. no wheezes, rales, or rhonchi Heart: RRR +s1 +S2. no murmurs, clicks, or rubs GI: abdomen soft, reportedly non-tender, however there is some guarding to palpation diffusely. normoactive bowel sounds Extremities: warm, peripheral pulses palpable and symmetrical. no edema or cyanosis Neuro: Alert, Does not answer questions appropriately. not oriented to time, place, or person. no speech difficulty or abnormality. Sensation intact. Normal motor exam Skin: warm, dry, intact - Assessment and Plan (1) Acute metabolic encephalopathy Current Visit: Yes Status: Acute Assessment and Plan: Likely 2/2 cirrhosis with elevated ammonia, elevated INR, and slightly decreased platelets as seen on ED labs Unknown compliance of home meds for seizures and home lactulose UDS in ED was negative CT head negative for acute abnormality Received 40 mg lactulose at ED, continue home dose of Lactulose Replace potassium and continue to monitor electrolytes IV fluids Possible related to seizure medications, pending Topamax level. Had another Seizure on 10/30, received 2 mg Ativan IV. Topamax dose increased from 150 mg BID to 200 mg BID, Neurology consult. (2) Seizure disorder Current Visit: Yes Status: Chronic Assessment and Plan: Check home med levels as above, dose adjusted, neuro consult. Seizure precautions (3) DM type 2 (diabetes mellitus, type 2) Current Visit: No Status: Chronic Assessment and Plan: Hx of DM2 Hold home metformin during admission SSI (4) HTN (hypertension) Current Visit: No Status: Chronic Assessment and Plan: Continue home meds (5) DVT prophylaxis Current Visit: Yes Status: Acute Assessment and Plan: EPCDs Deferring chemical prophylaxis at this time since pt has elevated INR not on AC related to cirrhosis - Time Spent with Patient Total time spent is greater than 50% in coordination of care (as documented) at patient's floor/unit and/or counseling patient: Greater than 35 minutes Plan of Care Discussed with: patient Internal Medicine: Result - Labs CBC & Chem 7: 10/29/18 01:27 10/30/18 06:11 Labs: BMP 10/30/18 06:11 Sodium 140 Potassium 3.3 L Chloride 114 H Carbon Dioxide 17 L BUN 8 Creatinine 0.68 L Glucose 127 H Calcium 8.6 Cardiac Enzymes 10/30/18 Range/Units 06:11 Troponin I 0.03 (< 0.04) ng/mL Liver Function 10/30/18 Range/Units 06:11 Total Bilirubin 1.4 H (0.3-1.0) mg/dL AST 14 (13-39) Units/L ALT 10 (7-52) Units/L Alkaline Phosphatase 61 (34-104) Units/L Albumin 3.8 (3.5-5.7) g/dL - ABG Interpretation ABG results: PT/INR, D-dimer PT 16.5 Seconds (9.4-12.1) H 10/29/18 01:27 Consult Discharge Plan - Plan Referrals: Henri Montejo DO [Partnered Physician] - 11/16/18 4:00 pm (3) DM type 2 (diabetes mellitus, type 2) Qualifiers: Diabetes mellitus halfway insulin use: without halfway use Diabetes mellitus complication status: without complication Qualified Code(s): E11.9 - Type 2 diabetes mellitus without complications (4) HTN (hypertension) Qualifiers: Hypertension type: essential hypertension Qualified Code(s): I10 - Essential (primary) hypertension
[2018-10-31 05:57] LABS: Alanine Aminotransferase 12 Units/L (7-52); Alkaline Phosphatase 63 Units/L (34-104); Aspartate Amino Transferase 16 Units/L (13-39); BUN/Creatinine Ratio 12 (6-26); Bilirubin,Total 1.5 mg/dL (0.3-1.0); Blood Urea Nitrogen 9 mg/dL (6-20); Calcium 8.7 mg/dL (8.6-10.3); Carbon Dioxide 20 mEq/L (23-29); Chloride 113 mEq/L (98-107); Globulin 3.9 g/dL (2.4-3.5); Glucose 132 mg/dL (70-105); Osmolality,Calculated 293 (280-300); Potassium 3.3 mEq/L (3.5-5.1); Sodium 141 mEq/L (136-145); Total Protein 7.9 g/dL (6.4-8.9); eGFR For Non-African Americans > 60 (> 60)
--- NOTE | 2018-10-31 08:13 | Neurology - Consult Note ---
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 Mild slowing is a nonspecific pattern could be seen in patient with metabolic toxic encephalopathy at the same time could be seen with postictal state, intermittent triphasic waves noted. MRI brain with and without contrast ordered. Topamax dose changed back down to home dose 150 mg BID because rapid escalation in Topamax dosing can cause further encephalopathy. Resume home dose Oxcarbaxepine Continue seizure precautions Further recommendations to follow (2) Acute metabolic encephalopathy Current Visit: Yes Status: Acute Ammonia level decreased since admission, patient remains on lactulose. (3) History of CVA (cerebrovascular accident) Current Visit: No Status: Chronic CT brain revealed no acute intracranial abnormality and old right MCA infarct. MRI brain pending Continue Aspirin and statin (4) HTN (hypertension) Current Visit: No Status: Chronic Qualifiers: Hypertension type: essential hypertension Qualified Code(s): I10 - Essential (primary) hypertension (5) DM type 2 (diabetes mellitus, type 2) Current Visit: No Status: Chronic Qualifiers: Diabetes mellitus alf insulin use: without medical terminologist use Diabetes mellitus complication status: without complication Qualified Code(s): E11.9 - Type 2 diabetes mellitus without complications History of Present Illness Chief complaint: Seizure HPI: Mr. Carreon is a 43 year old male with past medical history of hepatic encephalopathy, diabetes, hypertension, and seizure disorder who follows with neurologist Dr. Vasquez that presented secondary to altered mental status and seizure activity. Patient's reports he fell and hit his head on a glass table 5 days ago. His described the seizures as staring off into space and other times he collapses and convulses with them. In the ED, patient was found to have elevated ammonia level and CT brain revealed no acute intracranial abnormality and old right MCA infarct. Of note, patient was recently admitted in June 2018 with a similar presentation. Patient was started on Topamax and Lactulose at that time family reports he has not missed any doses. He denied fevers or recent illness. Since admission, elevated ammonia level has decreased. Patient had another seizure yesterday morning and was given 2 mg Ativan IV. Neurology was consulted for further recommendations Past Med Surg Social Fam HX - Past Medical History Medical history: diabetes, hypertension, seizures Psychiatric history: no psych history - Past Surgical History Surgical History: no surgical history Additional surgical history: EEG - Social History Smoking Status: Never smoker Smokeless Tobacco Status: No Alcohol use: none Drug use: none - Family History Mother Living Status: Still Living Hx Family Neuromuscular Disorders: No Hx Family Neurologic Disorders: No Father Living Status: Still Living Hx Family Neuromuscular Disorders: No Hx Family Neurologic Disorders: No Medications and Allergies Amitriptyline [Elavil] 50 mg PO DAILY 06/27/18 [History] Metformin HCl [Glucophage] 1,000 mg PO BID 06/27/18 [History] Omeprazole [PriLOSEC] 20 mg PO DAILY 06/27/18 [History] Topiramate [Topamax] 150 mg PO BID 06/27/18 [History] Aspirin Enteric Coated [Aspirin EC] 81 mg PO DAILY #30 tablet. 07/03/18 [Rx] Atorvastatin [Lipitor] 40 mg PO HS #30 tablet 07/03/18 [Rx] Cyanocobalamin (B-12) [Vitamin B12] 1,000 mcg PO DAILY #30 tablet 07/03/18 [Rx] Lactulose 45 ml PO BID #2700 mls 07/03/18 [Rx] OXcarbazepine [Oxcarbazepine] 600 mg PO BID 10/28/18 [History] Allergy/AdvReac Type Severity Reaction Status Date / Time No Known Allergies Allergy Verified 10/28/18 14:19 All Systems: The remainder of the systems were reviewed and are negative - Constitutional Constitutional ROS IM: headache(s), lethargy, no chills, no fever(s), no weakness - Nose, Mouth, Throat Nose, mouth and throat: headache(s), no disequilibrium, no dizziness, no neck pain - Cardiovascular Cardiovascular ROS IM: no chest pain, no palpitations - Respiratory Respiratory IM: no cough, no wheezing - Gastrointestinal Gastrointestinal: abdominal pain, no nausea, no vomiting - Genitourinary Genitourinary ROS: no urinary frequency, no urinary urgency - Musculoskeletal Musculoskeletal ROS IM: no back pain, no neck pain, no stiffness - Integumentary Integumentary IM: no new lesions, no rash - Neurological Neurological ROS: confusion, convulsions, no dizziness, no numbness, no tingling - Psychiatric Psychiatric general PM: no anxiety, no depression Physical Examination - Vital Signs Vital Signs: Initial Vital Signs Temp Pulse Resp BP Pulse Ox 98.6 F 74 20 125/89 97 10/28/18 14:20 10/28/18 14:20 10/28/18 14:20 10/28/18 14:20 10/28/18 14:20 - Constitutional General appearance: uncomfortable (frontal headache) - Neurologic Sensorimotor examination: intact, pronator drift Detailed motor examination: grossly full strength in all extremities, full strength in all major muscle groups Motor examination - right side: 5/5: deltoids, biceps, triceps, wrist flexion, wrist extension, rn orthopaedic, hip flexors, tibialis Anterior, quadriceps, toe extension (EHL), plantarflexion Motor examination - left side: 5/5: deltoids, biceps, triceps, wrist flexion, wrist extension, hip flexors, rn orthopaedic, quadriceps, tibialis Anterior, toe extension (EHL), plantarflexion Detailed sensory examination: intact, light touch Reflex and gait examination: intact Mental Status Examination: awake, alert, oriented to person, oriented to place, oriented to time, follows commands appropriately, answers questions appropriately, no agnosia, no aphasia, no aproxia, follows simple commands Cranial nerve examination: PERRL, EOMI, visual maravilla intact, sensory to face intact, mastication intact, no facial asymmetry is present, no dysarthria, flexes SCM and trapezius muscles symmetrically with full power, tongue protrudes midline, no atrophy or facial fasiculations present Cerebellar examination: no dysmetria, performs finger to nose and heel to brower symmetrically without ataxia, no gait ataxia, no truncal ataxia, no difficulty with rapid alternating movements Results - Laboratory Findings CBC and BMP: 10/29/18 01:27 10/31/18 05:17 Abnormal lab findings: Abnormal lab results Plt Count 117 K/mcL (140-400) L 10/29/18 01:27 PT 16.5 Seconds (9.4-12.1) H 10/29/18 01:27 Potassium 3.3 mEq/L (3.5-5.1) L 10/31/18 05:17 Chloride 113 mEq/L (98-107) H 10/31/18 05:17 Carbon Dioxide 20 mEq/L (23-29) L 10/31/18 05:17 Glucose 132 mg/dL (70-105) H 10/31/18 05:17 POC Glucose 108 mg/dL (70-99) H 10/30/18 21:02 Phosphorus 2.4 mg/dL (2.7-4.5) L 10/29/18 01:27 Total Bilirubin 1.5 mg/dL (0.3-1.0) H 10/31/18 05:17 Direct Bilirubin 0.7 mg/dL (0.0-0.2) H 10/28/18 14:50 Indirect Bilirubin 1.3 mg/dL (0.0-1.2) H 10/28/18 14:50 Ammonia 58 mcmol/L (16-53) H 10/30/18 13:47 Globulin 3.9 g/dL (2.4-3.5) H 10/31/18 05:17 Albumin/Globulin Ratio 1.0 (1.1-2.2) L 10/31/18 05:17 Urine Ketones Trace mg/dL (Negative) H 10/28/18 18:12 Urine Bilirubin Small (Negative) H 10/28/18 18:12 Ur Leukocyte Esterase Small (Negative) H 10/28/18 18:12 Ur Squamous Epith Cells Moderate per lpf (None-Few) H 10/28/18 18:12 - Diagnostic Findings Additional findings: ITS Impressions Chest X-Ray 10/28/18 14:51 IMPRESSION: No acute process. D/ / Yassine Woodson MD / Yassine Woodson MD Interpreting Provider: Yassine Woodson MD Head CT 10/28/18 14:51 IMPRESSION: No acute intracranial abnormality. Old right MCA distribution infarct D/ / Jimmie Ingram MD / Jimmie Ingram MD Interpreting Provider: Jimmie Ingram MD Gallbladder Ultrasound 10/28/18 16:16 IMPRESSION: 1. Questionable trace gallbladder sludge. Otherwise, normal sonographic appearance of the gallbladder without findings to suggest acute cholecystitis. 2. Mild hepatomegaly with nonspecific findings most suggestive of diffuse fatty infiltration. D/ / Henri Cutler / Henri Cutler Interpreting Provider: Henri Cutler Consult Discharge Plan - Plan Referrals: Henri Montejo DO [Partnered Physician] - 11/16/18 4:00 pm <Gilbert Garcia I - Last Filed: 10/31/18 16:01> Date of Encounter: 10/31/18 Assessment and Plan (1) Seizure disorder Current Visit: Yes Status: Chronic Pt was seen and examined, my medical decision was reviewed with the Resident Physician, I agree with the documented findings, disposition and treatment plas as described except to the extent set forth below. Patient who apparently had a history of seizures as well as stroke in the past admitted with dizziness mental status changes as well as elevated level of ammonia that might be contributing to his abnormal mentation. 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 Carreon is a 43 year old male All Systems: The remainder of the systems were reviewed and are negative Physical Examination - Vital Signs Vital Signs: Initial Vital Signs Temp Pulse Resp BP Pulse Ox 98.6 F 74 20 125/89 97 10/28/18 14:20 10/28/18 14:20 10/28/18 14:20 10/28/18 14:20 10/28/18 14:20 - Exam Exam: GENERAL: Comfortable in no acute distress HEENT: Normal LUNGS: CTA HEART: RRR, S1 S2 Audible, no murmur EXTREMITIES: No Pedal edema. DETAILED NEUROLOGICAL EXAMINATION: MENTAL STATUS: Oriented to person, place, date and situation. Memory: knows the President, Aware of recent events Recent Memory Intact, Attention span is normal Cranial Nerve Examination: CN - II: Visual Acuity, Field of Vision Normal, Fundus examination: No disk edema, Pupils- size shape reaction to light and accommodation: All normal. CN III, IV, : External ocular movements were intact, Pupils were reactive, Nodrooping of the eyelids CN V: Sensation over the face to light touch and pinprick all normal. Corneal reflexes not tested, jaw jerk normal. CN VII: No facial asymmetry, no flattening of nasolabial folds, no difficulty in closing the eyes, no loss of forehead wrinkles, no difficulty in eye-closure, frowning raising eyebrows. CNVIII: No significant hearing loss CN IX, X: Uvula centralized not deviated, Gag reflex: Not tested CN X1: Sternocleidomastoid, trapezius, normal or evidence of any weakness. CN X11: No Dysarthria, no wasting or fibrilation f tongue muscles, no deviation, tongue muscle strength normal. Motor examination: No hypertrophy, tone was normal, power grade 0-5 Upper limbs Proximal- No difficulty in lifting the arms above the head. Distal- No weakness in distal muscles On formal testing 5/5 all over Lower limbs On formal testing 5/5 all over Coordination: [id number] normal. Target pursuit normal finger tapping normal, Rapid alternating moment of wrist normal Sensory system: Superficial sensations- Touch normal. Pain- Pinprick, Temperature all normal, Deep sensation normal, Joint position sense normal. Cortical sensation, Tactile discrimination, localization and extinction all normal. Deep tendon reflexes. Symmetrical bilateral, No evidence of Babinski. No sign of meningeal irritation Gait Examination: Deferred - Constitutional General appearance: comfortable Results - Laboratory Findings CBC and BMP: 10/29/18 01:27 10/31/18 05:17 Abnormal lab findings: Abnormal lab results Plt Count 117 K/mcL (140-400) L 10/29/18 01:27 PT 16.5 Seconds (9.4-12.1) H 10/29/18 01:27 Potassium 3.3 mEq/L (3.5-5.1) L 10/31/18 05:17 Chloride 113 mEq/L (98-107) H 10/31/18 05:17 Carbon Dioxide 20 mEq/L (23-29) L 10/31/18 05:17 Glucose 132 mg/dL (70-105) H 10/31/18 05:17 POC Glucose 142 mg/dL (70-99) H 10/31/18 08:54 Phosphorus 2.4 mg/dL (2.7-4.5) L 10/29/18 01:27 Total Bilirubin 1.5 mg/dL (0.3-1.0) H 10/31/18 05:17 Direct Bilirubin 0.7 mg/dL (0.0-0.2) H 10/28/18 14:50 Indirect Bilirubin 1.3 mg/dL (0.0-1.2) H 10/28/18 14:50 Ammonia 58 mcmol/L (16-53) H 10/30/18 13:47 Globulin 3.9 g/dL (2.4-3.5) H 10/31/18 05:17 Albumin/Globulin Ratio 1.0 (1.1-2.2) L 10/31/18 05:17 Urine Ketones Trace mg/dL (Negative) H 10/28/18 18:12 Urine Bilirubin Small (Negative) H 10/28/18 18:12 Ur Leukocyte Esterase Small (Negative) H 10/28/18 18:12 Ur Squamous Epith Cells Moderate per lpf (None-Few) H 10/28/18 18:12
[2018-10-31] MEDS ORDERED: Gadolinium Contrast Agent (WT Based) IV PRN (08:47)
[2018-10-31] MEDS: Lactulose Oral Soln 20 GM/30 ML UDC PO SCH ×2 (09:07→20:59)
[2018-10-31] MEDS: Aspirin Enteric Coated 81 MG Tablet PO SCH (09:07)
[2018-10-31] MEDS: Cyanocobalamin (B-12) 1,000 MCG TABLET PO SCH (09:07)
[2018-10-31] MEDS: Topiramate 100 MG TABLET PO SCH ×2 (09:08→20:53)
[2018-10-31] MEDS: Insulin LISPRO 300 UNITS/3 ML VIAL SQ SCH ×4 (09:08→22:12)
--- NOTE | 2018-10-31 10:02 | EEG/EMG/Oth Biometrics Report ---
EEG Procedure Report EEG Procedure: Routine EEG Procedure Note: This is a routine STAT 21 channel digital EEG performed utilizing 10- 20 international electrode placement system. Patient who is awake but confused and has a history of seizures FINDINGS: Patient has a predominant waking background frequency that is average voltage 4 to 8 Hertz theta activity in the posterior region, decrease amplitude symmetrical over the both hemispheres reactive to eyes opening and closing record continued to show theta mixed with alpha activity intermixed with some theta off and on, no abnormal activity recorded, predominantly no evidence of any spike wave discharges or any lateralizing abnormalities, Photic stimulation did not produce any convulsive response. Intermittent EMG artifacts were noted. Stage II sleep was not achieved. Intermittent triphasic waves noted throughout the study nonspecific pattern but mostly seen in patient with liver and renal dysfunction Impression: Abnormal awake drowsy electroencephalogram. Mild slowing is a nonspecific pattern could be seen in patient with metabolic toxic encephalopathy at the same time could be seen with postictal state, intermittent triphasic waves noted that she usually seen in patient with liver and renal dysfunction, No epileptiform discharges were noted, clinical correlation suggested
[2018-10-31] MEDS ORDERED: Acetaminophen 325 MG TABLET PO PRN (11:18)
[2018-10-31] MEDS ORDERED: Acetaminophen 325 MG TABLET PO ONE (11:27)
--- NOTE | 2018-10-31 15:43 | Internal Med Progress Note ---
Hospitalist Progress Note - Encounter Date of Encounter: 10/31/18 Time of Encounter: 15:40 - Subjective Interval History: No active seizure. Patient appeared confused in the morning but seems like better now. Sitter at bedside. Review the lab. Reviewed the neurologist note. Patient denies fever chills nausea vomiting headache dizziness chest pain short of breath cough abdominal pain urinary or bowel complaint - Exam Vitals: Temp Pulse Resp BP Pulse Ox 97.5 F L 78 16 137/88 97 10/31/18 12:34 10/31/18 12:34 10/31/18 12:34 10/31/18 12:34 10/31/18 12:34 Exam: General: well developed, well nourished male in no acute distress Head: normocephalic and atraumatic Eyes: PERRL, EOMI, sclera anicteric, conjunctiva pink Neck: supple Lungs: CTA bilaterally. Heart: RRR +s1 +S2. no murmurs, clicks, or rubs GI: abdomen soft, reportedly non-tender, positive bowel sounds Extremities: warm, peripheral pulses palpable and symmetrical. no edema or cyanosis Neuro: Alert awake oriented to time place person. slowly speech but understandable. Motor 5 x 5 in all 4 extremities. Gait normal. Skin: warm, dry, intact - Assessment and Plan (1) Seizure disorder Current Visit: Yes Status: Chronic Assessment and Plan: Patient was on Topamax and Trileptal at home. Neurologist consulted. EEG done with finding suggestive of post ictal status or toxic encephalopathy. MRI brain with and without contrast ordered. Continue home dose of Topamax. Seizure prec aution. Discharge plan as per neuro advice (2) Acute metabolic encephalopathy Current Visit: Yes Status: Acute Assessment and Plan: Likely 2/2 cirrhosis with elevated ammonia, elevated INR, and slightly decreased platelets as seen on admission. Trending down ammonia level. Continue lactulose. Will consult GI if needed (3) DM type 2 (diabetes mellitus, type 2) Current Visit: No Status: Chronic Assessment and Plan: Hx of DM2 Hold home metformin during admission SSI (4) HTN (hypertension) Current Visit: No Status: Chronic Assessment and Plan: Well controlled. Continue to monitor. Continue home meds (5) DVT prophylaxis Current Visit: Yes Status: Acute Assessment and Plan: EPCDs Deferring chemical prophylaxis at this time since pt has elevated INR not on AC related to cirrhosis - Time Spent with Patient Total time spent is greater than 50% in coordination of care (as documented) at patient's floor/unit and/or counseling patient: 25 - 35 minutes Plan of Care Discussed with: patient Internal Medicine: Result - Labs CBC & Chem 7: 10/29/18 01:27 10/31/18 05:17 Labs: BMP 10/31/18 05:17 Sodium 141 Potassium 3.3 L Chloride 113 H Carbon Dioxide 20 L BUN 9 Creatinine 0.76 Glucose 132 H Calcium 8.7 Cardiac Enzymes 10/30/18 Range/Units 17:53 Troponin I < 0.03 (< 0.04) ng/mL Liver Function 10/31/18 Range/Units 05:17 Total Bilirubin 1.5 H (0.3-1.0) mg/dL AST 16 (13-39) Units/L ALT 12 (7-52) Units/L Alkaline Phosphatase 63 (34-104) Units/L Albumin 4.0 (3.5-5.7) g/dL - ABG Interpretation ABG results: PT/INR, D-dimer PT 16.5 Seconds (9.4-12.1) H 10/29/18 01:27 Consult Discharge Plan - Plan Referrals: Henri Montejo DO [Partnered Physician] - 11/16/18 4:00 pm (3) DM type 2 (diabetes mellitus, type 2) Qualifiers: Diabetes mellitus jail insulin use: without jail use Diabetes mellitus complication status: without complication Qualified Code(s): E11.9 - Type 2 diabetes mellitus without complications (4) HTN (hypertension) Qualifiers: Hypertension type: essential hypertension Qualified Code(s): I10 - Essential (primary) hypertension
--- NOTE | 2018-10-31 16:56 | Electrocardiograph Report ---
[address] [place], [place] [address] Test Date: 2018-10-30 Pat Name: Gutierrez Carreon Department: 115 Room: 3A31 Gender: M Fagoter: : 1975 Requested By: Reynaldo Dukes Order Number: [id number] Reading MD: Vane Onofre Measurements Intervals [place] Rate: 65 P: 7 AL: 132 QRS: 21 QRSD: 94 T: -3 QT: 429 QTc: 441 Interpretive Statements SINUS RHYTHM NONSPECIFIC ST AND T ABNORMALITIES BASELINE ARTIFACT RECOMMEND REPEATING ECG Electronically Signed On 10-31-2018 16:54:40 EST by Vane Onofre
[2018-10-31] MEDS: OXcarbazepine 150 MG TABLET PO SCH (20:51)
[2018-11-01 04:56] LABS: Basophils # 0.1 K/mcL (0.0-0.2); Basophils % 1.6 %; Eosinophils # 0.3 K/mcL (0.0-0.6); Eosinophils % 2.9 %; Hemoglobin 15.4 g/dL (12.9-16.9); Immature Granulocytes % 0.2 % (0-4); Lymphocytes # 3.9 K/mcL (0.6-4.6); Lymphocytes % 44.9 %; Mean Corpuscular Hemoglobin 30.7 pg (28.0-33.3); Mean Corpuscular Volume 87.6 fL (83.0-100.0); Mean Platelet Volume 11.1 fL (9.4-12.4); Monocytes # 0.7 K/mcL (0.0-1.3); Monocytes % 8.3 %; Neutrophils # 3.6 K/mcL (1.6-8.9); Platelet Count 146 K/mcL (140-400); Red Blood Count 5.02 M/mcL (4.19-5.50); Red Cell Distribution Width 13.9 % (11.5-14.5); Segmented Neutrophils % 42.1 %
[2018-11-01 05:16] LABS: BUN/Creatinine Ratio 10 (6-26); Blood Urea Nitrogen 8 mg/dL (6-20); Carbon Dioxide 20 mEq/L (23-29); Chloride 112 mEq/L (98-107); Glucose 118 mg/dL (70-105); Osmolality,Calculated 289 (280-300); Potassium 3.7 mEq/L (3.5-5.1); Sodium 140 mEq/L (136-145); eGFR For Non-African Americans > 60 (> 60)
[2018-11-01] MEDS: Insulin LISPRO 300 UNITS/3 ML VIAL SQ SCH ×4 (07:42→21:01)
--- NOTE | 2018-11-01 08:17 | Neurology Progress Note ---
Addendum entered and electronically signed by Gilbert Garcia MD 11/09/18 09:41: Gilbert Garcia MD Addendum entered and electronically signed by Peewee Alvarado DO 11/02/18 10:46: This addendum serves as my signature for this progress note. Original Note: <Peewee Alvarado - Last Filed: 11/01/18 08:10> Date of Encounter: 11/01/18 Time of Encounter: 08:10 Assessment and Plan (1) Seizure disorder Current Visit: Yes Status: Chronic Patient with a history of seizures and stroke who was admitted with dizziness, mental status changes, and elevated level of ammonia that might be contributing to his abnormal mentation. No focal findings on exam but certainly mental status changes continued EEG revealed abnormal awake drowsy electroencephalogram. Mild slowing is a nonspecific pattern could be seen in patient with metabolic toxic encephalopathy at the same time could be seen with postictal state, intermittent triphasic waves noted. MRI brain revealed no acute intracranial abnormality with stable right temporal encephalomalacia in keeping with sequela of prior infarct. Continue home dose Oxcarbaxepine and Topamax home dose 150 mg BID. Continue treatment to decrease his ammonia level and if he continued to be symptomatic even after decreasing the ammonia we may need to adjust his medications. Continue seizure precautions. If all workup is negative perhaps we may need to do a spinal tap to exclude any intracranial WELFARE ADMINISTRATOR infection, though at the moment he does have other causes for mental status changes (2) Acute metabolic encephalopathy Current Visit: Yes Status: Acute Ammonia level decreased since admission, patient remains on lactulose. (3) History of CVA (cerebrovascular accident) Current Visit: No Status: Chronic CT brain revealed no acute intracranial abnormality and old right MCA infarct. MRI brain revealed no acute intracranial abnormality with stable right temporal encephalomalacia in keeping with sequela of prior infarct. Continue Aspirin and statin (4) HTN (hypertension) Current Visit: No Status: Chronic Qualifiers: Hypertension type: essential hypertension Qualified Code(s): I10 - Essential (primary) hypertension (5) DM type 2 (diabetes mellitus, type 2) Current Visit: No Status: Chronic Qualifiers: Diabetes mellitus halfway insulin use: without long term care phlebotomist use Diabetes mellitus complication status: without complication Qualified Code(s): E11.9 - Type 2 diabetes mellitus without complications Subjective Principal diagnosis: Seizure Interval history: Patient seen and examined resting comfortably in bed. Patient had performed MRI yesterday. Objective - Constitutional Vitals: Temp Pulse Resp BP Pulse Ox 98.0 F 62 14 139/90 97 11/01/18 07:11 11/01/18 07:11 11/01/18 07:11 11/01/18 07:11 11/01/18 07:11 - Neurological Exam Sensorimotor examination: Present: intact, pronator drift Motor Examination: Present: grossly full strength in all extremities, full strength in all major muscle groups Motor examination - left side: 5/5: deltoids, biceps, triceps, wrist flexion, wrist extension, hip flexors, rag sorter and cutter, quadriceps, tibialis Anterior, toe extension (EHL), plantarflexion Sensation intact: Present: intact, light touch Reflex and gait examination: intact Mental Status Examination: Present: awake, alert, oriented to person, oriented to place, oriented to time, follows commands appropriately, answers questions appropriately, no agnosia, no aphasia, no aproxia, follows simple commands Cranial nerve examination: Present: PERRL, EOMI, visual maravilla intact, sensory to face intact, mastication intact, no facial asymmetry is present, no dysarthria, flexes SCM and trapezius muscles symmetrically with full power, tongue protrudes midline, no atrophy or facial fasiculations present Cerebellar examination: Present: no dysmetria, performs finger to nose and heel to brower symmetrically without ataxia, no gait ataxia, no truncal ataxia, no difficulty with rapid alternating movements Results - Laboratory Findings CBC and BMP: 11/01/18 04:43 11/01/18 04:43 Abnormal lab findings: Abnormal lab results PT 16.5 Seconds (9.4-12.1) H 10/29/18 01:27 Chloride 112 mEq/L (98-107) H 11/01/18 04:43 Carbon Dioxide 20 mEq/L (23-29) L 11/01/18 04:43 Glucose 118 mg/dL (70-105) H 11/01/18 04:43 POC Glucose 107 mg/dL (70-99) H 10/31/18 16:04 Phosphorus 2.4 mg/dL (2.7-4.5) L 10/29/18 01:27 Total Bilirubin 1.5 mg/dL (0.3-1.0) H 10/31/18 05:17 Direct Bilirubin 0.7 mg/dL (0.0-0.2) H 10/28/18 14:50 Indirect Bilirubin 1.3 mg/dL (0.0-1.2) H 10/28/18 14:50 Ammonia 57 mcmol/L (16-53) H 11/01/18 04:43 Globulin 3.9 g/dL (2.4-3.5) H 10/31/18 05:17 Albumin/Globulin Ratio 1.0 (1.1-2.2) L 10/31/18 05:17 Urine Ketones Trace mg/dL (Negative) H 10/28/18 18:12 Urine Bilirubin Small (Negative) H 10/28/18 18:12 Ur Leukocyte Esterase Small (Negative) H 10/28/18 18:12 Ur Squamous Epith Cells Moderate per lpf (None-Few) H 10/28/18 18:12 Consult Discharge Plan - Plan Referrals: Henri Montejo DO [Partnered Physician] - 11/16/18 4:00 pm <Gilbert Garcia I - Last Filed: 11/01/18 15:43> Date of Encounter: 11/01/18 Assessment and Plan (1) Seizure disorder Current Visit: Yes Status: Chronic Pt was seen and examined, my medical decision was reviewed with the Resident Physician, I agree with the documented findings, disposition and treatment plas as described except to the extent set forth below No more clinical seizures continued to have fluctuating mental status ammonia level though is decreased but is still elevated. No sign of WELFARE ADMINISTRATOR infection Perhaps could be related to the medication we will try to cut down antiepileptics or may need to change to a different agent if he continued to h ave these fluctuating confusion no evidence of seizures on EEG Gilbert Garcia MD Objective - Constitutional Vitals: Temp Pulse Resp BP Pulse Ox 98.1 F 80 18 138/82 96 11/01/18 11:52 11/01/18 11:52 11/01/18 11:52 11/01/18 11:52 11/01/18 11:52 Results - Laboratory Findings CBC and BMP: 11/01/18 04:43 11/01/18 04:43 Abnormal lab findings: Abnormal lab results PT 16.5 Seconds (9.4-12.1) H 10/29/18 01:27 Chloride 112 mEq/L (98-107) H 11/01/18 04:43 Carbon Dioxide 20 mEq/L (23-29) L 11/01/18 04:43 Glucose 118 mg/dL (70-105) H 11/01/18 04:43 POC Glucose 107 mg/dL (70-99) H 10/31/18 16:04 Phosphorus 2.4 mg/dL (2.7-4.5) L 10/29/18 01:27 Total Bilirubin 1.4 mg/dL (0.3-1.0) H 11/01/18 09:07 Direct Bilirubin 0.5 mg/dL (0.0-0.2) H 11/01/18 09:07 Ammonia 57 mcmol/L (16-53) H 11/01/18 04:43 Globulin 4.0 g/dL (2.4-3.5) H 11/01/18 09:07 Albumin/Globulin Ratio 1.0 (1.1-2.2) L 11/01/18 09:07 Urine Ketones Trace mg/dL (Negative) H 10/28/18 18:12 Urine Bilirubin Small (Negative) H 10/28/18 18:12 Ur Leukocyte Esterase Small (Negative) H 10/28/18 18:12 Ur Squamous Epith Cells Moderate per lpf (None-Few) H 10/28/18 18:12
[2018-11-01] MEDS: OXcarbazepine 150 MG TABLET PO SCH ×2 (09:08→20:46)
[2018-11-01] MEDS: Cyanocobalamin (B-12) 1,000 MCG TABLET PO SCH (09:08)
[2018-11-01] MEDS: Lactulose Oral Soln 20 GM/30 ML UDC PO SCH ×2 (09:08→20:47)
[2018-11-01] MEDS: Aspirin Enteric Coated 81 MG Tablet PO SCH (09:08)
[2018-11-01] MEDS: Topiramate 100 MG TABLET PO SCH ×2 (09:09→20:47)
[2018-11-01 09:42] LABS: Albumin 4.1 g/dL (3.5-5.7); Bilirubin,Direct 0.5 mg/dL (0.0-0.2); Bilirubin,Indirect 0.9 mg/dL (0.0-1.2); Bilirubin,Total 1.4 mg/dL (0.3-1.0); Total Protein 8.1 g/dL (6.4-8.9)
--- NOTE | 2018-11-01 10:15 | Gastroenterology Consult Note ---
<Nain Grider - Last Filed: 11/01/18 10:06> Date of Encounter: 11/01/18 Time of Encounter: 09:20 - Assessment and plan (1) Acute metabolic encephalopathy Current Visit: Yes Status: Acute Assessment and plan: On admission platelets 138, ammonia 95, TB 2, DB 0.7, indirect bili 1.3, AST 16, ALT 15, alk phos 77. Today platelets 146, ammonia 57, TB 1.4, DB 0.5, indirect bili 0.9, AST 19, ALT 14, alk phos 70. RUQ US showed mild hepatomegaly with diffuse fatty liver and trace gallbladder sludge. Complete liver work up: AFP, alpha-1 antitrypsin, ABDIRAHMAN, ceruloplasmin, F actin, ferritin, hepatitis profile, AMA. Continue to treat encephalopathy with Lactulose, titrate for 2-4 BMs daily. Follow up with GI as outpatient for EGD for variceal screening. Lifestyle Changes: 1. Total abstinence from alcohol including social drinking. 2. No smoking. 3. Gradual loss of weight. 4. Drink at least 3 cups of coffee due to its antioxidant effects in the liver, it reduces risk of HCC and advance fibrosis. 5. If needed, use less than 2 g/day of Tylenol (in divided doses). 6. Vaccination for Hep A, B, Pneumococcus if not already received and yearly influenza vaccination by PCP. 7. Avoid NSAIDS as can cause kidney damage. 8. Avoid benzodiazepines and other sedatives such as anti-histamines, narcotics etc. as can cause encephalopathy or confusion. 9. Take a late carbohydrate meal supplement as it reduces glucose production from protein breakdown and thus improves nutrition. 10. In cirrhosis, statins are safe to use and also improve portal hypertension and decrease risk of HCC. 11. Screening: Hepatocellular cancer screening: US of liver and AFP every 6 months - Time Spent With Patient Total time spent is greater than 50% in coordination of care (as documented) at patient's floor/unit and/or counseling patient: GI History of Present Illness - Data of Consult Patient: new to practice Consult date: 11/01/18 Requesting Physician: Ernesto Rao MD - Consult Narrative Reason for consult: Possible cirrhosis, elevated ammonia and bili History of present illness: Mr. Carreon is a 43 year old male with PMHx of seizures, HTN, and DM who presented to the ED with altered mental status and seizure activity. During one seizure, he fell and hit his head on a glass table. n the ED, patient was found to have elevated ammonia level of [address] brain revealed no acute intracranial abnormality and old right MCA infarct. Of note, patient was recently admitted in June 2018 with a similar presentation. Patient was started on Topamax and Lactulose at that time family reports he has not missed any doses. Patient denies any alcohol or IV drug use. We were consulted to evaluate for possible cirrhosis. RUQ US showed mild hepatomegaly with diffuse fatty liver and trace gallbladder sludge. On admission, TB 2, DB 0.7, indirect bili 1.3, AST 16, ALT 15, alk phos 77. Today, TB 1.4, DB 0.5, indirect bili 0.9, AST 19, ALT 14, alk phos 70. Procedures: None NSAIDs: ASA Anticoagulation: None Past Med Surg Social Fam HX - Past Medical History Medical history: diabetes, hypertension, seizures Psychiatric history: no psych history - Past Surgical History Surgical History: no surgical history Additional surgical history: EEG - Social History Smoking Status: Never smoker Smokeless Tobacco Status: No Alcohol use: none Drug use: none - Family History Father Living Status: Still Living Hx Family Neuromuscular Disorders: No Hx Family Neurologic Disorders: No Mother Living Status: Still Living Hx Family Neuromuscular Disorders: No Hx Family Neurologic Disorders: No - Gastrointestinal Gastrointestinal: Present: as per HPI - Constitutional Constitutional: as per HPI - EENT Eyes: as per HPI Ears: Present: as per HPI Nose, mouth and throat: Present: as per HPI - Cardiovascular Cardiovascular ROS: Present: as per HPI - Respiratory Respiratory IM: Present: as per HPI - Genitourinary Genitourinary: Absent: change in color, Urinary frequency - Neurological ROS Neurological GI: Present: as per HPI - Hematologic/Lymphatic Hematologic/Lymphatic pediatric: Present: as per HPI - Musculoskeletal Musculoskeletal ROS GI: Present: as per HPI - Integumentary Integumentary GI: Present: as per HPI - Psychiatric ROS Psychiatric GI: Present: as per HPI - Endocrine Endocrine IM: Present: as per HPI - Constitutional Vitals: Temp Pulse Resp BP Pulse Ox 98.0 F 62 14 139/90 97 11/01/18 07:11 11/01/18 07:11 11/01/18 07:11 11/01/18 07:11 11/01/18 09:26 General appearance: Present: cooperative, A&O X 3, no acute distress, answers questions appropriately - Head Head exam: Present: atraumatic, normocephalic - Eye Eye exam: Present: normal appearance, sclera anicteric - ENT ENT exam: Present: mucous membranes moist - Neck Neck exam general surgery: Present: normal inspection, trachea midline - Respiratory Respiratory exam: Present: CTAB. Absent: rales, rhonchi, wheezes - Cardiovascular Cardiovascular exam: Present: RRR, +S1, +S2 - GI/Abdominal GI/Abdominal exam: Present: soft, no peritoneal signs. Absent: distended, firm, guarding, tenderness - Rectal Rectal exam: Present: deferred - Extremities Exam Extremities exam: Present: warm - Neurological Exam Neurological exam: Present: no focal deficits - Psychiatric Psychiatric exam: Present: normal affect, normal mood - Skin Skin exam: Present: dry, intact, normal color, warm Results - Labs CBC & Chem 7: 11/01/18 04:43 11/01/18 04:43 Labs: Last Result Calcium 9.0 mg/dL (8.6-10.3) 11/01/18 04:43 Troponin I < 0.03 ng/mL (< 0.04) 10/30/18 17:53 Urine Opiates Screen Negative ng/mL (Hwmtrs=059) 10/28/18 18:12 Entire Visit Hgb 15.4 g/dL (12.9-16.9) 11/01/18 04:43 Hct 44.0 % (37.5-50.1) 11/01/18 04:43 PT 16.5 Seconds (9.4-12.1) H 10/29/18 01:27 Total Bilirubin 1.4 mg/dL (0.3-1.0) H 11/01/18 09:07 AST 19 Units/L (13-39) 11/01/18 09:07 ALT 14 Units/L (7-52) 11/01/18 09:07 Ammonia 57 mcmol/L (16-53) H 11/01/18 04:43 - ABG ABG results: PT/INR, D-dimer PT 16.5 Seconds (9.4-12.1) H 10/29/18 01:27 - Impressions Impressions Brain MRI 10/31/18 08:47 IMPRESSION: 1. Motion limited evaluation. 2. No acute intracranial abnormality. 3. Stable right temporal encephalomalacia in keeping with sequela of prior infarct. D/ / Satya Ozuna / Satya Ozuna Interpreting Provider: Satya Ozuna Consult Discharge Plan - Plan Referrals: Henri Montejo DO [Partnered Physician] - 11/16/18 4:00 pm <Teagan Stevenson - Last Filed: 11/01/18 17:36> Date of Encounter: 11/01/18 Time of Encounter: 14:00 - Time Spent With Patient Total time spent is greater than 50% in coordination of care (as documented) at patient's floor/unit and/or counseling patient: GI History of Present Illness - Data of Consult Requesting Physician: Ernesto Rao MD - Consult Narrative History of present illness: Mr. Carreon is a 43 year old male - Constitutional Vitals: Temp Pulse Resp BP Pulse Ox 98.7 F 71 18 119/79 96 11/01/18 16:48 11/01/18 16:48 11/01/18 16:48 11/01/18 16:48 11/01/18 16:48 Results - Labs CBC & Chem 7: 11/01/18 04:43 11/01/18 04:43 Labs: Last Result Calcium 9.0 mg/dL (8.6-10.3) 11/01/18 04:43 Ferritin 168 ng/mL (20-250) 11/01/18 09:07 Troponin I < 0.03 ng/mL (< 0.04) 10/30/18 17:53 Urine Opiates Screen Negative ng/mL (Ujstgg=563) 10/28/18 18:12 Entire Visit Hgb 15.4 g/dL (12.9-16.9) 11/01/18 04:43 Hct 44.0 % (37.5-50.1) 11/01/18 04:43 PT 16.5 Seconds (9.4-12.1) H 10/29/18 01:27 Ferritin 168 ng/mL (20-250) 11/01/18 09:07 Total Bilirubin 1.4 mg/dL (0.3-1.0) H 11/01/18 09:07 AST 19 Units/L (13-39) 11/01/18 09:07 ALT 14 Units/L (7-52) 11/01/18 09:07 Ammonia 57 mcmol/L (16-53) H 11/01/18 04:43 - ABG ABG results: PT/INR, D-dimer PT 16.5 Seconds (9.4-12.1) H 10/29/18 01:27 - Impressions Impressions Brain MRI 10/31/18 08:47 IMPRESSION: 1. Motion limited evaluation. 2. No acute intracranial abnormality. 3. Stable right temporal encephalomalacia in keeping with sequela of prior infarct. D/ / Satya Ozuna / Satya Ozuna Interpreting Provider: Satya Ozuna - Attending Attestation I have personally performed a face to face evaluation on this patient. I have reviewed and agree with the care plan. History and Exam by me shows: Pt seen. O/E Eyes closed but open to verbal commond. A: pt with post SZ encepahlopathy with elevated NH3 and fatty liver. Rec: Lactulose and titrate to have 2-3 BMs a day
[2018-11-01 10:25] LABS: Hepatitis A Antibody IgM Nonreactive (Nonreactive); Hepatitis B Core IgM Nonreactive (Nonreactive); Hepatitis B Surface Antigen Nonreactive (Nonreactive); Hepatitis C Virus Antibody Nonreactive (Nonreactive)
--- NOTE | 2018-11-01 13:11 | Internal Med Progress Note ---
Hospitalist Progress Note - Encounter Date of Encounter: 11/01/18 Time of Encounter: 13:09 - Subjective Interval History: No active seizure. Patient still has intermittent confusion and seems like more confusion the night. In morning he was oriented to self but not place and time. Patient is communicating but with slow speech. Had 3-4 bowel movement yesterday. Sitter at bedside. Reviewed the lab. Patient denies fever chills nausea vomiting headache chest pain short of breath cough abdominal pain urinary or bowel complaint - Exam Vitals: Temp Pulse Resp BP Pulse Ox 98.1 F 80 18 138/82 96 11/01/18 11:52 11/01/18 11:52 11/01/18 11:52 11/01/18 11:52 11/01/18 11:52 Exam: General: well developed, well nourished male in no acute distress Head: normocephalic and atraumatic Eyes: PERRL, EOMI, sclera anicteric, conjunctiva pink Neck: supple Lungs: CTA bilaterally. Heart: RRR +s1 +S2. no murmurs, clicks, or rubs GI: abdomen soft, reportedly non-tender, positive bowel sounds Extremities: Peripheral pulses palpable Neuro: Sleepy but arousable. Oriented to self. slowly speech but understandable. Motor 5 x 5 in all 4 extremities. Skin: warm, dry, intact - Assessment and Plan (1) Seizure disorder Current Visit: Yes Status: Chronic Assessment and Plan: History of seizures and a stroke. Patient was on Topamax and Trileptal at home. witnessed active seizure during stay therefore neurologist consulted. EEG done with finding suggestive of post ictal status or toxic encephalopathy. MRI brain with and without contrast with no acute finding but is stable right temporal encephalomalacia in keeping with sequela of ifarct . Neurologist recommended to continue home dose of Topamax. Seizure precaution. continue treatment to decrease his ammonia level. If all workup is negative and possible spinal tap to exclude any intracranial YARDAGE CONTROL OPERATOR FORMING infection. (2) Acute metabolic encephalopathy Current Visit: Yes Status: Acute Assessment and Plan: with elevated ammonia, elevated INR, and slightly decreased platelets as seen on admission. Trending down ammonia level. Continue lactulose as needed to titrate bowel movement 2-4 per day. Consulted GI specialist who did order complete liver workup-AFP, alpha-1 antitrypsin, ABDIRAHMAN, ceruloplasmin, F actin, ferritin, hepatitis profile, AMA and advised to follow GI as outpatient for ECT for variceal screening. (3) Fatty liver Current Visit: Yes Status: Acute Assessment and Plan: Ultrasound liver with finding of gallbladder sludge with slight elevated total bilirubin. Consulted GI specialist for further evaluation especially with high ammonia level and questionable underlying cirrhosis. Please see above for his recommendation. (4) HTN (hypertension) Current Visit: No Status: Chronic Assessment and Plan: Well controlled. Continue to monitor. Continue home meds (5) DM type 2 (diabetes mellitus, type 2) Current Visit: No Status: Chronic Assessment and Plan: Hx of DM2. Well-controlled blood glucose level. Hold home metformin during admission SSI (6) DVT prophylaxis Current Visit: Yes Status: Acute Assessment and Plan: EPCDs (7) Goals of care, counseling/discussion Current Visit: Yes Status: Acute Assessment and Plan: Will follow with the neurologist recommendation. I will also talk to his family to update his condition and also find more information about him. 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 - Time Spent with Patient Total time spent is greater than 50% in coordination of care (as documented) at patient's floor/unit and/or counseling patient: 25 - 35 minutes Plan of Care Discussed with: nurse Internal Medicine: Result - Labs CBC & Chem 7: 11/01/18 04:43 11/01/18 04:43 Labs: Short CBC 11/01/18 Range/Units 04:43 WBC 8.6 (4.3-11.1) K/mcL Hgb 15.4 (12.9-16.9) g/dL Hct 44.0 (37.5-50.1) % Plt Count 146 (140-400) K/mcL Neutrophils # 3.6 (1.6-8.9) K/mcL BMP 11/01/18 04:43 Sodium 140 Potassium 3.7 Chloride 112 H Carbon Dioxide 20 L BUN 8 Creatinine 0.81 Glucose 118 H Calcium 9.0 Liver Function 11/01/18 Range/Units 09:07 Total Bilirubin 1.4 H (0.3-1.0) mg/dL Direct Bilirubin 0.5 H (0.0-0.2) mg/dL AST 19 (13-39) Units/L ALT 14 (7-52) Units/L Alkaline Phosphatase 70 (34-104) Units/L Albumin 4.1 (3.5-5.7) g/dL - ABG Interpretation ABG results: PT/INR, D-dimer PT 16.5 Seconds (9.4-12.1) H 10/29/18 01:27 - Impressions Impressions Brain MRI 10/31/18 08:47 IMPRESSION: 1. Motion limited evaluation. 2. No acute intracranial abnormality. 3. Stable right temporal encephalomalacia in keeping with sequela of prior infarct. D/ / Satya Ozuna / Satya Ozuna Interpreting Provider: Satya Ozuna Consult Discharge Plan - Plan Referrals: Henri Montejo DO [Partnered Physician] - 11/16/18 4:00 pm (4) HTN (hypertension) Qualifiers: Hypertension type: essential hypertension Qualified Code(s): I10 - Essential (primary) hypertension (5) DM type 2 (diabetes mellitus, type 2) Qualifiers: Diabetes mellitus roasterman insulin use: without alf use Diabetes mellitus complication status: without complication Qualified Code(s): E11.9 - Type 2 diabetes mellitus without complications
[2018-11-02] MEDS: Insulin LISPRO 300 UNITS/3 ML VIAL SQ SCH ×4 (08:35→20:14)
[2018-11-02] MEDS: Topiramate 100 MG TABLET PO SCH ×2 (08:37→20:08)
[2018-11-02] MEDS: Lactulose Oral Soln 20 GM/30 ML UDC PO SCH ×2 (08:38→20:09)
[2018-11-02] MEDS: OXcarbazepine 150 MG TABLET PO SCH ×2 (08:39→20:09)
[2018-11-02] MEDS: Cyanocobalamin (B-12) 1,000 MCG TABLET PO SCH (08:40)
[2018-11-02] MEDS: Aspirin Enteric Coated 81 MG Tablet PO SCH (08:40)
--- NOTE | 2018-11-02 08:44 | Neurology Progress Note ---
<Peewee Alvarado - Last Filed: 11/02/18 08:42> Date of Encounter: 11/02/18 Time of Encounter: 08:42 Assessment and Plan (1) Seizure disorder Current Visit: Yes Status: Chronic Patient with a history of seizures and stroke who was admitted with dizziness, mental status changes, and elevated level of ammonia that might be contributing to his abnormal mentation. EEG revealed abnormal awake drowsy electroencephalogram. Mild slowing is a nonspecific pattern could be seen in patient with metabolic toxic encephalopathy at the same time could be seen with postictal state, intermittent triphasic waves noted. MRI brain revealed no acute intracranial abnormality with stable right temporal encephalomalacia in keeping with sequela of prior infarct. Continue home dose Oxcarbaxepine and Topamax home dose 150 mg BID. Continue seizure precautions. No focal findings on exam but certainly mental status much improved today. Continue physical therapy. Recommend outpatient neurology follow-up. (2) Acute metabolic encephalopathy Current Visit: Yes Status: Acute Ammonia level 57 today, patient remains on lactulose. (3) History of CVA (cerebrovascular accident) Current Visit: No Status: Chronic CT brain revealed no acute intracranial abnormality and old right MCA infarct. MRI brain revealed no acute intracranial abnormality with stable right temporal encephalomalacia in keeping with sequela of prior infarct. Continue Aspirin and statin Physical therapy consulted (4) HTN (hypertension) Current Visit: No Status: Chronic Qualifiers: Hypertension type: essential hypertension Qualified Code(s): I10 - Essential (primary) hypertension (5) DM type 2 (diabetes mellitus, type 2) Current Visit: No Status: Chronic Qualifiers: Diabetes mellitus nursing home insulin use: without nursing home use Diabetes mellitus complication status: without complication Qualified Code(s): E11.9 - Type 2 diabetes mellitus without complications Subjective Principal diagnosis: Seizure Interval history: Patient seen and examined resting comfortably in bed. Patient's mental status has returned to baseline and he has been ambulating to the bathroom with assistance. Patient will continue to work with physical therapy today. Ammonia level was 57 today. Objective - Constitutional Vitals: Temp Pulse Resp BP Pulse Ox 97.3 F L 67 15 116/75 97 11/02/18 07:44 11/02/18 07:44 11/02/18 07:44 11/02/18 07:44 11/02/18 08:28 General appearance: Present: cooperative, A&O X 3, no acute distress, answers questions appropriately - Head Head exam: Present: atraumatic, normocephalic - Eye Eye exam: Present: EOMI, PERRL, conjuntiva pink, sclera anicteric Pupils: Present: PERRL - Extremities Exam Extremities exam: Present: warm, radial pulses palpable and symmetrical. Absent: calf tenderness, cyanotic, pedal edema - Neurological Exam Sensorimotor examination: Present: intact, pronator drift Motor Examination: Present: grossly full strength in all extremities, full strength in all major muscle groups Motor examination - right side: 4/5: hip flexors, tibialis Anterior, quadriceps, toe extension (EHL), plantarflexion, 5/5: deltoids, biceps, triceps, wrist flexion, wrist extension, remote encoding center manager Motor examination - left side: 5/5: deltoids, biceps, triceps, wrist flexion, wrist extension, hip flexors, remote encoding center manager, quadriceps, tibialis Anterior, toe extension (EHL), plantarflexion Sensation intact: Present: intact, light touch Reflex and gait examination: intact Reflexes: Biceps: 2+, Triceps: 2+, Brachioradialis: 2+, Patella: 2+, Achilles: 2+ Mental Status Examination: Present: awake, alert, oriented to person, oriented to place, oriented to time, follows commands appropriately, answers questions appropriately, no agnosia, no aphasia, no aproxia Cranial nerve examination: Present: PERRL, EOMI, visual maravilla intact, sensory to face intact, mastication intact, no facial asymmetry is present, no dysarthria, flexes SCM and trapezius muscles symmetrically with full power, tongue protrudes midline, no atrophy or facial fasiculations present Cerebellar examination: Present: no dysmetria, performs finger to nose and heel to brower symmetrically without ataxia, no gait ataxia, no truncal ataxia, no difficulty with rapid alternating movements Results - Laboratory Findings CBC and BMP: 11/01/18 04:43 11/01/18 04:43 Abnormal lab findings: Abnormal lab results PT 16.5 Seconds (9.4-12.1) H 10/29/18 01:27 Chloride 112 mEq/L (98-107) H 11/01/18 04:43 Carbon Dioxide 20 mEq/L (23-29) L 11/01/18 04:43 Glucose 118 mg/dL (70-105) H 11/01/18 04:43 POC Glucose 119 mg/dL (70-99) H 11/01/18 16:47 Phosphorus 2.4 mg/dL (2.7-4.5) L 10/29/18 01:27 Total Bilirubin 1.4 mg/dL (0.3-1.0) H 11/01/18 09:07 Direct Bilirubin 0.5 mg/dL (0.0-0.2) H 11/01/18 09:07 Ammonia 57 mcmol/L (16-53) H 11/01/18 04:43 Globulin 4.0 g/dL (2.4-3.5) H 11/01/18 09:07 Albumin/Globulin Ratio 1.0 (1.1-2.2) L 11/01/18 09:07 Urine Ketones Trace mg/dL (Negative) H 10/28/18 18:12 Urine Bilirubin Small (Negative) H 10/28/18 18:12 Ur Leukocyte Esterase Small (Negative) H 10/28/18 18:12 Ur Squamous Epith Cells Moderate per lpf (None-Few) H 10/28/18 18:12 Consult Discharge Plan - Plan Referrals: Henri Montejo DO [Partnered Physician] - 11/16/18 4:00 pm <Gilbert Garcia I - Last Filed: 11/02/18 14:31> Date of Encounter: 11/02/18 Assessment and Plan (1) Seizure disorder Current Visit: Yes Status: Chronic Pt was seen and examined, my medical decision was reviewed with the Resident Physician, I agree with the documented findings, disposition and treatment plas as described except to the extent set forth below. Patient seems to be improving Suggest to continue on his current antiepileptic medications I really doubt that these AEDs of the cause of his higher ammonia level Seems to be back to his baseline Suggest physical therapy evaluation if is a stable enough it could be discharged with follow-up with neurology as an outpatient with Dr Christina Garcia MD Objective - Constitutional Vitals: Temp Pulse Resp BP Pulse Ox 99.4 F 81 21 144/88 95 11/02/18 11:06 11/02/18 11:06 11/02/18 11:06 11/02/18 11:06 11/02/18 11:06 Results - Laboratory Findings CBC and BMP: 11/01/18 04:43 11/01/18 04:43 Abnormal lab findings: Abnormal lab results PT 16.5 Seconds (9.4-12.1) H 10/29/18 01:27 Chloride 112 mEq/L (98-107) H 11/01/18 04:43 Carbon Dioxide 20 mEq/L (23-29) L 11/01/18 04:43 Glucose 118 mg/dL (70-105) H 11/01/18 04:43 POC Glucose 119 mg/dL (70-99) H 11/01/18 16:47 Phosphorus 2.4 mg/dL (2.7-4.5) L 10/29/18 01:27 Total Bilirubin 1.4 mg/dL (0.3-1.0) H 11/01/18 09:07 Direct Bilirubin 0.5 mg/dL (0.0-0.2) H 11/01/18 09:07 Ammonia 88 mcmol/L (16-53) H 11/02/18 11:49 Globulin 4.0 g/dL (2.4-3.5) H 11/01/18 09:07 Albumin/Globulin Ratio 1.0 (1.1-2.2) L 11/01/18 09:07 Urine Ketones Trace mg/dL (Negative) H 10/28/18 18:12 Urine Bilirubin Small (Negative) H 10/28/18 18:12 Ur Leukocyte Esterase Small (Negative) H 10/28/18 18:12 Ur Squamous Epith Cells Moderate per lpf (None-Few) H 10/28/18 18:12
--- NOTE | 2018-11-02 18:11 | Internal Med Progress Note ---
Hospitalist Progress Note - Encounter Date of Encounter: 11/02/18 Time of Encounter: 18:11 - Subjective Interval History: No active seizure. Patient is better oriented today but still get intermittent confusion during conversation. he was oriented to self and place but not time. Patient is communicating but with slow speech. Last bowel movement midnight when I asked patient in the morning. Sitter at bedside. Reviewed the lab with trending up ammonia. Patient denies fever chills nausea vomiting headache chest pain short of breath cough abdominal pain urinary or bowel complaint - Exam Vitals: Temp Pulse Resp BP Pulse Ox 99.4 F 81 21 144/88 95 11/02/18 11:06 11/02/18 11:06 11/02/18 11:06 11/02/18 11:06 11/02/18 11:06 Exam: General: well developed, well nourished male in no acute distress Head: normocephalic and atraumatic Eyes: PERRL, EOMI, sclera anicteric, conjunctiva pink Neck: supple Lungs: CTA bilaterally. Heart: RRR +s1 +S2. no murmurs, clicks, or rubs GI: abdomen soft, reportedly non-tender, positive bowel sounds Extremities: Peripheral pulses palpable Neuro: Alert awake. Takes time to recall the memory. Oriented to self. slowly speech but understandable. Motor 5 x 5 in all 4 extremities. Skin: warm, dry, intact - Assessment and Plan (1) Seizure disorder Current Visit: Yes Status: Chronic Assessment and Plan: History of seizures and a stroke. Patient was on Topamax and Trileptal at home. witnessed active seizure during stay therefore neurologist consulted. EEG done with finding suggestive of post ictal status or toxic encephalopathy. MRI brain with and without contrast with no acute finding but is stable right temporal encephalomalacia in keeping with sequela of ifarct . Neurologist recommended to continue home dose of Topamax. Seizure precaution. continue treatment to decrease his ammonia level. If all workup is negative then possible spinal tap to exclude any intracranial BALLISTICS TESTER infection but will let neurologist decide. Physiotherapy consulted. (2) Acute metabolic encephalopathy Current Visit: Yes Status: Acute Assessment and Plan: with elevated ammonia, elevated INR, and slightly decreased platelets as seen on admission. Trending up ammonia level. Therefore increase lactulose 40 mg 3 times a day to titrate bowel movement 2-4 per day. Consulted GI specialist who did order compl ete liver workup-AFP, alpha-1 antitrypsin, ABDIRAHMAN, ceruloplasmin, F actin, ferritin, hepatitis profile, AMA and advised to follow GI as outpatient EGD for variceal screening. Will reconsult GI if no further improvement in ammonia level. (3) Fatty liver Current Visit: Yes Status: Acute Assessment and Plan: Ultrasound liver with finding of gallbladder sludge with slight elevated total bilirubin. Consulted GI specialist for further evaluation especially with high ammonia level and questionable underlying cirrhosis. Please see above for his recommendation. (4) HTN (hypertension) Current Visit: No Status: Chronic Assessment and Plan: Well controlled. Continue to monitor. Continue home meds (5) DM type 2 (diabetes mellitus, type 2) Current Visit: No Status: Chronic Assessment and Plan: Hx of DM2. Well-controlled blood glucose level. Hold home metformin during admission SSI (6) DVT prophylaxis Current Visit: Yes Status: Acute Assessment and Plan: EPCDs (7) Goals of care, counseling/discussion Current Visit: Yes Status: Acute Assessment and Plan: Will follow with the neurologist recommendation. I will also talk to his family to update his condition and also find more information about him. pass worker on board. (8) Psychiatric disorder Current Visit: Yes Status: Acute Assessment and Plan: As per note patient has psychiatric disorder and seen by psychiatry in June 2018 and got treated with antipsychotic medicine. As per note he seems like that psychotic disorder was related with seizure event. Will consult psychiatrist once patient is medically stable and cleared by neurologist. At present patient is not homicidal or suicidal. Sitter at bedside. - Time Spent with Patient Total time spent is greater than 50% in coordination of care (as documented) at patient's floor/unit and/or counseling patient: 25 - 35 minutes Plan of Care Discussed with: patient Internal Medicine: Result - Labs CBC & Chem 7: 11/01/18 04:43 11/01/18 04:43 - ABG Interpretation ABG results: PT/INR, D-dimer PT 16.5 Seconds (9.4-12.1) H 10/29/18 01:27 Consult Discharge Plan - Plan Referrals: Henri Montejo, [Partnered Physician] - 11/16/18 4:00 pm _ (4) HTN (hypertension) Qualifiers: Hypertension type: essential hypertension Qualified Code(s): I10 - Essential (primary) hypertension (5) DM type 2 (diabetes mellitus, type 2) Qualifiers: Diabetes mellitus correction insulin use: without correction use Diabetes mellitus complication status: without complication Qualified Code(s): E11.9 - Type 2 diabetes mellitus without complications
[2018-11-03 03:24] LABS: Basophils # 0.1 K/mcL (0.0-0.2); Basophils % 1.5 %; Eosinophils # 0.2 K/mcL (0.0-0.6); Eosinophils % 2.4 %; Hematocrit 42.2 % (37.5-50.1); Hemoglobin 14.9 g/dL (12.9-16.9); Immature Granulocytes % 0.2 % (0-4); Lymphocytes # 3.6 K/mcL (0.6-4.6); Lymphocytes % 44.1 %; Mean Corpuscular HGB Conc 35.3 g/dL (31.6-35.5); Mean Corpuscular Hemoglobin 31.1 pg (28.0-33.3); Mean Corpuscular Volume 88.1 fL (83.0-100.0); Mean Platelet Volume 10.7 fL (9.4-12.4); Monocytes # 0.7 K/mcL (0.0-1.3); Neutrophils # 3.5 K/mcL (1.6-8.9); Platelet Count 135 K/mcL (140-400); Red Blood Count 4.79 M/mcL (4.19-5.50); Red Cell Distribution Width 13.8 % (11.5-14.5); Segmented Neutrophils % 42.8 %
[2018-11-03 03:44] LABS: Alanine Aminotransferase 17 Units/L (7-52); Albumin 3.7 g/dL (3.5-5.7); Albumin/Globulin Ratio 0.9 (1.1-2.2); Alkaline Phosphatase 70 Units/L (34-104); Aspartate Amino Transferase 22 Units/L (13-39); BUN/Creatinine Ratio 13 (6-26); Bilirubin,Direct 0.3 mg/dL (0.0-0.2); Bilirubin,Indirect 0.7 mg/dL (0.0-1.2); Blood Urea Nitrogen 11 mg/dL (6-20); Calcium 8.6 mg/dL (8.6-10.3); Carbon Dioxide 23 mEq/L (23-29); Chloride 109 mEq/L (98-107); Glucose 111 mg/dL (70-105); Osmolality,Calculated 290 (280-300); Potassium 3.5 mEq/L (3.5-5.1); Sodium 140 mEq/L (136-145); Total Protein 7.7 g/dL (6.4-8.9); eGFR For Non-African Americans > 60 (> 60)
[2018-11-03] MEDS: Insulin LISPRO 300 UNITS/3 ML VIAL SQ SCH ×4 (08:00→21:03)
[2018-11-03] MEDS ORDERED: Lidocaine -MPF 1% 5 ML AMPUL ONE ×2 (08:49→08:50)
[2018-11-03] MEDS ORDERED: Lidocaine -MPF 1% 5 ML AMPUL INFILT ONE (09:11)
--- NOTE | 2018-11-03 09:11 | Neurology Progress Note ---
<Peewee Alvarado - Last Filed: 11/03/18 11:31> Date of Encounter: 11/03/18 Time of Encounter: 09:10 Assessment and Plan (1) Acute metabolic encephalopathy Current Visit: Yes Status: Acute Patient with a history of seizures who was admitted with dizziness, mental status changes, and elevated level of ammonia which be contributing to his abnormal mentation. EEG revealed abnormal awake drowsy electroencephalogram. Mild slowing is a nonspecific pattern could be seen in patient with metabolic toxic encephalopathy at the same time could be seen with postictal state, intermittent triphasic waves noted. MRI brain revealed no acute intracranial abnormality with stable right temporal encephalomalacia in keeping with sequela of prior infarct. Patient's mental status has not returned to baseline according to his . His mental status waxes and wanes. Ammonia level is back down to 48 today, patient remains on lactulose. Lumbar puncture performed to r/o cause of encephalopathy. CSF results reviewed, normal cell count 3 with elevated WBC 10 - 25 on CSF culture, borderline high glucose, proteins are high which could be seen in prolonged immobilization. Findings do not appear consistent with bacterial meningitis. Will discuss results with pathologist. We may consider repeating an EEG based on clarified CSF results. (2) Seizure disorder Current Visit: Yes Status: Chronic Patient with a history of seizures and stroke who was admitted with dizziness, mental status changes, and elevated level of ammonia which be contributing to his abnormal mentation. EEG revealed abnormal awake drowsy electroencephalogram. Mild slowing is a nonspecific pattern could be seen in patient with metabolic toxic encephalopathy at the same time could be seen with postictal state, intermittent triphasic waves noted. Continue home dose Oxcarbaxepine and Topamax home dose 150 mg BID. Continue seizure precautions. We will consider repeating an EEG based on CSF results. (3) History of CVA (cerebrovascular accident) Current Visit: No Status: Chronic CT brain revealed no acute intracranial abnormality and old right MCA infarct. MRI brain revealed no acute intracranial abnormality with stable right temporal encephalomalacia in keeping with sequela of prior infarct. Continue Aspirin and statin Physical therapy consulted (4) HLD (hyperlipidemia) Current Visit: No Status: Chronic Lipid panel from June 2018 reviewed. Patient's reports Lipitor has caused him to be confused in the past. Statin therapy switched to Zocor instead. Qualifiers: Hyperlipidemia type: unspecified Qualified Code(s): E78.5 - Hyperlipidemia, unspecified (5) HTN (hypertension) Current Visit: No Status: Chronic Qualifiers: Hypertension type: essential hypertension Qualified Code(s): I10 - Essential (primary) hypertension (6) DM type 2 (diabetes mellitus, type 2) Current Visit: No Status: Chronic Qualifiers: Diabetes mellitus long-term insulin use: without long-term use Diabetes mellitus complication status: without complication Qualified Code(s): E11.9 - Type 2 diabetes mellitus without complications Subjective Principal diagnosis: Seizure Interval history: Patient seen and examined resting comfortably in bed. Patient's mental status has not returned to baseline according to his . His mental status waxes and wanes. Patient is disoriented to time this morning and does not remember why he is in the hospital. Ammonia level is back down to 48 today. Ramya QUINTANA and I spoke to patient's Zee over the phone this morning and obtained consent for lumbar puncture to r/o cause of encephalopathy. Objective - Constitutional Vitals: Temp Pulse Resp BP Pulse Ox 98.8 F 60 18 116/75 96 11/03/18 07:00 11/03/18 07:00 11/03/18 07:00 11/03/18 07:00 11/03/18 07:00 General appearance: Present: cooperative, A&O X 2 (disoriented to time), no acute distress, answers questions appropriately - Head Head exam: Present: atraumatic, normocephalic - Eye Eye exam: Present: PERRL, conjuntiva pink, sclera anicteric Pupils: Present: PERRL - Extremities Exam Extremities exam: Present: warm, radial pulses palpable and symmetrical. Absent: calf tenderness, cyanotic, pedal edema - Back Exam Back exam: Present: normal inspection. Absent: paraspinal tenderness, tenderness, vertebral tenderness - Neurological Exam Sensorimotor examination: Present: intact, pronator drift Motor Examination: Present: grossly full strength in all extremities, full strength in all major muscle groups Motor examination - right side: 5/5: deltoids, biceps, triceps, wrist flexion, wrist extension, art objects salesperson, hip flexors, tibialis Anterior, quadriceps, toe extension (EHL), plantarflexion Motor examination - left side: 5/5: deltoids, biceps, triceps, wrist flexion, wrist extension, hip flexors, art objects salesperson, quadriceps, tibialis Anterior, toe extension (EHL), plantarflexion Sensation intact: Present: intact, light touch Reflex and gait examination: intact Reflexes: Biceps: 1+, Triceps: 1+, Brachioradialis: 1+, Patella: 1+, Achilles: 1+ Mental Status Examination: Present: awake, alert, oriented to person, oriented to place, follows commands appropriately, answers questions appropriately, no agnosia, no aphasia, no aproxia, drowsy, follows simple commands, localizes noxious stimulation, inattentive. Absent: oriented to time Cranial nerve examination: Present: PERRL, EOMI, visual maravilla intact, sensory to face intact, mastication intact, no facial asymmetry is present, no dysarthria, flexes SCM and trapezius muscles symmetrically with full power, no atrophy or facial fasiculations present Cerebellar examination: Present: no dysmetria, performs finger to nose and heel to brower symmetrically without ataxia, no gait ataxia, no truncal ataxia, no difficulty with rapid alternating movements Results - Laboratory Findings CBC and BMP: 11/03/18 03:10 11/03/18 03:10 Abnormal lab findings: Abnormal lab results Plt Count 135 K/mcL (140-400) L 11/03/18 03:10 PT 16.5 Seconds (9.4-12.1) H 10/29/18 01:27 Chloride 109 mEq/L (98-107) H 11/03/18 03:10 Glucose 111 mg/dL (70-105) H 11/03/18 03:10 POC Glucose 121 mg/dL (70-99) H 11/03/18 07:29 Phosphorus 2.4 mg/dL (2.7-4.5) L 10/29/18 01:27 Direct Bilirubin 0.3 mg/dL (0.0-0.2) H 11/03/18 03:10 Globulin 4.0 g/dL (2.4-3.5) H 11/03/18 03:10 Albumin/Globulin Ratio 0.9 (1.1-2.2) L 11/03/18 03:10 Urine Ketones Trace mg/dL (Negative) H 10/28/18 18:12 Urine Bilirubin Small (Negative) H 10/28/18 18:12 Ur Leukocyte Esterase Small (Negative) H 10/28/18 18:12 Ur Squamous Epith Cells Moderate per lpf (None-Few) H 10/28/18 18:12 Consult Discharge Plan - Plan Referrals: Henri Montejo DO [Partnered Physician] - 11/16/18 4:00 pm <Gilbert Garcia I - Last Filed: 11/03/18 15:44> Date of Encounter: 11/03/18 Assessment and Plan (1) Seizure disorder Current Visit: Yes Status: Chronic Pt was seen and examined, my medical decision was reviewed with the Resident Physician, I agree with the documented findings, disposition and treatment plas as described except to the extent set forth below We will proceed with a spinal tap as he continued to have mental status changes so far no evidence of any stroke clinically no sinus symptoms of meningitis no evidence of any breakthrough seizures will proceed with spinal tap and follow patient with you Gilbert Garcia MD Objective - Constitutional Vitals: Temp Pulse Resp BP Pulse Ox 97.8 F 78 16 128/82 95 11/03/18 11:45 11/03/18 11:45 11/03/18 11:45 11/03/18 11:45 11/03/18 11:45 Results - Laboratory Findings CBC and BMP: 11/03/18 03:10 11/03/18 03:10 Abnormal lab findings: Abnormal lab results Plt Count 135 K/mcL (140-400) L 11/03/18 03:10 PT 16.5 Seconds (9.4-12.1) H 10/29/18 01:27 Chloride 109 mEq/L (98-107) H 11/03/18 03:10 Glucose 111 mg/dL (70-105) H 11/03/18 03:10 POC Glucose 121 mg/dL (70-99) H 11/03/18 07:29 Phosphorus 2.4 mg/dL (2.7-4.5) L 10/29/18 01:27 Direct Bilirubin 0.3 mg/dL (0.0-0.2) H 11/03/18 03:10 Globulin 4.0 g/dL (2.4-3.5) H 11/03/18 03:10 Albumin/Globulin Ratio 0.9 (1.1-2.2) L 11/03/18 03:10 Urine Ketones Trace mg/dL (Negative) H 10/28/18 18:12 Urine Bilirubin Small (Negative) H 10/28/18 18:12 Ur Leukocyte Esterase Small (Negative) H 10/28/18 18:12 Ur Squamous Epith Cells Moderate per lpf (None-Few) H 10/28/18 18:12 CSF Glucose 72 mg/dL (40-70) H 11/03/18 08:55 CSF Total Protein 101 mg/dL (15-45) H 11/03/18 08:55 F-Actin IgG Antibody 21 Units (0-19) H 11/01/18 09:07
[2018-11-03] MEDS ORDERED: 0.9 % Sodium Chloride 1,000 ML IVC SCH (09:15)
--- NOTE | 2018-11-03 09:15 | Procedure Note ---
<Peewee Alvarado - Last Filed: 11/03/18 09:13> Date of procedure: 11/03/18 (08) Pre-op diagnosis: AMS Post-op diagnosis: same Procedure: A time-out was completed verifying correct patient, procedure, site, positioning, and special equipment if applicable. The patient was placed in the right lateral decubitus position in a semi- position with help from the nursing staff. The area was cleansed and draped in usual sterile fashion. 1% lidocaine was used anesthetize the surrounding skin area. A 20-gauge 3.5-inch spinal needle was placed in the L3-L4 interspace. Clear cerebral spinal fluid was obtained and the opening pressure was not checked. Four tubes were filled with 4 mL of CSF. These were sent for the usual tests, including 1 tube to be held for further analysis if needed. Attending Dr. Garcia was present for the entire procedure Estimated Blood Loss: 0 cc The patient tolerated the procedure well and there were no complications. Anesthesia: local Surgeon: Peewee Alvarado Was there an bookkeeping assistant present: Yes Closing Manager: Gilbert Garcia Estimated blood loss (cc): 0 IV fluids (cc): 1,000 Specimen: 4 cc CSF Pathology: other Condition: stable Disposition: no change <Gilbert Garcia I - Last Filed: 11/03/18 15:50> Procedure: I was present during the whole procedure and assisted Dr. Alvarado, in spinal tap. Gilbert Garcia MD
[2018-11-03] MEDS: Topiramate 100 MG TABLET PO SCH ×2 (09:36→20:32)
[2018-11-03] MEDS: OXcarbazepine 150 MG TABLET PO SCH ×2 (09:36→20:32)
[2018-11-03] MEDS: Cyanocobalamin (B-12) 1,000 MCG TABLET PO SCH (09:36)
[2018-11-03] MEDS: Aspirin Enteric Coated 81 MG Tablet PO SCH (09:37)
[2018-11-03] MEDS: Lactulose Oral Soln 20 GM/30 ML UDC PO SCH ×3 (09:37→20:33)
[2018-11-03 09:42] LABS: Appearance,CSF Clear (Clear); Red Blood Cell,CSF < 0.002 M/mcL
[2018-11-03 10:02] LABS: Glucose,CSF 72 mg/dL (40-70); Total Protein,CSF 101 mg/dL (15-45)
[2018-11-03 11:13] LABS: AFP Tumor Marker Non-Pregnant 2 ng/mL (0-9)
[2018-11-03 11:25] LABS: ANA IgG by ELISA NONE DETECTED (None Detected)
[2018-11-03 11:28] LABS: F-Actin (sm muscle) Ab IgG 21 Units (0-19)
--- NOTE | 2018-11-03 13:37 | Internal Med Progress Note ---
Hospitalist Progress Note - Encounter Date of Encounter: 11/03/18 Time of Encounter: 13:35 - Subjective Interval History: Patient lying comfortably on bed. Alert awake and less sleepy today with slight better orientation but is still cannot recall the thinks immediately. No active seizure. Had 3 bowel movements last night Sitter at bedside. Reviewed the lab with trending up ammonia. Patient denies fever chills nausea vomiting headache chest pain short of breath cough abdominal pain urinary or bowel complaint - Exam Vitals: Temp Pulse Resp BP Pulse Ox 97.8 F 78 16 128/82 95 11/03/18 11:45 11/03/18 11:45 11/03/18 11:45 11/03/18 11:45 11/03/18 11:45 Exam: General: well developed, well nourished male in no acute distress Head: normocephalic and atraumatic Eyes: PERRL, EOMI, sclera anicteric, conjunctiva pink Neck: supple Lungs: CTA bilaterally. Heart: RRR +s1 +S2. no murmurs, clicks, or rubs GI: abdomen soft, reportedly non-tender, positive bowel sounds Extremities: Peripheral pulses palpable Neuro: Alert awake. Takes time to recall the memory. Oriented to self and place. slowly speech but understandable. Motor 5 x 5 in all 4 extremities. Skin: warm, dry, intact - Assessment and Plan (1) Acute metabolic encephalopathy Current Visit: Yes Status: Acute Assessment and Plan: On admission patient presented with elevated ammonia, elevated INR, and slightly decreased platelets Today normal ammonia level. Continue lactulose 40 mg 3 times a day to titrate bowel movement 2-4 per day when necessary and dose can be readjusted based on response. Consulted GI specialist who did order complete liver workup-AFP, alpha-1 antitrypsin, ABDIRAHMAN, ceruloplasmin, F actin, ferritin, hepatitis profile, ABDIRAHMAN and advised to follow GI as outpatient EGD for variceal screening. (2) Seizure disorder Current Visit: Yes Status: Chronic Assessment and Plan: History of seizures and a stroke. Patient was on Topamax and Trileptal at home. witnessed active seizure during stay therefore neurologist consulted. EEG done with finding suggestive of post ictal status or toxic encephalopathy. MRI brain with and without contrast with no acute finding but is stable right temporal encephalomalacia in keeping with sequela of ifarct . Neurologist recommended to continue home dose of Topamax. Seizure precaution. Today normal ammonia level. Spinal tap done today and finding does not appear consistent with bacterial meningitis but neurology team will discuss results with pathologists. May consider repeating an EEG . Physiotherapy consulted. (3) Fatty liver Current Visit: Yes Status: Acute Assessment and Plan: Ultrasound liver with finding of gallbladder sludge with slight elevated total bilirubin. Consulted GI specialist for further evaluation especially with high ammonia level and questionable underlying cirrhosis. Please see above for his recommendation. (4) HTN (hypertension) Current Visit: No Status: Chronic Assessment and Plan: Well controlled. Continue to monitor. Continue home meds (5) DM type 2 (diabetes mellitus, type 2) Current Visit: No Status: Chronic Assessment and Plan: Hx of DM2. Well-controlled blood glucose level. Hold home metformin during admission SSI, Accu-Chek (6) Goals of care, counseling/discussion Current Visit: Yes Status: Acute Assessment and Plan: Will consult inpatient psychiatry after getting neuro clearance. Ammonia level normal. medicine worker PTOT onboard for discharge plan. He may need inpatient rehabilitation. (7) Psychiatric disorder Current Visit: Yes Status: Acute Assessment and Plan: As per note patient has psychiatric disorder and seen by psychiatry in June 2018 and got treated with antipsychotic medicine. As per note he seems like that psychotic disorder was related with post seizure event. Will consult inpatient psychiatrist once patient is medically stable and cleared by neuro logist. At present patient is not homicidal or suicidal. Sitter at bedside. (8) DVT prophylaxis Current Visit: Yes Status: Acute Assessment and Plan: EPCDs - Time Spent with Patient Total time spent is greater than 50% in coordination of care (as documented) at patient's floor/unit and/or counseling patient: Internal Medicine: Result - Labs CBC & Chem 7: 11/03/18 03:10 11/03/18 03:10 Labs: Short CBC 11/03/18 Range/Units 03:10 WBC 8.2 (4.3-11.1) K/mcL Hgb 14.9 (12.9-16.9) g/dL Hct 42.2 (37.5-50.1) % Plt Count 135 L (140-400) K/mcL Neutrophils # 3.5 (1.6-8.9) K/mcL BMP 11/03/18 03:10 Sodium 140 Potassium 3.5 Chloride 109 H Carbon Dioxide 23 BUN 11 Creatinine 0.84 Glucose 111 H Calcium 8.6 Liver Function 11/03/18 Range/Units 03:10 Total Bilirubin 1.0 (0.3-1.0) mg/dL Direct Bilirubin 0.3 H (0.0-0.2) mg/dL AST 22 (13-39) Units/L ALT 17 (7-52) Units/L Alkaline Phosphatase 70 (34-104) Units/L Albumin 3.7 (3.5-5.7) g/dL - ABG Interpretation ABG results: PT/INR, D-dimer PT 16.5 Seconds (9.4-12.1) H 10/29/18 01:27 Consult Discharge Plan - Plan Referrals: Henri Montejo DO [Partnered Physician] - 11/16/18 4:00 pm (4) HTN (hypertension) Qualifiers: Hypertension type: essential hypertension Qualified Code(s): I10 - Essential (primary) hypertension (5) DM type 2 (diabetes mellitus, type 2) Qualifiers: Diabetes mellitus group home insulin use: without moulder operator use Diabetes mellitus complication status: without complication Qualified Code(s): E11.9 - Type 2 diabetes mellitus without complications
[2018-11-04] MEDS: Insulin LISPRO 300 UNITS/3 ML VIAL SQ SCH ×4 (07:56→22:04)
--- NOTE | 2018-11-04 08:16 | Neurology Progress Note ---
Addendum entered and electronically signed by Gilbert Garcia MD 11/09/18 09:41: Gilbert Garcia MD Addendum entered and electronically signed by Peewee Alvarado DO 11/04/18 10:23: This addendum serves as my signature to this progress note. Original Note: <Peewee Alvarado - Last Filed: 11/04/18 08:13> Date of Encounter: 11/04/18 Time of Encounter: 08:15 Assessment and Plan (1) Acute metabolic encephalopathy Current Visit: Yes Status: Acute Patient with a history of seizures who was admitted with dizziness, mental status changes, and elevated level of ammonia which be contributing to his abnormal mentation. EEG revealed abnormal awake drowsy electroencephalogram. Mild slowing is a nonspecific pattern could be seen in patient with metabolic toxic encephalopathy at the same time could be seen with postictal state, intermittent triphasic waves noted. MRI brain revealed no acute intracranial abnormality with stable right temporal encephalomalacia in keeping with sequela of prior infarct. Ammonia level is back down to 48, patient remains on lactulose. Lumbar puncture performed to r/o cause of encephalopathy. CSF results reviewed, normal cell count 3 with elevated WBC 10 - 25 on CSF culture, borderline high glucose, proteins are high which could be seen in prolo nged immobilization. Findings do not appear consistent with bacterial meningitis. Will discuss results with pathologist. We may consider repeating an EEG based on clarified CSF results. (2) Seizure disorder Current Visit: Yes Status: Chronic Patient with a history of seizures and stroke who was admitted with dizziness, mental status changes, and elevated level of ammonia which be contributing to his abnormal mentation. EEG revealed abnormal awake drowsy electroencephalogram. Mild slowing is a nonspecific pattern could be seen in patient with metabolic toxic encephalopathy at the same time could be seen with postictal state, intermittent triphasic waves noted. Continue home dose Oxcarbaxepine and Topamax home dose 150 mg BID. Continue seizure precautions. We will consider repeating an EEG based on CSF results. (3) History of CVA (cerebrovascular accident) Current Visit: No Status: Chronic (4) HLD (hyperlipidemia) Current Visit: No Status: Chronic Lipid panel from June 2018 reviewed. Patient's reports Lipitor has caused him to be confused in the past. Statin therapy switched to Zocor instead. Qualifiers: Hyperlipidemia type: unspecified Qualified Code(s): E78.5 - Hyperlipidemia, unspecified (5) HTN (hypertension) Current Visit: No Status: Chronic Qualifiers: Hypertension type: essential hypertension Qualified Code(s): I10 - Essential (primary) hypertension (6) DM type 2 (diabetes mellitus, type 2) Current Visit: No Status: Chronic Qualifiers: Diabetes mellitus mcfp insulin use: without mcfp use Diabetes mellitus complication status: without complication Qualified Code(s): E11.9 - Type 2 diabetes mellitus without complications Subjective Principal diagnosis: Seizure Interval history: Patient seen and examined resting comfortably in bed. Patient's mental status has improved. We are still waiting on additional lumbar puncture results. Objective - Constitutional Vitals: Temp Pulse Resp BP Pulse Ox 97.9 F 61 18 119/80 98 11/04/18 07:19 11/04/18 07:19 11/04/18 07:19 11/04/18 07:19 11/04/18 07:19 General appearance: Present: cooperative, A&O X 3, no acute distress, answers questions appropriately - Head Head exam: Present: atraumatic, normocephalic - Eye Eye exam: Present: PERRL, conjuntiva pink, sclera anicteric Pupils: Present: PERRL - Extremities Exam Extremities exam: Present: warm, radial pulses palpable and symmetrical. Absent: calf tenderness, cyanotic, pedal edema - Neurological Exam Sensorimotor examination: Present: intact, pronator drift Motor Examination: Present: grossly full strength in all extremities, full strength in all major muscle groups Motor examination - left side: 5/5: deltoids, biceps, triceps, wrist flexion, wrist extension, hip flexors, early childhood education worker, quadriceps, tibialis Anterior, toe extension (EHL), plantarflexion Sensation intact: Present: intact, light touch Reflex and gait examination: intact Mental Status Examination: Present: awake, alert, oriented to person, oriented to place, follows commands appropriately, answers questions appropriately, no agnosia, no aphasia, no aproxia, drowsy, follows simple commands, localizes noxious stimulation, inattentive. Absent: oriented to time Cranial nerve examination: Present: PERRL, EOMI, visual maravilla intact, sensory to face intact, mastication intact, no facial asymmetry is present, no dysarthr ia, flexes SCM and trapezius muscles symmetrically with full power, no atrophy or facial fasiculations present Cerebellar examination: Present: no dysmetria, performs finger to nose and heel to brower symmetrically without ataxia, no gait ataxia, no truncal ataxia, no difficulty with rapid alternating movements Results - Laboratory Findings CBC and BMP: 11/03/18 03:10 11/03/18 03:10 Abnormal lab findings: Abnormal lab results Plt Count 135 K/mcL (140-400) L 11/03/18 03:10 PT 16.5 Seconds (9.4-12.1) H 10/29/18 01:27 Chloride 109 mEq/L (98-107) H 11/03/18 03:10 Glucose 111 mg/dL (70-105) H 11/03/18 03:10 Phosphorus 2.4 mg/dL (2.7-4.5) L 10/29/18 01:27 Direct Bilirubin 0.3 mg/dL (0.0-0.2) H 11/03/18 03:10 Globulin 4.0 g/dL (2.4-3.5) H 11/03/18 03:10 Albumin/Globulin Ratio 0.9 (1.1-2.2) L 11/03/18 03:10 Urine Ketones Trace mg/dL (Negative) H 10/28/18 18:12 Urine Bilirubin Small (Negative) H 10/28/18 18:12 Ur Leukocyte Esterase Small (Negative) H 10/28/18 18:12 Ur Squamous Epith Cells Moderate per lpf (None-Few) H 10/28/18 18:12 CSF Glucose 72 mg/dL (40-70) H 11/03/18 08:55 CSF Total Protein 101 mg/dL (15-45) H 11/03/18 08:55 F-Actin IgG Antibody 21 Units (0-19) H 11/01/18 09:07 Consult Discharge Plan - Plan Referrals: Henri Montejo DO [Partnered Physician] - 11/16/18 4:00 pm <Gilbert Garcia I - Last Filed: 11/04/18 10:16> Date of Encounter: 11/04/18 Assessment and Plan (1) Seizure disorder Current Visit: Yes Status: Chronic Pt was seen and examined, my medical decision was reviewed with the Resident Physician, I agree with the documented findings, disposition and treatment plan s as described except to the extent set forth below. Patient seems to be stable he is alert awake and oriented able to follow simple commands no focal motor deficit on neurological examination. CSF did not reveal is any infection though he did have a elevated protein but that seems to be a nonspecific findings so far cultures has been negative EEG did not show any seizure activity Ammonia level is improving and back to normal OK to DC from neurology stand point, continue on same AEDS, f/u with Dr Vasquez in 2/3 weeks after Discharge Gilbert Garcia MD Objective - Constitutional Vitals: Temp Pulse Resp BP Pulse Ox 97.9 F 61 18 119/80 98 11/04/18 07:19 11/04/18 07:19 11/04/18 07:19 11/04/18 07:19 11/04/18 08:18 Results - Laboratory Findings CBC and BMP: 11/03/18 03:10 11/03/18 03:10 Abnormal lab findings: Abnormal lab results Plt Count 135 K/mcL (140-400) L 11/03/18 03:10 PT 16.5 Seconds (9.4-12.1) H 10/29/18 01:27 Chloride 109 mEq/L (98-107) H 11/03/18 03:10 Glucose 111 mg/dL (70-105) H 11/03/18 03:10 Phosphorus 2.4 mg/dL (2.7-4.5) L 10/29/18 01:27 Direct Bilirubin 0.3 mg/dL (0.0-0.2) H 11/03/18 03:10 Globulin 4.0 g/dL (2.4-3.5) H 11/03/18 03:10 Albumin/Globulin Ratio 0.9 (1.1-2.2) L 11/03/18 03:10 Urine Ketones Trace mg/dL (Negative) H 10/28/18 18:12 Urine Bilirubin Small (Negative) H 10/28/18 18:12 Ur Leukocyte Esterase Small (Negative) H 10/28/18 18:12 Ur Squamous Epith Cells Moderate per lpf (None-Few) H 10/28/18 18:12 CSF Glucose 72 mg/dL (40-70) H 11/03/18 08:55 CSF Total Protein 101 mg/dL (15-45) H 11/03/18 08:55 F-Actin IgG Antibody 21 Units (0-19) H 11/01/18 09:07 Serine Protease 3 Ab 97 AU/mL (0-19) H 11/01/18 09:07
[2018-11-04] MEDS: Cyanocobalamin (B-12) 1,000 MCG TABLET PO SCH (08:25)
[2018-11-04] MEDS: Lactulose Oral Soln 20 GM/30 ML UDC PO SCH ×3 (08:25→22:04)
[2018-11-04] MEDS: Aspirin Enteric Coated 81 MG Tablet PO SCH (08:25)
[2018-11-04] MEDS: OXcarbazepine 150 MG TABLET PO SCH ×2 (08:25→22:03)
[2018-11-04] MEDS: Topiramate 100 MG TABLET PO SCH ×2 (08:25→22:03)
[2018-11-04 09:49] LABS: Myeloperoxidase Ab 3 AU/mL (0-19); Serine Protease-3 Antibody 97 AU/mL (0-19)
[2018-11-04] MEDS ORDERED: Ibuprofen 600 MG TABLET PO PRN (10:10)
--- NOTE | 2018-11-04 17:46 | Internal Med Progress Note ---
Hospitalist Progress Note - Encounter Date of Encounter: 11/04/18 Time of Encounter: 17:35 - Subjective Interval History: Pt denies fever chills, N/V or diarrhea. Denies CP or SOB. Denies constipation or diarrhea. - Exam Vitals: Temp Pulse Resp BP Pulse Ox 97.9 F 76 16 120/78 95 11/04/18 11:19 11/04/18 11:19 11/04/18 11:19 11/04/18 11:19 11/04/18 11:19 Exam: General: well developed, well nourished male in no acute distress Head: normocephalic and atraumatic Eyes: PERRL, EOMI, sclera anicteric, conjunctiva pink Neck: supple Lungs: CTA bilaterally. Heart: RRR +s1 +S2. no murmurs, clicks, or rubs GI: abdomen soft, reportedly non-tender, positive bowel sounds Extremities: Peripheral pulses palpable Neuro: Alert awake. Takes time to recall the memory. Oriented to self and place. slowly speech but understandable. Motor 5 x 5 in all 4 extremities. Skin: warm, dry, intact - Assessment and Plan (1) Seizure disorder Current Visit: Yes Status: Chronic Assessment and Plan: History of seizures and a stroke. Patient was on Topamax and Trileptal at home. Witnessed active seizure during stay therefore neurologist consulted. EEG done with finding suggestive of post ictal status or metabolic encephalopathy. MRI brain with and without contrast with no acute finding but is stable right temporal encephalomalacia in keeping with sequela of infarct . Neurologist recommended to continue Continue home dose Oxcarbaxepine and Topamax home dose 150 mg BID. Seizure precaution. Today normal ammonia level. Spinal tap done and finding does not appear consistent with bacterial meningitis but neurology team will discuss results with pathologists. May consider repeating an EEG. Physiotherapy consulted. (2) Acute metabolic encephalopathy Current Visit: Yes Status: Acute Assessment and Plan: On admission patient presented with elevated ammonia, elevated INR, and slightly decreased platelets Today normal ammonia level. Continue lactulose 40 mg 3 times a day Consulted GI specialist who did order complete liver workup-AFP, alpha-1 antit rypsin, ABDIRAHMAN, ceruloplasmin, F actin, ferritin, hepatitis profile, ABDIRAHMAN and advised to follow GI as outpatient EGD for variceal screening. (3) DM type 2 (diabetes mellitus, type 2) Current Visit: No Status: Chronic Assessment and Plan: Hx of DM2. Well-controlled blood glucose level. Holding home metformin during admission. On SSI, Accu-Check (4) HTN (hypertension) Current Visit: No Status: Chronic Assessment and Plan: Well controlled. Continue to monitor. Continue home meds (5) Fatty liver Current Visit: Yes Status: Acute Assessment and Plan: Ultrasound liver with finding of gallbladder sludge with slight elevated total bilirubin. Consulted GI specialist for further evaluation especially with high ammonia level and questionable underlying cirrhosis. Please see above for his recommendation. (6) Goals of care, counseling/discussion Current Visit: Yes Status: Acute Assessment and Plan: Will consult inpatient psychiatry after getting neurology clearance. Ammonia level normal. group worker PT/OT onboard for discharge plan. He may need inpatient rehabilitation. (7) Psychiatric disorder Current Visit: Yes Status: Acute Assessment and Plan: Patient has had psychiatric disorder and seen by psychiatry in June 2018 and got treated with antipsychotic medicine. As per note he seems like that p sychotic disorder was related with post seizure event. Will consult inpatient psychiatrist once patient is medically stable and cleared by neurologist. At present patient is not homicidal or suicidal. Sitter at bedside. DVT Prophylaxis: EPCDs - Summary of Assessment and Plan Summary of Assessment and Plan: History of present illness: Mr. Carreon is a 43 year old male with PMH of seizures, HTN, and diabetes. He presents to the ED today for altered mental status. Pt's reports that the patient had 3 seizures on Wednesday. She also reported that the pt fell and hit his head on a glass table during one of these seizures. She states he has not complained of any fevers or recent illnesses. Pt's was not at bedside duri ng the encounter with this provider. Pt is alert, but not oriented to time or place or person. When asked what year it is, the patient pointed to the ceiling and said "up there is the year". He also pointed to his sitter in the ED and proclaimed she is president of the [place]. Pt would also laugh sporadically during the encounter. However, I have seen the patient in residency clinic previously and this is far from his normal baseline. Of note he was admitted to [facility] at the end of May for similar episodes. At that time he was thought to have hepatic encephalopathy from elevated ammonia secondary to Keppra use. He was also found to have cirrhosis of unknown origin. Pt does not drink alcohole, nor does he use IV drugs. Sees Dr. Vasquez, neurologist, as outpatient. - Time Spent with Patient Total time spent is greater than 50% in coordination of care (as documented) at patient's floor/unit and/or counseling patient: less than 15 minutes Plan of Care Discussed with: patient Internal Medicine: Result - Labs CBC & Chem 7: 11/03/18 03:10 11/03/18 03:10 - ABG Interpretation ABG results: PT/INR, D-dimer PT 16.5 Seconds (9.4-12.1) H 10/29/18 01:27 Consult Discharge Plan - Plan Referrals: Henri Montejo DO [Partnered Physician] - 11/16/18 4:00 pm (3) DM type 2 (diabetes mellitus, type 2) Qualifiers: Diabetes mellitus intermediate card tender insulin use: without care home use Diabetes mellitus complication status: without complication Qualified Code(s): E11.9 - Type 2 diabetes mellitus without complications (4) HTN (hypertension) Qualifiers: Hypertension type: essential hypertension Qualified Code(s): I10 - Essential (primary) hypertension
[2018-11-05] MEDS: Cyanocobalamin (B-12) 1,000 MCG TABLET PO SCH (07:56)
[2018-11-05] MEDS: Aspirin Enteric Coated 81 MG Tablet PO SCH (07:56)
[2018-11-05] MEDS: OXcarbazepine 150 MG TABLET PO SCH (07:57)
[2018-11-05] MEDS: Topiramate 100 MG TABLET PO SCH (07:57)
[2018-11-05] MEDS: Lactulose Oral Soln 20 GM/30 ML UDC PO SCH (08:07)
[2018-11-05 11:30] LABS: Borrelia burgdorferi Abs CSF 0.11 LIV (<=0.99)
--- NOTE | 2018-11-05 13:44 | Discharge Summary ---
Orders not resulted at time of discharge: Pending orders 11/01/18 09:07 Liver Fibrosis for NAFLD Routine 11/03/18 08:55 Borrelia burgdorferi Panel CSF Routine Cryptococcal Antigen [MYC] Routine Culture,CSF [RM] Routine Fungal Culture [MYC] Routine VDRL reflex titer, CSF Routine Varicella-Zoster Virus PCR Routine Date of Encounter: 11/05/18 Time of Encounter: 13:42 - Discharge Diagnosis (1) Seizure disorder Priority: Primary Status: Chronic (2) Acute metabolic encephalopathy Priority: Secondary Status: Resolved (3) DM type 2 (diabetes mellitus, type 2) Priority: Secondary Status: Chronic Qualifiers: 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: without 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 Diabetes mellitus complication status: without complication Qualified Code(s): E11.9 - Type 2 diabetes mellitus without complications (4) Obesity (BMI 30.0-34.9) Priority: Secondary Status: Chronic (5) HTN (hypertension) Priority: Secondary Status: Chronic Qualifiers: Hypertension type: essential hypertension Qualified Code(s): I10 - Essential (primary) hypertension (6) Hyperammonemia Priority: Secondary Status: Resolved (7) Fatty liver Priority: Secondary Status: Acute (8) Psychiatric disorder Priority: Secondary Status: Acute Assessment and Plan: resolved (9) HLD (hyperlipidemia) Priority: Secondary Status: Chronic Qualifiers: Hyperlipidemia type: unspecified Qualified Code(s): E78.5 - Hyperlipidemia, unspecified Hospital course: Mr. Carreon is a 43 year old male with PMH of seizures, HTN, and diabetes. He presents to the ED today for altered mental status. Pt's reports that the patient had 3 seizures on Wednesday. She also reported that the pt fell and hit his head on a glass table during one of these seizures. She states he has not complained of any fevers or recent illnesses. Pt's was not at bedside d uring the encounter with this provider. Pt is alert, but not oriented to time or place or person. When asked what year it is, the patient pointed to the ceiling and said "up there is the year". He a lso pointed to his sitter in the ED and proclaimed she is president of the [place]. Pt would also laugh sporadically during the encounter. However, I have seen the patient in residency clinic previously and this is far from his normal baseline. Of note he was admitted to [facility] at the end of May for similar episodes. At that time he was thought to have hepatic encephalopathy from elevated ammonia secondary to Keppra use. He was also found to have cirrhosis of unknown origin. Pt does not drink alcohole, nor does he use IV drugs. Sees Dr. Vasquez, neurologist, as outpatient. (1) Seizure disorder History of seizures and a stroke. Patient was on Topamax and Trileptal at home. Witnessed active seizure during stay therefore neurologist consulted. EEG done with finding suggestive of post ictal status or metabolic encephalopathy. MRI brain with and without contrast with no acute finding but is stable right temporal encephalomalacia in keeping with sequela of infarct . Neurologist recommended to continue Continue home dose Oxcarbaxepine and Topamax home dose 150 mg BID. Seizure precaution. normal ammonia level. Spinal tap done and finding does not appear consistent with bacterial meningitis Neurology is ok to discharge on home meds, follow up with Dr Vasquez in 2 weeks, patient has an appt (2) Acute metabolic encephalopathy from pos-ictal and possible hepatic encephalopathy, resolved and back to the baseline per his On admission patient presented with elevated ammonia, elevated INR, and slightly decreased platelets Today normal ammonia level. Continue lactulose 40 mg 3 times a day Consulted GI specialist who did order complete liver workup-AFP, alpha-1 antitrypsin, ABDIRAHMAN, ceruloplasmin, F actin, ferritin, hepatitis profile, ABDIRAHMAN and advised to follow GI as outpatient EGD for variceal screening. follow up with Dr Elva marie script is given (3) DM type 2 (diabetes mellitus, type 2) Current Visit: No Status: Chronic Assessment and Plan: Hx of DM2. Well-controlled blood glucose level. Holding home metformin during admission. On SSI, Accu-Check (4) HTN (hypertension) Current Visit: No Status: Chronic Assessment and Plan: Well controlled. Continue to monitor. Continue home meds (5) Fatty liver Current Visit: Yes Status: Acute Assessment and Plan: Ultrasound liver with finding of gallbladder sludge with slight elevated total bilirubin. Consulted GI specialist for further evaluation especially with high ammonia level and questionable underlying cirrhosis. Please see above for his recommendation. (6) Goals of care, counseling/discussion (7) Psychiatric disorder follow up OP Time spent discussing smoking cessation with patient: 3 to 10 minutes - Time Spent with Patient Total time spent providing and/or coordinating discharge services: Greater than 30 minutes - Discharge Medications Prescriptions: Cyanocobalamin (B-12) [Vitamin B12] 1,000 mcg PO DAILY #30 tablet Lactulose 40 gm PO TID 30 Days #30 vial Simvastatin [Zocor] 40 mg PO HS #30 tablet Home Medications: Metformin HCl [Glucophage] 1,000 mg PO BID 06/27/18 [History] Omeprazole [PriLOSEC] 20 mg PO DAILY 06/27/18 [History] Topiramate [Topamax] 150 mg PO BID 06/27/18 [History] Aspirin Enteric Coated [Aspirin EC] 81 mg PO DAILY #30 tablet. 07/03/18 [Rx] OXcarbazepine [Oxcarbazepine] 600 mg PO BID 10/28/18 [History] Amitriptyline [Elavil] 50 mg PO HS tablet 11/05/18 [Rx] Cyanocobalamin (B-12) [Vitamin B12] 1,000 mcg PO DAILY #30 tablet 11/05/18 [Rx] Lactulose 40 gm PO TID 30 Days #30 vial 11/05/18 [Rx] Simvastatin [Zocor] 40 mg PO HS #30 tablet 11/05/18 [Rx] Allergies/Adverse Reactions: Allergy/AdvReac Type Severity Reaction Status Date / Time No Known Allergies Allergy Verified 11/04/18 14:28 Date of admission: 10/30/18 13:07 Primary care physician: PCP NONE Consults: 10/29/18 19:10 Consult to Broodmare Foreman [CONS] Routine Reason for SW Consult: [facility] 10/30/18 12:47 Consult to Neurology [CONS] Routine Consulting Provider: Neurology [facility] Reason for Consult: uncontrolled epilepsy Call Completed: Yes 10/31/18 11:18 Consult to Interpret Exam [CONS] Routine Consulting Provider: Gilbert Garcia I Consult to Interpret Exam: Interpret EEG 10/31/18 15:55 Consult to Gastroenterology [CONS] Routine Consulting Provider: Gastroenterology Sirisha Reason for Consult: Possible cirrhosis, raised ammonia, hyperbilirubinemia Call Completed: Yes 11/02/18 08:35 Consult to Occupational Therapy [CONS] Routine Comment: Evaluate, develop and implement POC Reason for Consult: weakness Does patient have active BEDREST order?: No Is patient medically & hemodynamically stable?: Yes Patient assessed for mobility or mobilized this visit?: Yes Consult to Physical Therapy [CONS] Routine Comment: Evaluate, develop and implement POC Reason for Consult: weakness Does patient have active BEDREST order?: No Is patient medically & hemodynamically stable?: Yes Patient assessed for mobility or mobilized this visit?: Yes Anticipated date of discharge: 11/05/18 - Constitutional Vitals: Temp Pulse Resp BP Pulse Ox 97.9 F 64 15 114/76 95 11/05/18 10:21 11/05/18 10:21 11/05/18 10:21 11/05/18 10:21 11/05/18 10:21 General appearance: Present: A&O X 0, cooperative, pleasant. Absent: answers questions appropriately Exam: General: well developed, well nourished male in no acute distress Head: normocephalic and atraumatic Eyes: PERRL, EOMI, sclera anicteric, conjunctiva pink Neck: supple Lungs: CTA bilaterally. Heart: RRR +s1 +S2. no murmurs, clicks, or rubs GI: abdomen soft, reportedly non-tender, positive bowel sounds Extremities: Peripheral pulses palpable Neuro: Alert awake. Takes time to recall the memory. Oriented to self and place. slowly speech but understandable. Motor 5 x 5 in all 4 extremities. Skin: warm, dry, intact - Patient Status Disposition: Home, Self-Care Functional capacity at discharge: independent ambulation Overall status at discharge: patient is back to baseline - Discharge Instructions Follow Up With: Henri Montejo DO [Partnered Physician] - 11/16/18 4:00 pm Teagan Stevenson MD [Partnered Physician] -
[2018-11-05 14:16] VITALS: BP 138/87
--- NOTE | 2018-11-05 14:23 | Physician Discharge Referral ---
Home Health/Hosp Referral Info Provider in Charge Post Discharge: PCP - Diagnosis (1) Seizure disorder Priority: Primary Status: Chronic (2) Acute metabolic encephalopathy Priority: Secondary Status: Acute (3) DM type 2 (diabetes mellitus, type 2) Priority: Secondary Status: Chronic (4) Obesity (BMI 30.0-34.9) Priority: Secondary Status: Chronic (5) HTN (hypertension) Priority: Secondary Status: Chronic (6) Hyperammonemia Priority: Secondary Status: Resolved (7) Fatty liver Priority: Secondary Status: Acute (8) Psychiatric disorder Priority: Secondary Status: Acute (9) HLD (hyperlipidemia) Status: Chronic - Respiratory Orders Smoking Cessation: Smoking cessation has been advised. For more information, call the [place] Tobacco Quit Line at 9-407-EHAY-NOW. - Diet/Nutrition Diet/Nutrition Orders: Regular - Activity Activity Orders: Up ad drew - Services Needed Following services are medically necessary services: Nursing, Home Health Aide - Transfer Medications Prescriptions: Cyanocobalamin (B-12) [Vitamin B12] 1,000 mcg PO DAILY #30 tablet Lactulose 40 gm PO TID 30 Days #30 vial Simvastatin [Zocor] 40 mg PO HS #30 tablet Home Medications: Metformin HCl [Glucophage] 1,000 mg PO BID 06/27/18 [History] Omeprazole [PriLOSEC] 20 mg PO DAILY 06/27/18 [History] Topiramate [Topamax] 150 mg PO BID 06/27/18 [History] Aspirin Enteric Coated [Aspirin EC] 81 mg PO DAILY #30 tablet. 07/03/18 [Rx] OXcarbazepine [Oxcarbazepine] 600 mg PO BID 10/28/18 [History] Amitriptyline [Elavil] 50 mg PO HS tablet 11/05/18 [Rx] Cyanocobalamin (B-12) [Vitamin B12] 1,000 mcg PO DAILY #30 tablet 11/05/18 [Rx] Lactulose 40 gm PO TID 30 Days #30 vial 11/05/18 [Rx] Simvastatin [Zocor] 40 mg PO HS #30 tablet 11/05/18 [Rx] Allergies/Adverse Reactions: Allergy/AdvReac Type Severity Reaction Status Date / Time No Known Allergies Allergy Verified 11/04/18 14:28 Certification: Further, I certify that my clinical findings support that this patient is homebound (i.e. absences from home require considerable and taxing effort and are for medical reasons or uatsdin services or infrequently or short duration when for other reasons) because: Homebound Reason: Patient requires assistance of a person or device to safely leave home Attestation: My signature below is to certify that this patient is under my care and that I, or nurse practitioner, or a physician's nurse's assistant working with me, has a f pasquale-to-face encounter with this patient.
[2018-11-06 08:42] LABS: Smooth Muscle Ab Titer IgG 1:20 (<1:20)
== END 2018-11-05 15:15 | disposition home health service (06) | DRG 53 ==
LOC: 3ANU 14:08 → EMEROOARM 14:08 → 3ANU 21:03 → SUATTDRO 10-30 13:07 → 3ANU 10-31 16:03
PROVIDERS: ADMIT Family Medicine; ATTEND Hospitalist

== ENCOUNTER 2018-12-16 10:57 | Inpatient (IN) ==
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
--- NOTE | 2018-12-16 11:33 | Emergency Department Note ---
Disposition Clinical Impression: Altered mental status Qualifiers: Altered mental status type: disorientation Qualified Code(s): R41.0 - Disorientation, unspecified Disposition: Still a Patient Referrals: NONE,PCP [Primary Care Provider] - Forms: ED Satisfaction Letter General Adult HPI - General Chief complaint: ED Altered Mental Status Stated complaint: Aggressive,Behavorial Time Seen by Provider: 12/16/18 11:10 Source: patient, family Limitations: no limitations Nursing Notes Reviewed: Yes Vital Signs Reviewed: Yes - History of Present Illness HPI Narrative: ED attending attestation note: I examined this patient and my medical decision-making was reviewed with the emergency medicine resident Aisha Strong. I agree with the documented findings, disposition and treatment plan as described except to the extent set forth below. Briefly: 43-year-old male no formal diagnosis of mental health disorder by psychiatrist in the past recent seen at local ED for aggressive behavior they stated "for something medically wrong maybe psychiatric he should good Sirisha because they have a psychiatrist service". Patient is completely altered healing response with words "girth" and "pants". Patient will follow commands mother's concern that he has been having increasingly aggressive behavior in the home and that he might strike or injure somebody. Patient was not altered mental status workup for and will most likely be admitted to the medical hospitalist service for medical clearance and further evaluation. Providing 45 minutes critical care service this patient. Disposition pending Pain Scale: 0 - Related Data Home Medications Medication Instructions Recorded Confirmed Metformin HCl [Glucophage] 1,000 mg PO BID 06/27/18 10/28/18 Omeprazole [PriLOSEC] 20 mg PO DAILY 06/27/18 10/28/18 Topiramate [Topamax] 150 mg PO BID 06/27/18 10/28/18 OXcarbazepine [Oxcarbazepine] 600 mg PO BID 10/28/18 10/28/18 Previous Rx's Medication Instructions Recorded Aspirin Enteric Coated [Aspirin EC] 81 mg PO DAILY #30 tablet. 07/03/18 Amitriptyline [Elavil] 50 mg PO HS tablet 11/05/18 Cyanocobalamin (B-12) [Vitamin B12] 1,000 mcg PO DAILY #30 tablet 11/05/18 Simvastatin [Zocor] 40 mg PO HS #30 tablet 12/08/18 Allergies Allergy/AdvReac Type Severity Reaction Status Date / Time No Known Allergies Allergy Verified 11/04/18 14:28 Past Medical History - Past Medical History Medical history: Reports: diabetes, hypertension, seizures Surgical history: Reports: no surgical history Psychiatric history: Reports: no psych history - Social History Smoking Status: Never smoker Smokeless Tobacco Status: No Alcohol use: Reports: none Drug use: Reports: none Physical Exam - General Limitations: no limitations General appearance: alert Course Vital Signs Temperature 97.6 F 12/16/18 11:02 Pulse Rate 62 12/16/18 11:02 Respiratory Rate 16 12/16/18 11:02 Blood Pressure 131/81 12/16/18 11:02 O2 Sat by Pulse Oximetry 98 12/16/18 11:02 Temperature 97.6 F 12/16/18 11:16 Pulse Rate 62 12/16/18 11:16 Respiratory Rate 16 12/16/18 11:16 Blood Pressure 131/81 12/16/18 11:16 O2 Sat by Pulse Oximetry 98 12/16/18 11:16 Oxygen Delivery Oxygen Delivery Room Air
[2018-12-16 11:59] LABS: Basophils # 0.1 K/mcL (0.0-0.2); Basophils % 1.2 %; Eosinophils # 0.1 K/mcL (0.0-0.6); Eosinophils % 1.2 %; Hemoglobin 14.4 g/dL (12.9-16.9); Immature Granulocytes % 0.2 % (0-4); Lymphocytes # 2.4 K/mcL (0.6-4.6); Lymphocytes % 29.5 %; Mean Corpuscular HGB Conc 34.3 g/dL (31.6-35.5); Mean Corpuscular Hemoglobin 31.2 pg (28.0-33.3); Mean Corpuscular Volume 90.9 fL (83.0-100.0); Mean Platelet Volume 10.9 fL (9.4-12.4); Monocytes # 0.7 K/mcL (0.0-1.3); Neutrophils # 4.9 K/mcL (1.6-8.9); Platelet Count 167 K/mcL (140-400); Red Blood Count 4.62 M/mcL (4.19-5.50); Red Cell Distribution Width 14.9 % (11.5-14.5); Segmented Neutrophils % 59.9 %
[2018-12-16 12:06] LABS: Troponin I < 0.03 ng/mL (< 0.04)
[2018-12-16 12:07] LABS: Alanine Aminotransferase 14 Units/L (7-52); Albumin 3.7 g/dL (3.5-5.7); Alkaline Phosphatase 78 Units/L (34-104); Aspartate Amino Transferase 15 Units/L (13-39); BUN/Creatinine Ratio 7 (6-26); Bilirubin,Direct 0.5 mg/dL (0.0-0.2); Bilirubin,Total 1.5 mg/dL (0.3-1.0); Blood Urea Nitrogen 5 mg/dL (6-20); Calcium 8.8 mg/dL (8.6-10.3); Carbon Dioxide 21 mEq/L (23-29); Chloride 114 mEq/L (98-107); Ethanol < 10 mg/dL (Less than 10); Globulin 3.8 g/dL (2.4-3.5); Glucose 125 mg/dL (70-105); Osmolality,Calculated 293 (280-300); Potassium 3.5 mEq/L (3.5-5.1); Sodium 142 mEq/L (136-145); Total Protein 7.5 g/dL (6.4-8.9); eGFR For Non-African Americans > 60 (> 60)
[2018-12-16 12:21] LABS: Bilirubin,Urine Negative (Negative); Blood,Urine Large (Negative); Clarity,Urine Cloudy (Clear); Color,Urine Dark Yellow (Yellow); Glucose,Urine (UA) Normal (Normal); Ketones,Urine Negative (Negative); Leukocyte Esterase,Urine Moderate (Negative); Nitrite,Urine Negative (Negative); Protein,Urine 30 mg/dL (Neg-Trace); Specific Gravity,Urine 1.011 (1.010-1.025); Urobilinogen,Urine Normal (Normal)
[2018-12-16 12:23] LABS: Hyaline Casts,Urine Moderate per lpf (None-Few); RBC,Urine 50-100 per hpf (0-3); Squamous Epithelial Cell,Urine Many per lpf (None-Few)
[2018-12-16] MEDS ORDERED: Ziprasidone injection 20 MG/ML VIAL IM ONE (12:27)
[2018-12-16 12:28] LABS: Amphetamine Screen,Urine Negative ng/mL (Cutoff=1000); Barbiturate Screen,Urine Negative ng/mL (Cutoff=200); Benzodiazepines Screen,Urine Negative ng/mL (Cutoff=200); Cannabinoid Screen,Urine Negative ng/mL (Cutoff = 50); Cocaine Screen,Urine Negative ng/mL (Cutoff= 300); Opiate Screen,Urine Negative ng/mL (Cutoff=300); Phencyclidine Screen,Urine Negative ng/mL (Cutoff=25)
[2018-12-16 12:46] LABS: Bacteria,Urine Moderate per hpf (None-Few); WBC,Urine 30-50 per hpf (0-3)
[2018-12-16] MEDS ORDERED: cefTRIAXone 1,000 MG in Water for inj. (sterile) 20 ML 10 ML IVP ONE (13:30)
[2018-12-16] MEDS ORDERED: Naloxone 0.4 MG/ML INJ IVP PRN (14:56)
[2018-12-16] MEDS: Haloperidol Lactate 5 MG/ML VIAL IVP SCH ×2 (15:24→20:59)
[2018-12-16] MEDS: Lactulose Oral Soln 20 GM/30 ML UDC PO SCH ×2 (15:24→21:01)
--- NOTE | 2018-12-16 15:28 | Internal Med History&Physical ---
<Serg Martinez - Last Filed: 12/16/18 15:10> Date of Encounter: 12/16/18 Time of Encounter: 14:45 Assessment and Plan (1) Altered mental status Current visit: Yes Status: Acute Secondary to hepatic encephalopathy vs underlying psychiatric illness . - See plan for hepatic encephalopathy. - Consult to psych. - Haldol PRN Q4HR for agitation. Qualifiers: Altered mental status type: disorientation Qualified Code(s): R41.0 - Disorientation, unspecified (2) Hepatic encephalopathy Current visit: Yes Status: Acute Ultrasound on 06/27/18 shows slight nodular contour to the liver which is concerning for cirrhosis. According to prior records, he does not drink alcohol or use IV drugs. Cirrhosis is of unknown origin. He also has a history of fatty liver. Patient does have prior history of admission for hyperammonia. Head CT today showed no acute intracranial abnormality and a remote R temporal lobe infract (likely due to prior CVA). Prior brain MRI on 10/31/18 showed no acute intracranial abnormality. AMS due to encephalopathy vs psychiatric illness. No electrolyte abnormalities were noted. Possible UTI. Cultures are pending. - Lactulose 20 gm TID. - Trend ammonia levels. (3) Psychiatric disorder Current visit: No Status: Acute Hepatic encephalopathy would present as more somnolence and the patient actually presents as more catatonic and erratic behavior. - Consult to psychiatry. (4) UTI (urinary tract infection) Current visit: Yes Status: Acute UA showed signs of infection. - Cultures pending. - Day 1 rocephin. Continue antibiotic. Qualifiers: Urinary tract infection type: site unspecified Hematuria presence: without hematuria Qualified Code(s): N39.0 - Urinary tract infection, site not specified (5) DM type 2 (diabetes mellitus, type 2) Current visit: No Status: Chronic Glucose level at 125. Patient takes metformin at home. - Hold metformin for now due to encephalopathy. Qualifiers: Diabetes mellitus usp insulin use: without usp use Diabetes mellitus complication status: without complication Qualified Code(s): E11.9 - Type 2 diabetes mellitus without complications (6) HTN (hypertension) Current visit: No Status: Chronic Blood pressure stable at 131/81. - Qualifiers: Hypertension type: essential hypertension Qualified Code(s): I10 - Essential (primary) hypertension (7) Seizure disorder Current visit: No Status: Chronic Patient has history of epilepsy with complex partial seizures. He is on topiramte and oxcarbazepinea at home. - Resume home medications. (8) DVT prophylaxis Current visit: No Status: Acute Heparin 5000 U SQ Q12HR. Internal Medicine - H&P: HPI Chief complaint: AMS Admitted From: Home History of present illness: Mr. Carreon is a 43 year old male with a PMH of seizures, CVA, HTN, T2DM, fatty liver, and possible liver cirrhosis that presents for altered mental status. Patient presented to the ED on 12/16/18. He was accompanied by his mother at bedside. According to the mother, patient was recently admitted to an outside hospital for high ammonia levels. He was supposed to be taking lactulose. A ccording to the mother, he was discharged today. When the patient went home, he become more aggressive than usual. She was concerned that he was going to become violent at hurt others in the household. According to mother, patient is not at his baseline, which usually involves the ability to help family members with her medications and other daily tasks. An ammonia level drawn in the ED and revealed to be slightly elevated at 56. Liver enzymes were within normal limits. Total bilirubin was elevated at 1.5. Renal function was normal. UA revealed signs of infection. Sample was sent in for culture. Patient was subsequently started on rocephin for the meanwhile. UDS was negative for any illicit drugs. Ethanol was negative. Electrolytes were within normal levels. When seen on the inpatient floor, patient was for the most part non-responsive to questions. He did display some aggressive and erratic behavior by trying to rip his IV out and trying to leave the room. When asked wether he wanted hurt himself or others, he stated that he "was going to leave earth." When asked why, he stated "by going to another dimension." Patient was unresponsive toward other questions. Past Med Surg Social Fam HX - Past Medical History Medical history: diabetes, hypertension, seizures Psychiatric history: no psych history - Past Surgical History Surgical History: no surgical history Additional surgical history: EEG - Social History Smoking Status: Never smoker Smokeless Tobacco Status: No Alcohol use: none Drug use: none - Family History Mother Living Status: Still Living Hx Family Neuromuscular Disorders: No Hx Family Neurologic Disorders: No Father Living Status: Still Living Hx Family Neuromuscular Disorders: No Hx Family Neurologic Disorders: No Internal Medicine - H&P: Meds Metformin HCl [Glucophage] 1,000 mg PO BID 06/27/18 [History] Omeprazole [PriLOSEC] 20 mg PO DAILY 06/27/18 [History] Topiramate [Topamax] 150 mg PO BID 06/27/18 [History] Aspirin Enteric Coated [Aspirin EC] 81 mg PO DAILY #30 tablet. 07/03/18 [Rx] OXcarbazepine [Oxcarbazepine] 600 mg PO BID 10/28/18 [History] Amitriptyline [Elavil] 50 mg PO HS tablet 11/05/18 [Rx] Cyanocobalamin (B-12) [Vitamin B12] 1,000 mcg PO DAILY #30 tablet 11/05/18 [Rx] Simvastatin [Zocor] 40 mg PO HS #30 tablet 11/05/18 [Rx] Allergy/AdvReac Type Severity Reaction Status Date / Time No Known Allergies Allergy Verified 11/04/18 14:28 ROS unobtainable: due to mental status All Systems PM: A 10-system review of systems was performed and is negative for pertinent findings except as documented above in the HPI. - Constitutional Vitals: Temp Pulse Resp BP Pulse Ox 97.6 F 62 16 128/74 98 12/16/18 11:16 12/16/18 11:16 12/16/18 14:39 12/16/18 14:39 12/16/18 11:16 General appearance: Absent: answers questions appropriately Exam: Unable to obtain due to mental status. Patient did seem agitated at times. - Head Head exam: Present: atraumatic, normocephalic - Eye Eye exam: Present: PERRL, conjuntiva pink, sclera anicteric Pupils: Present: PERRL - Respiratory Respiratory exam: Present: CTAB. Absent: accessory muscle use, rales, rhonchi, wheezes - Cardiovascular Cardiovascular exam: Present: RRR, +S1, +S2. Absent: diastolic murmur, gallop, rubs, systolic murmur - GI/Abdominal GI/Abdominal exam: Present: normal bowel sounds, soft, no peritoneal signs. Absent: distended, guarding, hepatomegaly, rebound, tenderness - Extremities Exam Extremities exam: Present: warm, radial pulses palpable and symmetrical. Absent: calf tenderness, cyanotic, pedal edema - Neurological Exam Neurological exam: Present: reflexes normal, no focal deficits, strengths equal and symetr throughout Additional comments: Unresponsive to questions. - Psychiatric Psychiatric exam: Present: agitated, flat affect - Skin Additional comments: No jaundice noted. Old laceration noted on right forehead that is dry and healing. Internal Med - H&P Results - Labs CBC & Chem 7: 12/16/18 11:32 12/16/18 11:23 Labs: Short CBC 12/16/18 Range/Units 11:32 WBC 8.1 (4.3-11.1) K/mcL Hgb 14.4 (12.9-16.9) g/dL Hct 42.0 (37.5-50.1) % Plt Count 167 (140-400) K/mcL Neutrophils # 4.9 (1.6-8.9) K/mcL BMP 12/16/18 11:23 Sodium 142 Potassium 3.5 Chloride 114 H Carbon Dioxide 21 L BUN 5 L Creatinine 0.70 Glucose 125 H Calcium 8.8 Cardiac Enzymes 12/16/18 Range/Units 11:23 Troponin I < 0.03 (< 0.04) ng/mL Liver Function 12/16/18 Range/Units 11:23 Total Bilirubin 1.5 H (0.3-1.0) mg/dL Direct Bilirubin 0.5 H (0.0-0.2) mg/dL AST 15 (13-39) Units/L ALT 14 (7-52) Units/L Alkaline Phosphatase 78 (34-104) Units/L Albumin 3.7 (3.5-5.7) g/dL Urine 12/16/18 Range/Units 12:08 Urine Color Dark Yellow (Yellow) Urine Clarity Cloudy A (Clear) Urine pH 6.0 (5.0-8.0) pH Units Ur Specific [place] 1.011 (1.010-1.025) Urine Protein 30 H (Neg-Trace) mg/dL Urine Glucose (UA) Normal (Normal) mg/dL - Impressions ITS Impressions Chest X-Ray 12/16/18 11:23 IMPRESSION: 1. Mildly enlarged cardiac silhouette with prominence of the pulmonary vasculature, which appears similar to the prior exam. 2. Otherwise, no convincing acute cardiopulmonary abnormality. D/ / Hector Govea MD / Hector Govea MD Interpreting Provider: Hector Govea MD Head CT 12/16/18 12:01 IMPRESSION: 1. No acute intracranial abnormality. 2. Chronic small vessel ischemic disease. 3. Remote right temporal lobe infarct. D/ / Aaron Alarcon MD / Aaron Alarcon MD Interpreting Provider: Aaron Alarcon MD <Swapna Merino - Last Filed: 12/16/18 16:27> Date of Encounter: 12/16/18 Internal Medicine - H&P: HPI History of present illness: Mr. Carreon is a 43 year old male All Systems PM: A 10-system review of systems was performed and is negative for pertinent findings except as documented above in the HPI. - Constitutional Vitals: Temp Pulse Resp BP Pulse Ox 97.6 F 62 16 128/74 98 12/16/18 11:16 12/16/18 11:16 12/16/18 14:39 12/16/18 14:39 12/16/18 11:16 Internal Med - H&P Results - Labs CBC & Chem 7: 12/16/18 11:32 12/16/18 11:23 Labs: Short CBC 12/16/18 Range/Units 11:32 WBC 8.1 (4.3-11.1) K/mcL Hgb 14.4 (12.9-16.9) g/dL Hct 42.0 (37.5-50.1) % Plt Count 167 (140-400) K/mcL Neutrophils # 4.9 (1.6-8.9) K/mcL BMP 12/16/18 11:23 Sodium 142 Potassium 3.5 Chloride 114 H Carbon Dioxide 21 L BUN 5 L Creatinine 0.70 Glucose 125 H Calcium 8.8 Cardiac Enzymes 12/16/18 Range/Units 11:23 Troponin I < 0.03 (< 0.04) ng/mL Liver Function 12/16/18 Range/Units 11:23 Total Bilirubin 1.5 H (0.3-1.0) mg/dL Direct Bilirubin 0.5 H (0.0-0.2) mg/dL AST 15 (13-39) Units/L ALT 14 (7-52) Units/L Alkaline Phosphatase 78 (34-104) Units/L Albumin 3.7 (3.5-5.7) g/dL Urine 12/16/18 Range/Units 12:08 Urine Color Dark Yellow (Yellow) Urine Clarity Cloudy A (Clear) Urine pH 6.0 (5.0-8.0) pH Units Ur Specific [place] 1.011 (1.010-1.025) Urine Protein 30 H (Neg-Trace) mg/dL Urine Glucose (UA) Normal (Normal) mg/dL - Impressions ITS Impressions Chest X-Ray 12/16/18 11:23 IMPRESSION: 1. Mildly enlarged cardiac silhouette with prominence of the pulmonary vasculature, which appears similar to the prior exam. 2. Otherwise, no convincing acute cardiopulmonary abnormality. D/ / Hector Govea MD / Hector Govea MD Interpreting Provider: Hector Govea MD Head CT 12/16/18 12:01 IMPRESSION: 1. No acute intracranial abnormality. 2. Chronic small vessel ischemic disease. 3. Remote right temporal lobe infarct. D/ / Aaron Alarcon MD / Aaron Alarcon MD Interpreting Provider: Aaron Alarcon MD - Attending Attestation I examined this patient and my medical decision-making was reviewed with the Resident Physician Dr. Martinez. I agree with the documented findings, disposition and treatment plan as described except to the extent set forth below. Mr. Carreon is a 43 y/o M with known PMH of chronic recurrent hepatic encephalopathy with underline iatrogenic cirrhosis of liver, psychiatric pr oblems and chronic seizure disorder pt who has multiple hospitalizations in this hospital due to her altered mental status now h patient is unable to provide any history . e was brought into the ER with altered mental status. Pt is confused, agitated and combative at times. Patient is not able to provide any history. All the information we have here from ER documentation. Gen: Incoherent, not following any commands Chest: Diminished BS b/l No crackles , no rales Heart: S1S2+ RRR No murmurs Psych: Delusions + Confused + a/p 1. Acute delirium 2. Acute hepatic encephalopathy 3. Possible acute psychosis related to underline psychiatric disorder schizophrenia / bipolar 4. Cirrhosis of liver Admit the pt into Med Surg Haldol IV PRN 1 on 1 sitter Resumed home seizure medication Started on PO lactulose 20mg TID close monitoring of Ammonia level psychiatry consulted
[2018-12-16 15:46] LABS: INR 1.4; Prothrombin Time 15.5 Seconds (9.4-12.1)
[2018-12-16 15:48] LABS: Activated Partial Thrombo Time 32.3 Seconds (26.0-36.0)
[2018-12-16] MEDS: Aspirin Enteric Coated 81 MG Tablet PO SCH (16:40)
[2018-12-16] MEDS: *HR* Heparin 5,000 UNIT/ML VIAL SQ SCH (17:12)
[2018-12-16] MEDS: 0.9 % Sodium Chloride 1,000 ML IVC SCH (18:24)
[2018-12-16] MEDS ORDERED: Haloperidol Lactate 5 MG/ML VIAL IM PRN (20:53)
[2018-12-16] MEDS: Topiramate 100 MG TABLET PO SCH (21:01)
[2018-12-16] MEDS: OXcarbazepine 150 MG TABLET PO SCH (21:01)
[2018-12-17] MEDS: 0.9 % Sodium Chloride 1,000 ML IVC SCH (04:45)
[2018-12-17] MEDS: *HR* Heparin 5,000 UNIT/ML VIAL SQ SCH ×2 (06:03→18:15)
[2018-12-17] MEDS: Haloperidol Lactate 5 MG/ML VIAL IVP PRN ×2 (06:05→12:36)
[2018-12-17] MEDS: Topiramate 100 MG TABLET PO SCH ×2 (09:28→20:28)
[2018-12-17] MEDS: Lactulose Oral Soln 20 GM/30 ML UDC PO SCH ×3 (09:28→20:28)
[2018-12-17] MEDS: cefTRIAXone 1,000 MG in Water for inj. (sterile) 20 ML 10 ML IVP SCH (09:29)
[2018-12-17] MEDS: OXcarbazepine 150 MG TABLET PO SCH ×2 (09:29→20:28)
[2018-12-17] MEDS: Aspirin Enteric Coated 81 MG Tablet PO SCH (09:29)
--- NOTE | 2018-12-17 10:09 | Internal Med Progress Note ---
Hospitalist Progress Note - Encounter Date of Encounter: 12/17/18 Time of Encounter: 10:08 - Subjective Interval History: 43 M with PMH of seizure disorder, DM, HTN, who is admitted to observation for encephalopathy of unknown etiology Patient is seen at the bedside this mrn His work up so far has been unremarkable, except for an abnormal UA Head imaging -CT showed remote infarct, o acute processed Patient is almost mute on exam today, flat affect, answers questions with monosyllables and is disoriented Awaiting psych eval - Exam Vitals: Temp Pulse Resp BP Pulse Ox 97.3 F L 71 18 133/76 97 12/17/18 07:58 12/17/18 07:58 12/17/18 07:58 12/17/18 07:58 12/17/18 07:58 Exam: Gen: obese male, sitting up in bed, not making eye contact, distracted HEENT: Moist oral mucosa, no thrush, not in any form of distress Chest: CTAb, no added sounds heart: S1, S2 only, no g/m/r Abdomen: Soft, not tender, no palpably enlarged organs Extremities: No edema Neuro: No facial paralysis, speech is normal when patient does talk, moves all extremities spontaneosly Psych: Flat affect - Assessment and Plan (1) UTI (urinary tract infection) Current Visit: Yes Status: Suspected Assessment and Plan: Patient with abnormal UA with delirium/psychosis Urine culture not done yet requested again Continue ceftriaxone-day 2 (2) Acute encephalopathy Current Visit: Yes Status: Acute Assessment and Plan: Etiology unknown Renal function at baseline, LFT unremarkable, ammonia level 50 Psych eval noted-no evidence of primary thought disorder Head CT is unremarkable Will request Brain MRI Continue prn haldol Continue sitter at bedside (3) DVT prophylaxis Current Visit: Yes Status: Acute Assessment and Plan: SQ heparin (4) Psychiatric disorder Current Visit: Yes Status: Suspected Assessment and Plan: see AMS (5) DM type 2 (diabetes mellitus, type 2) Current Visit: Yes Status: Chronic Assessment and Plan: FS ACHS SSI for now ADA diet (6) HLD (hyperlipidemia) Current Visit: Yes Status: Chronic Assessment and Plan: continue home meds (7) HTN (hypertension) Current Visit: Yes Status: Chronic Assessment and Plan: controlled, continue home meds (8) History of CVA (cerebrovascular accident) Current Visit: Yes Status: Chronic Assessment and Plan: head CT with evidence of remote infarct MRI pending Continue ASA, Add lipitor (9) Obesity (BMI 30.0-34.9) Current Visit: Yes Status: Chronic (10) Seizure disorder Current Visit: Yes Status: Chronic Assessment and Plan: continue home meds, seizure precautions - Time Spent with Patient Total time spent is greater than 50% in coordination of care (as documented) at patient's floor/unit and/or counseling patient: Plan of Care Discussed with: nurse Internal Medicine: Result - Labs CBC & Chem 7: 12/16/18 11:32 12/16/18 11:23 Labs: Short CBC 12/16/18 Range/Units 11:32 WBC 8.1 (4.3-11.1) K/mcL Hgb 14.4 (12.9-16.9) g/dL Hct 42.0 (37.5-50.1) % Plt Count 167 (140-400) K/mcL Neutrophils # 4.9 (1.6-8.9) K/mcL BMP 12/16/18 11:23 Sodium 142 Potassium 3.5 Chloride 114 H Carbon Dioxide 21 L BUN 5 L Creatinine 0.70 Glucose 125 H Calcium 8.8 Cardiac Enzymes 12/16/18 Range/Units 11:23 Troponin I < 0.03 (< 0.04) ng/mL Liver Function 12/16/18 Range/Units 11:23 Total Bilirubin 1.5 H (0.3-1.0) mg/dL Direct Bilirubin 0.5 H (0.0-0.2) mg/dL AST 15 (13-39) Units/L ALT 14 (7-52) Units/L Alkaline Phosphatase 78 (34-104) Units/L Albumin 3.7 (3.5-5.7) g/dL Urine 12/16/18 Range/Units 12:08 Urine Color Dark Yellow (Yellow) Urine Clarity Cloudy A (Clear) Urine pH 6.0 (5.0-8.0) pH Units Ur Specific [place] 1.011 (1.010-1.025) Urine Protein 30 H (Neg-Trace) mg/dL Urine Glucose (UA) Normal (Normal) mg/dL - ABG Interpretation ABG results: PT/INR, D-dimer PT 15.5 Seconds (9.4-12.1) H 12/16/18 14:56 - Impressions Impressions Chest X-Ray 12/16/18 11:23 IMPRESSION: 1. Mildly enlarged cardiac silhouette with prominence of the pulmonary vasculature, which appears similar to the prior exam. 2. Otherwise, no convincing acute cardiopulmonary abnormality. D/ / Hector Govea MD / Hector Govea MD Interpreting Provider: Hector Govea MD Head CT 12/16/18 12:01 IMPRESSION: 1. No acute intracranial abnormality. 2. Chronic small vessel ischemic disease. 3. Remote right temporal lobe infarct. 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
[2018-12-17] MEDS ORDERED: D5% in Water 1,000 ML IVC PRN (10:17)
[2018-12-17] MEDS ORDERED: *HR* Dextrose 50 % in Water (Syg) 50 ML SYRINGE IVP PRN (10:17)
[2018-12-17] MEDS ORDERED: Dextrose Gel 15 GM/37.5 ML TUBE PO PRN ×2 (10:17)
--- NOTE | 2018-12-17 12:36 | Consult Note ---
Date of Encounter: 12/17/18 Time of Encounter: 12:29 Assessment & Recommendation (1) Altered mental status Current visit: Yes Status: Acute Assessment & Recommendation: Client is confused and not oriented to time, place, or situation. He appears to be delirious. There is no evidence of a primary thought disorder. Do not think his presentation is related to mental illness but antipsychotics should be used to help stabilize him. Low dose Haldol is a good choice. Given his history of seizures will probably want to use low doses to start as antipscyhotics can lower the seizure threshold . Can give 2mg at a time. If he tolerates the 2mg can go up to 5mg at a time. Can be given PO, IM, or IV. If given IV would keep him on telemetry. Would rule out seizures as a cause for his presentation as his home med compliance is unknown. Psychosis could be related to interictal psychosis. UTI could also be the cause of his presentation. Will follow along. Qualifiers: Altered mental status type: delirium Qualified Code(s): R41.0 - Disorientation, unspecified (2) Altered mental status Current visit: Yes Status: Acute Qualifiers: Altered mental status type: disorientation Qualified Code(s): R41.0 - Disorientation, unspecified History of Present Illness Requesting Physician: Perry Avelar MD Reason for consult: [facility] History of present illness: Mr. Carreon is a 43 year old male who was admitted with mental status changes. Multiple medical problems including a seizure disorder and a history of hepatic encephalopathy. Ammonia slightly elevated but not likely the source of his presentation this time. Unclear if he has been having seizures. UA shows evidence of a UTI. On eval today client is disoriented and confused. Thinks he is in a bar. Stated the date as 1974. Unable to give any reliable history. From the notes reviewed client does not have a mental health history but has been seen by psychiatry in consultation due to psychosis associated with his medical issues. CC: Perry Avelar MD Past Med Surg Social Fam HX - Past Medical History Medical history: diabetes, hypertension, seizures - Past Psychiatric History Psychiatric history: Reports: no psych history Family psychiatric history: Unknown Family History of Suicide: Unknown - Past Surgical History Surgical History: no surgical history - Social History Smoking Status: Never smoker Smokeless Tobacco Status: No Alcohol use: none Drug use: none - Family History Mother Living Status: Still Living Hx Family Neuromuscular Disorders: No Hx Family Neurologic Disorders: No Father Living Status: Still Living Hx Family Neuromuscular Disorders: No Hx Family Neurologic Disorders: No Medications & Allergies Ammonium Lactate [Amlactin] 1 appl TP BID PRN 12/17/18 [History] Calcipotriene [Dovonex] 1 appl TP TID PRN 12/17/18 [History] Lactulose 15 gm PO BID 12/17/18 [History] Metformin HCl [Glucophage] 1,000 mg PO BID 12/17/18 [History] OXcarbazepine [Oxcarbazepine] 600 mg PO BID 12/17/18 [History] Omeprazole [PriLOSEC] 20 mg PO DAILY 12/17/18 [History] Tizanidine HCl [Zanaflex] 4 mg PO QID 12/17/18 [History] Topiramate 50 mg PO BID 12/17/18 [History] Allergy/AdvReac Type Severity Reaction Status Date / Time No Known Allergies Allergy Verified 11/04/18 14:28 Review of Systems Constitutional: Denies: fever, chills, weakness, weight change Eyes: Denies: eye pain, vision change Ears, Nose, Throat: Denies: ear pain, throat pain, dental pain, hearing loss, congestion Cardiovascular: Denies: chest pain, palpitations, dyspnea on exertion Respiratory: Denies: cough, dyspnea, wheezes Gastrointestinal: Denies: abdominal pain, nausea, vomiting, diarrhea, constipation Genitourinary male: Denies: urgency, dysuria, frequency, genital lesions Musculoskeletal: Denies: joint swelling, joint pain Integumentary: Denies: rash, lesions, pruritus Neurological: Reports: confusion Endocrine: Denies: fatigue, heat or cold intolerance Hematologic/Lymphatic: Denies: easy bruising, lymphadenopathy Allergic/Immunologic: Denies: urticaria, itchy eyes Psychiatry Exam - Constitutional Vitals: Temp Pulse Resp BP Pulse Ox 98.3 F 71 18 139/85 98 12/17/18 11:26 12/17/18 11:26 12/17/18 11:26 12/17/18 11:26 12/17/18 11:26 General appearance: age & developmentally appropriate - Musculoskeletal Gait: other Station: relaxed Strength & Tone: other - Psychiatric Patient Orientation: Yes Other Level of alertness: Sedated Behavior: calm Psychomotor activity: Slowed Eye Contact: Avoids Eye Contact Mood Description: Depressed Affect description: blunted Speech Volume: Soft/Quiet Speech pattern: mumbled Language & Vocabulary: consistent with education Thought Process: [place], Slowed Thinking Thought Content: Yes Poverty of Content Perceptual Disturbances: Yes Reacting to internal stimuli Attention Span Ability: Unable to Focus, Unable to Sustain Attention Memory Description: Immediate Impaired, Recent Impaired, Remote Impaired Patient Reliability: Not Reliable Historian Intelligence Estimate: Average Judgment: Poor Insight: Minimal Results - Labs Labs: Laboratory Last Values WBC 8.1 K/mcL (4.3-11.1) 12/16/18 11:32 RBC 4.62 M/mcL (4.19-5.50) 12/16/18 11:32 Hgb 14.4 g/dL (12.9-16.9) 12/16/18 11:32 Hct 42.0 % (37.5-50.1) 12/16/18 11:32 MCV 90.9 fL (83.0-100.0) 12/16/18 11:32 MCH 31.2 pg (28.0-33.3) 12/16/18 11:32 MCHC 34.3 g/dL (31.6-35.5) 12/16/18 11:32 RDW 14.9 % (11.5-14.5) H 12/16/18 11:32 Plt Count 167 K/mcL (140-400) 12/16/18 11:32 MPV 10.9 fL (9.4-12.4) 12/16/18 11:32 Immature Gran % 0.2 % (0-4) 12/16/18 11:32 Seg Neutrophils % 59.9 % 12/16/18 11:32 Lymphocytes % 29.5 % 12/16/18 11:32 Monocytes % 8.0 % 12/16/18 11:32 Eosinophils % 1.2 % 12/16/18 11:32 Basophils % 1.2 % 12/16/18 11:32 Neutrophils # 4.9 K/mcL (1.6-8.9) 12/16/18 11:32 Lymphocytes # 2.4 K/mcL (0.6-4.6) 12/16/18 11:32 Monocytes # 0.7 K/mcL (0.0-1.3) 12/16/18 11:32 Eosinophils # 0.1 K/mcL (0.0-0.6) 12/16/18 11:32 Basophils # 0.1 K/mcL (0.0-0.2) 12/16/18 11:32 PT 15.5 Seconds (9.4-12.1) H 12/16/18 14:56 INR 1.4 12/16/18 14:56 APTT 32.3 Seconds (26.0-36.0) 12/16/18 14:56 Sodium 142 mEq/L (136-145) 12/16/18 11:23 Potassium 3.5 mEq/L (3.5-5.1) 12/16/18 11:23 Chloride 114 mEq/L (98-107) H 12/16/18 11:23 Carbon Dioxide 21 mEq/L (23-29) L 12/16/18 11:23 BUN 5 mg/dL (6-20) L 12/16/18 11:23 Creatinine 0.70 mg/dL (0.70-1.30) 12/16/18 11:23 Est GFR ( Amer) > 60 (> 60) 12/16/18 11:23 Est GFR (Non-Af Amer) > 60 (> 60) 12/16/18 11:23 BUN/Creatinine Ratio 7 (6-26) 12/16/18 11:23 Glucose 125 mg/dL (70-105) H 12/16/18 11:23 Calculated Osmolality 293 (280-300) 12/16/18 11:23 Calcium 8.8 mg/dL (8.6-10.3) 12/16/18 11:23 Total Bilirubin 1.5 mg/dL (0.3-1.0) H 12/16/18 11:23 Direct Bilirubin 0.5 mg/dL (0.0-0.2) H 12/16/18 11:23 Indirect Bilirubin 1.0 mg/dL (0.0-1.2) 12/16/18 11:23 AST 15 Units/L (13-39) 12/16/18 11:23 ALT 14 Units/L (7-52) 12/16/18 11:23 Alkaline Phosphatase 78 Units/L (34-104) 12/16/18 11:23 Ammonia 51 mcmol/L (16-53) 12/16/18 17:33 Troponin I < 0.03 ng/mL (< 0.04) 12/16/18 11:23 Serum Total Protein 7.5 g/dL (6.4-8.9) 12/16/18 11:23 Albumin 3.7 g/dL (3.5-5.7) 12/16/18 11:23 Globulin 3.8 g/dL (2.4-3.5) H 12/16/18 11:23 Albumin/Globulin Ratio 1.0 (1.1-2.2) L 12/16/18 11:23 Urine Color Dark Yellow (Yellow) 12/16/18 12:08 Urine Clarity Cloudy (Clear) A 12/16/18 12:08 Urine pH 6.0 pH Units (5.0-8.0) 12/16/18 12:08 Ur Specific [place] 1.011 (1.010-1.025) 12/16/18 12:08 Urine Protein 30 mg/dL (Neg-Trace) H 12/16/18 12:08 Urine Glucose (UA) Normal mg/dL (Normal) 12/16/18 12:08 Urine Ketones Negative mg/dL (Negative) 12/16/18 12:08 Urine Blood Large (Negative) H 12/16/18 12:08 Urine Nitrite Negative (Negative) 12/16/18 12:08 Urine Bilirubin Negative (Negative) 12/16/18 12:08 Urine Urobilinogen Normal mg/dL (Normal) 12/16/18 12:08 Ur Leukocyte Esterase Moderate (Negative) H 12/16/18 12:08 Urine Microscopic RBC 50-100 per hpf (0-3) H 12/16/18 12:08 Urine Microscopic WBC 30-50 per hpf (0-3) H 12/16/18 12:08 Ur Squamous Epith Cells Many per lpf (None-Few) H 12/16/18 12:08 Urine Bacteria Moderate per hpf (None-Few) H 12/16/18 12:08 Hyaline Casts Moderate per lpf (None-Few) H 12/16/18 12:08 Ur Culture Indicated? NO. (NO) A 12/16/18 12:08 Urine Opiates Screen Negative ng/mL (Jypcui=488) 12/16/18 12:08 Ur Barbiturates Screen Negative ng/mL (Rzciik=336) 12/16/18 12:08 Ur Phencyclidine Scrn Negative ng/mL (Cutoff=25) 12/16/18 12:08 Ur Amphetamines Screen Negative ng/mL (Fiiikx=1412) 12/16/18 12:08 U Benzodiazepines Scrn Negative ng/mL (Bmzwbz=328) 12/16/18 12:08 Urine Cocaine Screen Negative ng/mL (Cutoff= 300) 12/16/18 12:08 U Marijuana (THC) Screen Negative ng/mL (Cutoff = 50) 12/16/18 12:08 Ur Drug Screen Interp See Below 12/16/18 12:08 Ethyl Alcohol < 10 mg/dL (Less than 10) 12/16/18 11:23 - Impressions Impressions Head CT 12/16/18 12:01 IMPRESSION: 1. No acute intracranial abnormality. 2. Chronic small vessel ischemic disease. 3. Remote right temporal lobe infarct. D/ / Aaron Alarcon MD / Aaron Alarcon MD Interpreting Provider: Aaron Alarcon MD Consult Discharge Plan - Plan Referrals: NONE,PCP [Primary Care Provider] -
[2018-12-17] MEDS: Insulin LISPRO 300 UNITS/3 ML VIAL SQ SCH ×3 (13:14→20:27)
[2018-12-17 15:34] LABS: Bilirubin,Urine Negative (Negative); Blood,Urine Negative (Negative); Clarity,Urine Clear (Clear); Color,Urine Yellow (Yellow); Glucose,Urine (UA) Normal (Normal); Ketones,Urine Negative (Negative); Leukocyte Esterase,Urine Trace (Negative); Nitrite,Urine Negative (Negative); PH,Urine 5.5 pH Units (5.0-8.0); Protein,Urine Negative (Neg-Trace); Specific Gravity,Urine 1.007 (1.010-1.025); Urobilinogen,Urine Normal (Normal)
[2018-12-17 15:37] LABS: Bacteria,Urine None Seen per hpf (None-Few); Hyaline Casts,Urine None Seen per lpf (None-Few); RBC,Urine 0-3 per hpf (0-3); Squamous Epithelial Cell,Urine Few per lpf (None-Few)
[2018-12-18] MEDS: *HR* Heparin 5,000 UNIT/ML VIAL SQ SCH ×2 (06:03→17:18)
[2018-12-18] MEDS: Lactulose Oral Soln 20 GM/30 ML UDC PO SCH ×3 (08:58→21:08)
[2018-12-18] MEDS: Topiramate 100 MG TABLET PO SCH (08:58)
[2018-12-18] MEDS: OXcarbazepine 150 MG TABLET PO SCH (08:58)
[2018-12-18] MEDS: Aspirin Enteric Coated 81 MG Tablet PO SCH (08:58)
[2018-12-18] MEDS: cefTRIAXone 1,000 MG in Water for inj. (sterile) 20 ML 10 ML IVP SCH (08:59)
[2018-12-18] MEDS: Insulin LISPRO 300 UNITS/3 ML VIAL SQ SCH ×4 (09:07→21:06)
[2018-12-18] MEDS ORDERED: Haloperidol Lactate 5 MG/ML VIAL IVP PRN (13:44)
--- NOTE | 2018-12-18 13:49 | Internal Med Progress Note ---
Hospitalist Progress Note - Encounter Date of Encounter: 12/18/18 Time of Encounter: 13:46 - Subjective Interval History: Pt has severe pschomotor retardation, doesnt' recall anything he stated that he thinks he seized again.\ This is a 43 yom has extesnive past medical history presents with confusion 1)confusioN: polypharmacy vs. seizure disorder recurrent vs. psych issues Pysch service deems not a psych issue, probably polypharmacy We will think down to monotherapy with keppra Topomax can cuases diffuse hosts of symptomas will see if pt can be switched to keppra --EEG --keppra -seizure precuations 2) psych related issues: deffered to psycg hladol 5 i Q6 PRN 3)UTI: cont abx will need out pt urology consult 4)dispo: Possible D/C in AM with abx for 2 weeks for UTI/postatis TIme: 35min - Exam Vitals: Temp Pulse Resp BP Pulse Ox 98.2 F 62 15 117/76 97 12/18/18 11:55 12/18/18 11:55 12/18/18 11:55 12/18/18 11:55 12/18/18 11:55 Exam: Gen: obese male, sitting up in bed, not making eye contact, distracted HEENT: Moist oral mucosa, no thrush, not in any form of distress Chest: CTAb, no added sounds heart: S1, S2 only, no g/m/r Abdomen: Soft, not tender, no palpably enlarged organs Extremities: No edema Neuro: No facial paralysis, speech is normal when patient does talk, moves all extremities spontaneosly Psych: Flat affect - Time Spent with Patient Total time spent is greater than 50% in coordination of care (as documented) at patient's floor/unit and/or counseling patient: Internal Medicine: Result - Labs CBC & Chem 7: 12/16/18 11:32 12/16/18 11:23 Labs: Urine 12/17/18 Range/Units 15:14 Urine Color Yellow (Yellow) Urine Clarity Clear (Clear) Urine pH 5.5 (5.0-8.0) pH Units Ur Specific [place] 1.007 L (1.010-1.025) Urine Protein Negative (Neg-Trace) mg/dL Urine Glucose (UA) Normal (Normal) mg/dL - ABG Interpretation ABG results: PT/INR, D-dimer PT 15.5 Seconds (9.4-12.1) H 12/16/18 14:56 - Impressions Impressions Brain MRI 12/17/18 10:07 IMPRESSION: No evidence of acute intracranial abnormality. Stable right temporal lobe encephalomalacia. D/ / 12/17/2018 13:31:00 Yassine Woodson MD / earnold Interpreting Provider: Yassine Woodson MD Consult Discharge Plan - Plan Referrals: NONE,PCP [Primary Care Provider] -
[2018-12-18] MEDS: levETIRAcetam 250 MG TABLET PO SCH (17:18)
[2018-12-19] MEDS: *HR* Heparin 5,000 UNIT/ML VIAL SQ SCH (05:10)
[2018-12-19] MEDS: levETIRAcetam 250 MG TABLET PO SCH (05:11)
[2018-12-19] MEDS: Insulin LISPRO 300 UNITS/3 ML VIAL SQ SCH ×2 (08:41→14:08)
[2018-12-19] MEDS: Lactulose Oral Soln 20 GM/30 ML UDC PO SCH (09:26)
[2018-12-19] MEDS: Aspirin Enteric Coated 81 MG Tablet PO SCH (09:26)
[2018-12-19] MEDS: cefTRIAXone 1,000 MG in Water for inj. (sterile) 20 ML 10 ML IVP SCH (09:26)
--- NOTE | 2018-12-19 11:17 | Discharge Summary ---
- NOTES TO OUTPATIENT PROVIDER Notes to Outpatient Provider: PCP 2- 5dyas, neurology in 1 wk, psych in 1 wk Orders not resulted at time of discharge: Pending orders 12/16/18 13:30 Culture,Urine [RM] Stat Date of Encounter: 12/19/18 Time of Encounter: 11:15 - Discharge Diagnosis (1) Altered mental status Priority: Primary Status: Acute Assessment and Plan: improved Qualifiers: Altered mental status type: disorientation Qualified Code(s): R41.0 - Disorientation, unspecified Hospital course: Mr. Carreon is a 43 year old male with a PMH of seizures, CVA, HTN, T2DM, fatty liver, and possible liver cirrhosis that presents for altered mental status. Patient presented to the ED on 12/16/18. He was accompanied by his mother at bedside. According to the mother, patient was recently admitted to an outside hospital for high ammonia levels. He was supposed to be taking lactulose. According to the mother, he was discharged today. When the patient went home, he become more aggressive than usual. She was concerned that he was going to become violent at hurt others in the household. According to mother, patient is not at his baseline, which usually involves the ability to help family members with her medications and other daily tasks. An ammonia level drawn in the ED and revealed to be slightly elevated at 56. Liver enzymes were within normal limits. Total bilirubin was elevated at 1.5. Renal function was normal. UA revealed signs of infection. Sample was sent in for culture. Patient was subsequently started on rocephin for the meanwhile. UDS was negative for any illicit drugs. Ethanol was negative. Pt was kept in the hospital an dpsych saw the pt, it was thought this confusio is not psych mediated. Pt remained calm, and pt does NOT have SI, HI, AVH; still reluctant to talk, but no other medical issues, pt is being discharged and will follow up with out pt psych and neurolgoy. Of note, pt thinks he had seizure, which he will see neurology about. Pt will go home with lactulose as well. - Time Spent with Patient Total time spent providing and/or coordinating discharge services: - Discharge Medications Prescriptions: levETIRAcetam [Roweepra] 2 tab PO BID #60 tablet Quetiapine Fumarate [SEROquel] 25 mg PO BID #60 tablet Home Medications: Ammonium Lactate [Amlactin] 1 appl TP BID PRN 12/17/18 [History] Calcipotriene [Dovonex] 1 appl TP TID PRN 12/17/18 [History] Lactulose 15 gm PO BID 12/17/18 [History] Metformin HCl [Glucophage] 1,000 mg PO BID 12/17/18 [History] Omeprazole [PriLOSEC] 20 mg PO DAILY 12/17/18 [History] Quetiapine Fumarate [SEROquel] 25 mg PO BID #60 tablet 12/19/18 [Rx] levETIRAcetam [Roweepra] 2 tab PO BID #60 tablet 12/19/18 [Rx] Allergies/Adverse Reactions: Allergy/AdvReac Type Severity Reaction Status Date / Time No Known Allergies Allergy Verified 11/04/18 14:28 Date of admission: 12/16/18 14:58 Primary care physician: PCP NONE Consults: 12/16/18 16:12 Consult to Psychiatry [CONS] Routine Consulting Provider: Psychiatry Sirisha Reason consult: Altered mental status Other reason and/or additional details: Patient has history of seizures, CVA, and hepatic encephalopathy. Ammonia slightly elevated but does not present clearly as hepatic encephalopathy. Might have underlying psychiatric disorder. Needs evaluation. Time Notified: 16:13 Call Completed: Yes 12/19/18 10:00 Consult to Interpret Exam [CONS] Routine Consulting Provider: Nain Xiong Consult to Interpret Exam: Interpret EEG - Constitutional Vitals: Temp Pulse Resp BP Pulse Ox 98.1 F 57 18 115/78 99 12/19/18 08:00 12/19/18 08:00 12/19/18 08:00 12/19/18 08:00 12/19/18 08:00 General appearance: Absent: answers questions appropriately Exam: Gen: obese male, sitting up in bed, not making eye contact, distracted HEENT: Moist oral mucosa, no thrush, not in any form of distress Chest: CTAb, no added sounds heart: S1, S2 only, no g/m/r Abdomen: Soft, not tender, no palpably enlarged organs Extremities: No edema Neuro: No facial paralysis, speech is normal when patient does talk, moves all extremities spontaneosly Psych: Flat affect - Patient Status Disposition: Home, Self-Care Condition: Fair - Discharge Instructions Follow Up With: NONE,PCP [Primary Care Provider] -
[2018-12-19 12:01] VITALS: BP 114/70
--- NOTE | 2018-12-19 12:25 | Consult Note ---
Date of Encounter: 12/19/18 Time of Encounter: 12:00 Assessment & Recommendation (1) Altered mental status Current visit: Yes Status: Resolved Assessment & Recommendation: pt is ok for discharge from psych perspective Qualifiers: Altered mental status type: delirium Qualified Code(s): R41.0 - Disorientation, unspecified History of Present Illness Patient: known to practice within the last 3 years (f/u) Requesting Physician: Tony Mcdonald Reason for consult: f/u for discharge clerance History of present illness: Mr. Carreon is a 43 year old male pt seen before due to mental status change with multiple medical etiology. Haldol was recommended. He is now doing well and primary team is ready for discharge. CC: Tony Mcdonald Past Med Surg Social Fam HX - Past Medical History Medical history: diabetes, hypertension, seizures - Past Psychiatric History Psychiatric history: Reports: no psych history Past psychiatric history details: see prior consult Family psychiatric history: No Family History of Suicide: None - Past Surgical History Surgical History: no surgical history - Social History Smoking Status: Never smoker Smokeless Tobacco Status: No Alcohol use: none Drug use: none - Family History Mother Living Status: Still Living Hx Family Neuromuscular Disorders: No Hx Family Neurologic Disorders: No Father Living Status: Still Living Hx Family Neuromuscular Disorders: No Hx Family Neurologic Disorders: No Medications & Allergies Ammonium Lactate [Amlactin] 1 appl TP BID PRN 12/17/18 [History] Calcipotriene [Dovonex] 1 appl TP TID PRN 12/17/18 [History] Lactulose 15 gm PO BID 12/17/18 [History] Metformin HCl [Glucophage] 1,000 mg PO BID 12/17/18 [History] Omeprazole [PriLOSEC] 20 mg PO DAILY 12/17/18 [History] Quetiapine Fumarate [SEROquel] 25 mg PO BID #60 tablet 12/19/18 [Rx] levETIRAcetam [Roweepra] 2 tab PO BID #60 tablet 12/19/18 [Rx] Allergy/AdvReac Type Severity Reaction Status Date / Time No Known Allergies Allergy Verified 11/04/18 14:28 Review of Systems Psychiatric: Reports: other (doing well now) Psychiatry Exam - Constitutional Vitals: Temp Pulse Resp BP Pulse Ox 98.0 F 59 15 114/70 97 12/19/18 12:00 12/19/18 12:00 12/19/18 12:00 12/19/18 12:00 12/19/18 12:00 - Psychiatric Patient Orientation: Yes Person, Yes Time, Yes Place, Yes Circumstance Level of alertness: Alert Behavior: calm, cooperative Psychomotor activity: Normal Eye Contact: Maintains Eye Contact Mood Description: Euthymic/stable Affect description: congruent with mood, full range Speech Volume: Normal Speech pattern: normal rate, normal rhythm, normal tone, fluent, spontaneous Language & Vocabulary: consistent with education Thought Process: Linear, Goal Oriented Thought Content: No Suicidal ideation, No Homicidal ideation, No Overt delusions Perceptual Disturbances: No Auditory hallucinations, No Visual hallucinations Attention Span Ability: Capable of Focused Attention Memory Description: Grossly Intact Patient Reliability: Reliable Historian Fund of knowledge: Yes abstraction ability, Yes aware of current events Intelligence Estimate: Average Judgment: Good Insight: Full Results - Labs Labs: Laboratory Last Values WBC 8.1 K/mcL (4.3-11.1) 12/16/18 11:32 RBC 4.62 M/mcL (4.19-5.50) 12/16/18 11:32 Hgb 14.4 g/dL (12.9-16.9) 12/16/18 11:32 Hct 42.0 % (37.5-50.1) 12/16/18 11:32 MCV 90.9 fL (83.0-100.0) 12/16/18 11:32 MCH 31.2 pg (28.0-33.3) 12/16/18 11:32 MCHC 34.3 g/dL (31.6-35.5) 12/16/18 11:32 RDW 14.9 % (11.5-14.5) H 12/16/18 11:32 Plt Count 167 K/mcL (140-400) 12/16/18 11:32 MPV 10.9 fL (9.4-12.4) 12/16/18 11:32 Immature Gran % 0.2 % (0-4) 12/16/18 11:32 Seg Neutrophils % 59.9 % 12/16/18 11:32 Lymphocytes % 29.5 % 12/16/18 11:32 Monocytes % 8.0 % 12/16/18 11:32 Eosinophils % 1.2 % 12/16/18 11:32 Basophils % 1.2 % 12/16/18 11:32 Neutrophils # 4.9 K/mcL (1.6-8.9) 12/16/18 11:32 Lymphocytes # 2.4 K/mcL (0.6-4.6) 12/16/18 11:32 Monocytes # 0.7 K/mcL (0.0-1.3) 12/16/18 11:32 Eosinophils # 0.1 K/mcL (0.0-0.6) 12/16/18 11:32 Basophils # 0.1 K/mcL (0.0-0.2) 12/16/18 11:32 PT 15.5 Seconds (9.4-12.1) H 12/16/18 14:56 INR 1.4 12/16/18 14:56 APTT 32.3 Seconds (26.0-36.0) 12/16/18 14:56 Sodium 142 mEq/L (136-145) 12/16/18 11:23 Potassium 3.5 mEq/L (3.5-5.1) 12/16/18 11:23 Chloride 114 mEq/L (98-107) H 12/16/18 11:23 Carbon Dioxide 21 mEq/L (23-29) L 12/16/18 11:23 BUN 5 mg/dL (6-20) L 12/16/18 11:23 Creatinine 0.70 mg/dL (0.70-1.30) 12/16/18 11:23 Est GFR ( Amer) > 60 (> 60) 12/16/18 11:23 Est GFR (Non-Af Amer) > 60 (> 60) 12/16/18 11:23 BUN/Creatinine Ratio 7 (6-26) 12/16/18 11:23 Glucose 125 mg/dL (70-105) H 12/16/18 11:23 POC Glucose 102 mg/dL (70-99) H 12/18/18 19:57 Calculated Osmolality 293 (280-300) 12/16/18 11:23 Calcium 8.8 mg/dL (8.6-10.3) 12/16/18 11:23 Total Bilirubin 1.5 mg/dL (0.3-1.0) H 12/16/18 11:23 Direct Bilirubin 0.5 mg/dL (0.0-0.2) H 12/16/18 11:23 Indirect Bilirubin 1.0 mg/dL (0.0-1.2) 12/16/18 11:23 AST 15 Units/L (13-39) 12/16/18 11:23 ALT 14 Units/L (7-52) 12/16/18 11:23 Alkaline Phosphatase 78 Units/L (34-104) 12/16/18 11:23 Ammonia 51 mcmol/L (16-53) 12/16/18 17:33 Troponin I < 0.03 ng/mL (< 0.04) 12/16/18 11:23 Serum Total Protein 7.5 g/dL (6.4-8.9) 12/16/18 11:23 Albumin 3.7 g/dL (3.5-5.7) 12/16/18 11:23 Globulin 3.8 g/dL (2.4-3.5) H 12/16/18 11:23 Albumin/Globulin Ratio 1.0 (1.1-2.2) L 12/16/18 11:23 Urine Color Yellow (Yellow) 12/17/18 15:14 Urine Clarity Clear (Clear) 12/17/18 15:14 Urine pH 5.5 pH Units (5.0-8.0) 12/17/18 15:14 Ur Specific [place] 1.007 (1.010-1.025) L 12/17/18 15:14 Urine Protein Negative mg/dL (Neg-Trace) 12/17/18 15:14 Urine Glucose (UA) Normal mg/dL (Normal) 12/17/18 15:14 Urine Ketones Negative mg/dL (Negative) 12/17/18 15:14 Urine Blood Negative (Negative) 12/17/18 15:14 Urine Nitrite Negative (Negative) 12/17/18 15:14 Urine Bilirubin Negative (Negative) 12/17/18 15:14 Urine Urobilinogen Normal mg/dL (Normal) 12/17/18 15:14 Ur Leukocyte Esterase Trace (Negative) H 12/17/18 15:14 Urine Microscopic RBC 0-3 per hpf (0-3) 12/17/18 15:14 Urine Microscopic WBC 5-15 per hpf (0-3) H 12/17/18 15:14 Ur Squamous Epith Cells Few per lpf (None-Few) 12/17/18 15:14 Urine Bacteria None Seen per hpf (None-Few) 12/17/18 15:14 Hyaline Casts None Seen per lpf (None-Few) 12/17/18 15:14 Ur Culture Indicated? YES (NO) A 12/17/18 15:14 Urine Opiates Screen Negative ng/mL (Tjmbzi=313) 12/16/18 12:08 Ur Barbiturates Screen Negative ng/mL (Gncyrw=128) 12/16/18 12:08 Ur Phencyclidine Scrn Negative ng/mL (Cutoff=25) 12/16/18 12:08 Ur Amphetamines Screen Negative ng/mL (Thgzpw=1762) 12/16/18 12:08 U Benzodiazepines Scrn Negative ng/mL (Oevhho=281) 12/16/18 12:08 Urine Cocaine Screen Negative ng/mL (Cutoff= 300) 12/16/18 12:08 U Marijuana (THC) Screen Negative ng/mL (Cutoff = 50) 12/16/18 12:08 Ur Drug Screen Interp See Below 12/16/18 12:08 Ethyl Alcohol < 10 mg/dL (Less than 10) 12/16/18 11:23 Consult Discharge Plan - Plan Instructions: Lactulose (By mouth) Additional Instructions: Follow-up appointments: If there is not an appointment listed below, please call your physician and schedule a follow-up appointment. If you have congestive heart failure and your symptoms return, make an appointment with your physician. Medication List: Carry an up to date list of medications you are taking at all time. We have given you an updated medication list including any new medications that you have been prescribed. Please provide that list to your primary provider Symptoms: If your condition changes or you experience any of the following symptoms, notify your physician immediately: Unusual or worsening pain, fever, persistent nausea and vomiting, bleeding, increase in swelling (especially in your legs), sudden weight gain, extreme dizziness, chest pain, increased drainage or redness from a wound or incision. Go to the emergency department if you experience a problem with breathing. Weights: If you have a history of swelling or shortness of breath, weigh yourself daily and notify your physician if you have a weight gain of two or more pounds in one day or 5 or more pounds in a week. If you experience any of the warning signs for stroke: Sudden numbness or weakness of the face, arm or leg; especially on one side of the body, sudden confusion, trouble speaking or understanding, sudden trouble seeing in one or both eyes, sudden trouble walking, dizziness, loss of balance or coordination, sudden sever headache with no cause; Call 911 or go to the emergency room. Stroke is a medical emergency. Some risk factors for stroke: Age, cigarette smoking, diabetes, excessive alcohol consumption, family history, high blood pressure, overweight, physical inactivity, prior stroke, heart attack, diagnosis of carotid artery stenosis or other artery disease. If you smoke, STOP: Smoking or tobacco use significantly increases your risk of heart and lung disease. Your chance of disease greatly increases if you continue to smoke. For more information, call the [place] tobacco quit line for smoking cessation 3-304-ZLZQ-NOW ( ) Referrals: Henri Montejo DO [Partnered Physician] - 12/28/18 2:00 pm Will Vasquez MD [Partnered Physician] - 12/27/18 8:30 am Prescriptions: levETIRAcetam [Roweepra] 2 tab PO BID #60 tablet Quetiapine Fumarate [SEROquel] 25 mg PO BID #60 tablet
--- NOTE | 2018-12-19 16:37 | EEG/EMG/Oth Biometrics Report ---
EEG Procedure Report Date of procedure: 12/19/18 EEG Procedure: Routine EEG Procedure Note: This is a report of a 21 channel bipolar and referential montage EEG. A posterior dominant rhythm of 10 Hz moderate voltage alpha frequencies identified symmetrically in the posterior head regions. Rhythm attenuates symmetrically with eye opening. Hyperventilation is performed and does not significantly alter the recording. Periods of drowsiness and stage II sleep are identified as reference by dropout of the posterior dominant rhythm and emergence of vertex activity, K complexes, and sleep spindles. Photic stimulations performed and produces a symmetric driving response. The EKG rhythm strip reveals sinus bradycardia at 54 bpm. Impressions: This EEG recording is within normal limits. There is no evidence of epileptiform activity identified during the study. Comment: A normal EEG does not preclude a diagnosis of seizure or epilepsy. If the clinical suspicion for seizure activity is high, serial EEGs or perhaps a prolonged recording may increase the yield. Please correlate clinically.
--- NOTE | 2018-12-20 06:19 | Electrocardiograph Report ---
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
== END 2018-12-19 14:28 | disposition home or self-care (01) | DRG 279 ==
LOC: EMEROOARM 10:57 → 3BNU 10:57 → SUATTDRO 14:58
PROVIDERS: ADMIT Hospitalist; ATTEND Internal Medicine